=== PATIENT | male | born 1955 | race Caucasian/White ===

== ENCOUNTER 2018-05-26 15:59 | Inpatient (IN) | payer OTHER ==
[~2018-05-26] VITALS: Ht 167.6 cm; Wt 67.5 kg
--- NOTE | 2018-05-26 18:28 | ED Respiratory ---
General Chief Complaint: Respiratory Problems Stated Complaint: SOB/SHOULDER PAIN/COUGH Nursing Triage Note: SOB for several weeks. Denies CP. C/o pain with cough in left shoulder and rib cage. Source: patient, other Exam Limitations: no limitations History of Present Illness Date Seen by Provider: May 26, 2018 Time Seen by Provider: 18:20 Initial Comments he patient presents to ER by private conveyance with his friend chief complaint for the past week with significant shortness of breath and productive cough. About 1-2 weeks ago he went to urgent care and they listened to him heard wheezing and gave him some prednisone and doxycycline as well as some Vistaril because he said he is having a hard time getting to sleep. He does not feel that this made any difference. The prednisone, hard time getting sleep. He took all but one tablet of it. He completed the doxycycline. History of asthma as a child but has not been on breathing treatments or followed by since that time. He does not know that he has any history of COPD, frequent pneumonia. He does smoke typically 1-1/2 packs a day however he slowed down. He's not had any fevers objectively but he does subjectively have some chills. He says he has a roommate who recently had a lot of coughing but no history of pneumonia, tuberculosis, HIV etc. His left upper chest gets to hurting after he coughs a lot and that also when he is coughing fits makes him want to throw up. He does not have any albuterol or similar nebulized medicine. No edema or history of heart problems. He does not take any routine or prescription in medicines. Allergies and Home Medications Allergies Coded Allergies: No Known Drug Allergies (Unverified , 05/26/18) Patient Home Medication List Home Medication List Reviewed: Yes Review of Systems Review of Systems Constitutional: No chills, No fever, No malaise EENTM: No ear discharge, No hearing loss, No ear pain Respiratory: cough, short of breath, wheezing Cardiovascular: chest pain (Left Chest); No edema Gastrointestinal: No abdominal pain, No constipation, No diarrhea Genitourinary: No discharge, No dysuria Musculoskeletal: No back pain, No joint pain Past Mszbzrl-Nbbabv-Mjxplq Hx Patient Social History Alcohol Use: Regular Use Alcohol Beverage of Choice: Beer Recreational Drug Use: No Smoking Status: Current Everyday Smoker Type Used: Cigarettes (1.5 ppd) Recent Foreign Travel: No Contact w/Someone Who Travel: No Recent Infectious Disease Expo: No Physical Exam Vital Signs - First Documented 05/26/18 16:45 Temp 97.1 Pulse 122 Resp 20 Pulse Ox 98 O2 Delivery Room Air Capillary Refill : Less Than 3 Seconds Height: 5'6.00" Weight: 162lbs. oz. 73.064545nx; BMI Method:Stated General Appearance: WD/WN, mild distress Eyes: Bilateral Eye Normal Inspection, Bilateral Eye PERRL, Bilateral Eye EOMI HEENT: PERRL/EOMI, normal ENT inspection, TMs normal, pharynx normal Neck: non-tender, full range of motion, supple, normal inspection Respiratory: chest non-tender, no respiratory distress, no accessory muscle use , decreased breath sounds, wheezing, expiration (Prolonged) Cardiovascular: normal peripheral pulses, regular rate, rhythm Gastrointestinal: normal bowel sounds, non tender, soft Neurologic/Psychiatric: alert, normal mood/affect, oriented x 3 Skin: normal color, warm/dry Focused Exam Lactate Level 05/26/18 18:45: Lactic Acid Level 2.52*H Lactic Acid Level Laboratory Tests Test 05/26/18 18:45 Lactic Acid Level 2.52 MMOL/L (0.50-2.00) *H Progress/Results/Core Measures Suspected Sepsis Recent Fever Within 48 Hours: No Infection Criteria Present: None New/Unexplained Altered Menta: No Sepsis Screen: No Definite Risk SIRS Temperature:97.1 Pulse: 122 Respiratory Rate: 20 Laboratory Tests 05/26/18 18:45: White Blood Count 11.0 Blood Pressure / Mean: 05/26/18 18:45: Lactic Acid Level 2.52*H Laboratory Tests 05/26/18 18:45: Creatinine 0.87, INR Comment 1.1, Platelet Count 258, Total Bilirubin 1.7H Results/Orders Lab Results Laboratory Tests Test 05/26/18 18:45 05/26/18 19:46 Range/Units White Blood Count 11.0 4.3-11.0 10^3/uL Red Blood Count 5.30 4.35-5.85 10^6/uL Hemoglobin 16.9 13.3-17.7 G/DL Hematocrit 48 40-54 % Mean Corpuscular Volume 91 80-99 FL Mean Corpuscular Hemoglobin 32 25-34 PG Mean Corpuscular Hemoglobin Concent 35 32-36 G/DL Red Cell Distribution Width 12.3 10.0-14.5 % Platelet Count 258 130-400 10^3/uL Mean Platelet Volume 9.0 7.4-10.4 FL Neutrophils (%) (Auto) 87 H 42-75 % Lymphocytes (%) (Auto) 6 L 12-44 % Monocytes (%) (Auto) 7 0-12 % Eosinophils (%) (Auto) 0 0-10 % Basophils (%) (Auto) 0 0-10 % Neutrophils # (Auto) 9.6 H 1.8-7.8 X 10^3 Lymphocytes # (Auto) 0.7 L 1.0-4.0 X 10^3 Monocytes # (Auto) 0.8 0.0-1.0 X 10^3 Eosinophils # (Auto) 0.0 0.0-0.3 10^3/uL Basophils # (Auto) 0.0 0.0-0.1 10^3/uL Neutrophils % (Manual) 91 % Lymphocytes % (Manual) 2 % Monocytes % (Manual) 6 % Atypical Lymphocytes 1 % Prothrombin Time 13.9 12.2-14.7 SEC INR Comment 1.1 0.8-1.4 Activated Partial Thromboplast Time 29 24-35 SEC D-Dimer 1.09 H 0.00-0.49 UG/ML Sodium Level 128 L 135-145 MMOL/L Potassium Level 4.4 3.6-5.0 MMOL/L Chloride Level 87 L 98-107 MMOL/L Carbon Dioxide Level 22 21-32 MMOL/L Anion Gap 19 H 5-14 MMOL/L Blood Urea Nitrogen 6 L 7-18 MG/DL Creatinine 0.87 0.60-1.30 MG/DL Estimat Glomerular Filtration Rate > 60 BUN/Creatinine Ratio 7 Glucose Level 116 H 70-105 MG/DL Lactic Acid Level 2.52 *H 0.50-2.00 MMOL/L Calcium Level 10.1 8.5-10.1 MG/DL Corrected Calcium 9.9 8.5-10.1 MG/DL Total Bilirubin 1.7 H 0.1-1.0 MG/DL Aspartate Amino Transf (AST/SGOT) 24 5-34 U/L Alanine Aminotransferase (ALT/SGPT) 24 0-55 U/L Alkaline Phosphatase 104 40-136 U/L Troponin I < 0.30 <0.30 NG/ML C-Reactive Protein High Sensitivity 2.65 H 0.00-0.50 MG/DL B-Type Natriuretic Peptide 142.1 H <100.0 PG/ML Total Protein 8.3 H 6.4-8.2 GM/DL Albumin 4.3 3.2-4.5 GM/DL Serum Alcohol < 10 <10 MG/DL Urine Color YELLOW Urine Clarity CLEAR Urine pH 6 5-9 Urine Specific [place] 1.025 H 1.016-1.022 Urine Protein 3+ H NEGATIVE Urine Glucose (UA) NEGATIVE NEGATIVE Urine Ketones 4+ H NEGATIVE Urine Nitrite NEGATIVE NEGATIVE Urine Bilirubin 1+ H NEGATIVE Urine Urobilinogen 4 H NORMAL MG/DL Urine Leukocyte Esterase 1+ H NEGATIVE Urine RBC (Auto) 2+ H NEGATIVE Urine RBC 0-2 /HPF Urine WBC 0-2 /HPF Urine Squamous Epithelial Cells 0-2 /HPF Urine Crystals NONE /LPF Urine Bacteria FEW H /HPF Urine Casts PRESENT /LPF Urine Hyaline Casts 2-5 H /LPF Urine Mucus MODERATE H /LPF Urine Culture Indicated NO Micro Results Microbiology 05/26/18 Influenza Types A,B Antigen ([place]) - Final, Complete My Orders Orders - TONE TRAN Alcohol (05/26/18 18:21) BNP (05/26/18 18:21) Cbc With Automated Diff (05/26/18 18:21) Comprehensive Metabolic Panel (05/26/18 18:21) Hs C Reactive Protein (05/26/18 18:21) Fibrin Degradation Products (05/26/18 18:21) Protime With Inr (05/26/18 18:21) Partial Thromboplastin Time (05/26/18 18:21) Troponin I (05/26/18 18:21) Blood Culture (05/26/18 18:21) Sputum Culture (05/26/18 18:21) Chest Pa/Lat (2 View) (05/26/18 18:21) Albuterol/Ipra Inhalation Soln (Duoneb I (05/26/18 18:30) Saline Lock/Iv-Start (05/26/18 18:21) Lactic Acid Analyzer (05/26/18 18:21) Svn Small Volume Nebulizer (05/26/18 18:21) Urinalysis (05/26/18 18:24) Urine Culture (05/26/18 18:24) Saline Lock/Iv-Start (05/26/18 18:24) Ekg Tracing (05/26/18 18:24) Vital Signs Adult Sepsis Patie Q15M (05/26/18 18:24) O2 (05/26/18 18:24) Remove Rings In Anticipation O (05/26/18 18:24) Influenza A And B Antigens (05/26/18 18:24) Ceftriaxone For Iv Use (Rocephin For I (05/26/18 18:30) Azithromycin Injection (Zithromax Inject (05/26/18 18:30) Manual Differential (05/26/18 18:45) Saline Lock/Iv-Start (05/26/18 19:30) Ns Iv 500 Ml (Sodium Chloride 0.9%) (05/26/18 19:30) Ns Iv 1000 Ml (Sodium Chloride 0.9%) (05/26/18 19:30) Labetalol Injection (Normodyne Injection (05/26/18 20:16) Medications Given in ED Current Medications Medications Dose Ordered Sig/[place] Route Start Time Stop Time Status Last Admin Dose Admin Albuterol/ Ipratropium 3 ml ONCE ONCE INH 05/26/18 18:30 05/26/18 18:31 DC 05/26/18 19:19 3 ML Azithromycin 500 mg/Sodium Chloride 250 ml @ 250 mls/hr ONCE ONCE IV 05/26/18 18:30 05/26/18 19:29 DC 05/26/18 20:22 250 MLS/HR Ceftriaxone Sodium 1000 mg/ Sodium Chloride 60 ml @ 100 mls/hr ONCE ONCE IV 05/26/18 18:30 05/26/18 19:05 DC 05/26/18 20:06 100 MLS/HR Labetalol HCl 20 mg STK-MED ONCE .ROUTE 05/26/18 20:16 05/26/18 20:17 DC 05/26/18 20:19 20 MG Sodium Chloride 500 ml @ 0 mls/hr Q0M ONCE IV 05/26/18 19:30 05/26/18 19:32 DC 05/26/18 20:26 999 MLS/HR Vital Signs/I&O 05/26/18 05/26/18 16:45 19:20 Temp 97.1 Pulse 122 Resp 20 B/P (MAP) Pulse Ox 98 97 O2 Delivery Room Air Room Air Capillary Refill : Less Than 3 Seconds Progress Note #1: Time: 18:54 Progress Note Mildly concerning findings on the EKG with some less than one block of depression in the inferior leads and reciprocal elevation about 1 block in the AVR. We'll see what his labs show and plan to hold onto him getting a consultation with cardiology. Sepsis workup and 2 view chest x-ray. Progress Note #2: Time: 20:40 Progress Note Before the patient got his IV fluids his blood pressure continued stayed persistently high above 200 m mercury systolic and above 110 diastolic so we have given him 20 of labetalol since his heart rate was in the 120s still. He responded well with a blood pressure in the 130s and a heart rate in the 80s to 90s and we are giving him his fluid bolus. Clinically and laboratory evidence points to him being dehydrated with ketones in his urine and elevated BUNs. He is not experiencing acute kidney injury however he does have hyponatremia. There is concern for possible malignancy causing his left pleural effusion and pneumonia. Continue to treat with Rocephin and azithromycin and put in inpatient in the ICU. ECG Initial ECG Impression Date: May 26, 2018 Initial ECG Impression Time: 18:44 Initial ECG Rate: 122 Initial ECG Rhythm: S.Tach Initial ECG Intervals: Normal Initial ECG Impression: Nonspecific Changes Initial ECG Comparisson: No Previous ECG Available Comment There is only one block of elevation in the right arm lead and in the inferior leads II, III, and F aVF there since the less than one block of depression of the ST segment. This is not diagnostic of a ST elevation myocardial infarction. It may however indicate a strain pattern. Diagnostic Imaging Diagonstic Imaging: Xray (2v) Plain Films/CT/US/NM/MRI: chest Comments NAME: NADINESIGIFREDO [facility] REC#: [id number] PHYSICIAN: TONE TRAN MD CC: PETER GREEN MD; TONE TRAN Page 1 of 1 RADIOLOGY REPORT VIA [facility]. [place], [place] CC: PETER GREEN MD; TONE TRAN Page 1 of 1 RADIOLOGY REPORT NAME: NADINE,SIGIFREDO MED REC#: [id number] PT STATUS: REG ER : 1955 PHYSICIAN: TONE TRAN MD ADMIT DATE: 05/26/18/ER Signed Date of Exam: 05/26/18 CHEST PA/LAT (2 VIEW) INDICATION: Shortness of breath. Persistent cough. COMPARISON: No previous for comparison. FINDINGS: There is obscuration of the left hemidiaphragm and pleural space. There is shift of the mediastinum to the right. Right lung is well aerated and clear. No pneumothorax or pleural effusion on the right. IMPRESSION: 1. Complete opacification of the left hemithorax with shift of the mediastinum to the right consistent with pleural effusion causing some mass effect. 2. Right lung is clear without evidence of congestive failure. Dictated by: Dictated on workstation # [id number] Dict: 05/26/181914 Trans: 05/26/181936 Interpreted by: PETER GREEN MD Electronically signed by: PETER GREEN MD 05/26/181936 Reviewed: Reviewed by Me Departure Communication (Admissions) Time/Spoke to Admitting Phy: 20:30 Discussed case lab imaging findings with Dr. Arizmendi and are concerned patient may have a malignancy causing an obstructive pneumonia and his left pleural effusion. He agrees with antibiotics and fluids at this time. He will see the patient in the morning. We discussed that he has blood pressure was very elevated and responded very well to 20 mg labetalol IV 1. He agrees with ICU placement. Impression Primary Impression: Pneumonia Qualified Codes: J18.9 - Pneumonia, unspecified organism Additional Impressions: Pleural effusion associated with pulmonary infection Sepsis Qualified Codes: A41.9 - Sepsis, unspecified organism Hyponatremia Hypertension Qualified Codes: I10 - Essential (primary) hypertension Disposition: 09 ADMITTED INPATIENT Condition: Improved Admissions Decision to Admit Reason: Admit from ER (General) Decision to Admit/Date: May 26, 2018 Time/Decision to Admit Time: 20:41 Departure-Patient Inst. Referrals: UNKNOWN (PCP/Family) Primary Care Physician TONE TRAN May 26, 2018 18:28
[2018-05-26] MEDS ORDERED: AZITHROMYCIN INJECTION 500 MG in NS (IVPB) 250 ML IV ONE (18:30)
[2018-05-26] MEDS ORDERED: RT-ALBUTEROL/IPRATROPIUM 3 ML (DUONEB) VIAL INH ONE (18:30)
[2018-05-26] MEDS ORDERED: cefTRIAXone FOR IV USE 1,000 MG in NS (IVPB) 50 ML IV ONE (18:30)
[2018-05-26 19:05] LABS: BASOPHILS % (AUTO) 0 % (0-10); EOSINOPHILS % (AUTO) 0 % (0-10); HEMATOCRIT 48 % (40-54); HEMOGLOBIN 16.9 G/DL (13.3-17.7); LYMPHOCYTES # (AUTO) 0.7 X 10^3 (1.0-4.0); LYMPHOCYTES % (AUTO) 6 % (12-44); MEAN CORPUSCULAR HEMOGLOBIN 32 PG (25-34); MEAN CORPUSCULAR HGB CONC 35 G/DL (32-36); MEAN CORPUSCULAR VOLUME 91 FL (80-99); MONOCYTES # (AUTO) 0.8 X 10^3 (0.0-1.0); MONOCYTES % (AUTO) 7 % (0-12); NEUTROPHILS # (AUTO) 9.6 X 10^3 (1.8-7.8); NEUTROPHILS % (AUTO) 87 % (42-75); PLATELET COUNT 258 10^3/uL (130-400); RED CELL DISTRIBUTION WIDTH 12.3 % (10.0-14.5)
--- NOTE | 2018-05-26 19:19 | Diagnostic Imaging Report ---
INDICATION: Shortness of breath. Persistent cough. COMPARISON: No previous for comparison. FINDINGS: There is obscuration of the left hemidiaphragm and pleural space. There is shift of the mediastinum to the right. Right lung is well aerated and clear. No pneumothorax or pleural effusion on the right. IMPRESSION: 1. Complete opacification of the left hemithorax with shift of the mediastinum to the right consistent with pleural effusion causing some mass effect. 2. Right lung is clear without evidence of congestive failure. Dictated by: Dictated on workstation # [id number]
[2018-05-26 19:22] LABS: FIBRIN DEGRADATION PRODUCTS 1.09 UG/ML (0.00-0.49); INR 1.1 (0.8-1.4); PROTHROMBIN TIME PATIENT 13.9 SEC (12.2-14.7)
[2018-05-26 19:26] LABS: ALANINE AMINOTRANSFERASE 24 U/L (0-55); ALBUMIN 4.3 GM/DL (3.2-4.5); ALKALINE PHOSPHATASE 104 U/L (40-136); BILIRUBIN,TOTAL 1.7 MG/DL (0.1-1.0); BUN/CREATININE RATIO 7; CALCIUM 10.1 MG/DL (8.5-10.1); CARBON DIOXIDE 22 MMOL/L (21-32); CHLORIDE 87 MMOL/L (98-107); CREATININE SERUM 0.87 MG/DL (0.60-1.30); GFR ESTIMATED > 60; GLUCOSE 116 MG/DL (70-105); POTASSIUM 4.4 MMOL/L (3.6-5.0); SODIUM 128 MMOL/L (135-145); TOTAL PROTEIN 8.3 GM/DL (6.4-8.2)
[2018-05-26] MEDS ORDERED: NS IV 500 ML 500 ML IV ONE (19:30)
[2018-05-26] MEDS ORDERED: NS IV 1000 ML 1,000 ML IV SCH (19:30)
[2018-05-26 19:44] LABS: ATYPICAL LYMPHOCYTES 1 %; LYMPHOCYTES % (MANUAL) 2 %; MONOCYTES % (MANUAL) 6 %; NEUTROPHILS % (MANUAL) 91 %
[2018-05-26 19:51] LABS: BILIRUBIN,URINE 1+ (NEGATIVE); CLARITY,URINE CLEAR; COLOR,URINE YELLOW; GLUCOSE, URINE (UA) NEGATIVE (NEGATIVE); KETONES,URINE 4+ (NEGATIVE); LEUKOCYTE ESTERASE ,URINE 1+ (NEGATIVE); NITRITE,URINE NEGATIVE (NEGATIVE); PH,URINE 6 (5-9); PROTEIN,URINE 3+ (NEGATIVE); UROBILINOGEN,URINE 4 MG/DL (NORMAL)
[2018-05-26 20:04] LABS: BACTERIA,URINE FEW /HPF; RBC,URINE 0-2 /HPF; SQUAMOUS EPITHELIAL CELL,UR 0-2 /HPF; WBC,URINE 0-2 /HPF
--- OUTSIDE RECORDS SUMMARY | 2018-05-26 20:09 | XMS REPORT ---
Author Author TAMMY ROSE Organization [facility] Address [address] [place] [address] Care Team Providers Care Real Estate Sales Agent Name Role Phone TAMMY ROSE Unavailable PROBLEMS Type Condition ICD9-CM Code [id number] Code Onset Dates Condition Status SNOMED Code Problem Primary insomnia F51.01 Active [id number] ALLERGIES No Known Allergies ENCOUNTERS Encounter Location Date Diagnosis [facility] [address] [facility] [id number] [address] Apr, Bronchitis J40 and Primary insomnia F51.01 IMMUNIZATIONS No Known Immunizations SOCIAL HISTORY Never Assessed REASON FOR VISIT cough, PT reports he is having hard time breathing. PT notes congestion - Cortez ELLISON, PT reports he struggles to get to sleep and has been drinking to get him to sleep. PT notes he cant stay asleep and has tried OTC sleep aids but has not working. -Hannah ELLISON, PT notes he has not sleep well in the last week - Cortez ELLISON PLAN OF CARE VITAL SIGNS Height 66 in 2018-04-30 Weight 152.1 lbs 2018-04-30 Temperature 97.4 degrees Fahrenheit 2018-04-30 Heart Rate 134 bpm 2018-04-30 Respiratory Rate 20 2018-04-30 Oximetry 98 % 2018-04-30 BMI 24.55 kg/m2 2018-04-30 Blood pressure systolic 150 mmHg 2018-04-30 Blood pressure diastolic 70 mmHg 2018-04-30 MEDICATIONS Medication Instructions Dosage Frequency Start Date End Date Duration Status HydrOXYzine HCl 50 mg Orally Once a day, at bedtime 1 tablet as needed Apr, Active PredniSONE 20 mg Orally Once a day 2 tablets 24h Apr, Apr, 5 days Active Doxycycline Hyclate 100 mg Orally every 12 hrs 1 capsule 12h Apr, Apr, 10 day(s) Active RESULTS No Results PROCEDURES No Known procedures INSTRUCTIONS MEDICATIONS ADMINISTERED No Known Medications MEDICAL (GENERAL) HISTORY Type Description Date Surgical History No know Surgical history
[2018-05-26] MEDS ORDERED: LABETALOL HCL 20 MG/4 ML VIAL ONE (20:16)
[2018-05-26] MEDS ORDERED: KETOROLAC 30 MG/ML VIAL IVP ONE (20:45)
[2018-05-26 21:40] VITALS: BP 171/99
[2018-05-26 22:00] VITALS: BP 170/98
[2018-05-26 23:00] VITALS: BP 157/101
[2018-05-26] MEDS ORDERED: ACETAMINOPHEN 500 MG TAB (TYLENOL) PO PRN (23:30)
[2018-05-26] MEDS: NS W/KCL 20 MEQ/L 1,000 ML IV SCH (23:55)
[2018-05-26] MEDS ORDERED: LORazepam 1 MG (ATIVAN) TAB ONE (23:58)
[2018-05-27] VITALS (25 sets, daily range): BP systolic 92–226; BP diastolic 56–120
[2018-05-27] MEDS ORDERED: LORazepam 1 MG (ATIVAN) TAB PO ONE
[2018-05-27] MEDS ORDERED: LORazepam INJ 2 MG/ML (ATIVAN) VIAL IV PRN (02:30)
[2018-05-27] MEDS ORDERED: LORazepam 1 MG (ATIVAN) TAB PO PRN (02:30)
[2018-05-27] MEDS ORDERED: THIAMINE 100 MG/ML 2 ML (VITAMIN B-1) VIAL IV ONE (02:30)
[2018-05-27 03:48] LABS: BASOPHILS % (AUTO) 0 % (0-10); EOSINOPHILS % (AUTO) 0 % (0-10); HEMATOCRIT 40 % (40-54); HEMOGLOBIN 14.2 G/DL (13.3-17.7); LYMPHOCYTES # (AUTO) 0.9 X 10^3 (1.0-4.0); LYMPHOCYTES % (AUTO) 9 % (12-44); MEAN CORPUSCULAR HEMOGLOBIN 32 PG (25-34); MEAN CORPUSCULAR HGB CONC 35 G/DL (32-36); MEAN CORPUSCULAR VOLUME 91 FL (80-99); MEAN PLATELET VOLUME 9.1 FL (7.4-10.4); MONOCYTES # (AUTO) 0.8 X 10^3 (0.0-1.0); MONOCYTES % (AUTO) 9 % (0-12); NEUTROPHILS # (AUTO) 7.7 X 10^3 (1.8-7.8); NEUTROPHILS % (AUTO) 82 % (42-75); PLATELET COUNT 242 10^3/uL (130-400); RED CELL DISTRIBUTION WIDTH 12.4 % (10.0-14.5); WHITE BLOOD COUNT 9.4 10^3/uL (4.3-11.0)
[2018-05-27 04:15] LABS: BUN/CREATININE RATIO 12; CALCIUM 8.7 MG/DL (8.5-10.1); CARBON DIOXIDE 16 MMOL/L (21-32); CHLORIDE 94 MMOL/L (98-107); CREATININE SERUM 0.78 MG/DL (0.60-1.30); GFR ESTIMATED > 60; GLUCOSE 128 MG/DL (70-105); MAGNESIUM 1.7 MG/DL (1.8-2.4); PHOSPHORUS 4.1 MG/DL (2.3-4.7); POTASSIUM 4.7 MMOL/L (3.6-5.0); SODIUM 126 MMOL/L (135-145)
[2018-05-27] MEDS ORDERED: guaiFENesin/CODEINE (ROBITUSSIN AC) 10ML UDC ONE (04:55)
[2018-05-27] MEDS: guaiFENesin/CODEINE (ROBITUSSIN AC) 10ML UDC PO PRN (05:03)
--- NOTE | 2018-05-27 05:39 | Pulmonary Consultation ---
History of Present Illness History of Present Illness Date of Consultation 05/27/18 05:32 Time Seen by Provider: 05:32 Date of Admission History of Present Illness 62yo long time smoker patient presented to ED secondary to worsening SOB and productive cough and failing out patient treatment. 2wks ago he went to urgent care and was given prednisone and doxycycline. Pt did complete doxycycline. PT does not normally go to doctors. I am consulted for pulmonary management. Allergies and Home Medications Allergies Coded Allergies: No Known Drug Allergies (Unverified , 05/26/18) Past Pckyvev-Tbxxbp-Qvpzyb Hx Patient Social History Alcohol Use: Regular Use Number of Drinks Today: 0 Alcohol Beverage of Choice: Beer Recreational Drug Use: No Smoking Status: Current Everyday Smoker Type Used: Cigarettes Recent Foreign Travel: No Contact w/Someone Who Travel: No Recent Infectious Disease Expo: No Recent Hopitalizations: No Immunizations Up To Date Tetanus Booster (TDap): Unknown PED Vaccines UTD: No Seasonal Allergies Seasonal Allergies: No Past Medical History Surgeries: No Respiratory: Yes Asthma Currently Using CPAP: No Currently Using BIPAP: No Cardiac: Yes Neurological: Yes (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) Genitourinary: No Gastrointestinal: No Musculoskeletal: Yes Arthritis Endocrine: No HEENT: Yes Tonsilitis Hearing Impairment: Hard of Hearing Cancer: No Psychosocial: Yes Anxiety Integumentary: No Blood Disorders: No Family Medical History Cardiovascular disease 19 MOTHER Review of Systems Time Seen by Provider: 05:50 Constitutional: Sweats, Weakness, Malaise; No: Fever, Chills, Other Eyes: No: Pain, Vision change, Conjunctivae inflammation, Eyelid inflammation, Other, Redness Respiratory: Cough, Dry, Shortness of breath, SOB with excertion, Wheezing; No : Hemoptysis Cardiovascular: Chest Pain, Orthopnea, Paroxysmal Noc. Dyspnea Gastrointestinal: No: Nausea, Vomiting, Abdominal Pain, Diarrhea, Constipation , Melena, Hematochezia, Other Genitourinary: No Dysuria, No Frequency, No Incontinence, No Hematuria, No Retention, No Other Sepsis Event Evaluation Height, Weight, BMI Height: 5'6.00" Weight: 156lbs. 4.0oz. 70.387887ha; 25.2 BMI Method:Stated Exam Exam Vital Signs Date Time Temp Pulse Resp B/P (MAP) Pulse Ox O2 Delivery O2 Flow Rate FiO2 05/27/18 04:00 97.8 05/27/18 03:00 99 21 188/118 (141) 96 Nasal Cannula 2.00 05/27/18 02:00 101 31 173/101 (125) 95 Nasal Cannula 2.00 05/27/18 01:30 Nasal Cannula 2.00 05/27/18 01:00 96 22 175/101 (125) 92 Room Air 05/27/18 00:59 98 05/27/18 00:00 93 24 196/96 (129) 94 Room Air 05/27/18 00:00 97.2 05/26/18 23:00 88 20 157/101 (119) 96 Room Air 05/26/18 22:00 84 25 170/98 (122) 96 Room Air 05/26/18 21:45 84 05/26/18 21:40 96.6 83 18 171/99 (123) 91 Room Air 05/26/18 21:33 97.1 122 20 147/94 (111) 97 Room Air 05/26/18 19:20 97 Room Air 05/26/18 16:45 97.1 122 20 98 Room Air I & O 05/27/18 07:00 Intake Total 2010 ml Output Total 50 ml Balance 1960 ml Height & Weight Height: 5'6.00" Weight: 156lbs. 4.0oz. 70.294994ll; 25.2 BMI Method:Stated General Appearance: Anxious, Moderate Distress HEENT: PERRL/EOMI, Normal ENT Inspection, Pharynx Normal Neck: Full Range of Motion, Normal Inspection, Non Tender Respiratory: Accessory Muscle Use, Decreased Breath Sounds (left > Right ) Cardiovascular: Regular Rate, Rhythm, No Edema Capillary Refill: Less Than 3 Seconds Gastrointestinal: normal bowel sounds, non tender, soft Neurologic/Psychiatric: Alert, Oriented x3 Skin: Normal Color Results Lab Laboratory Tests 05/26/18 18:45 05/27/18 03:10 Assessment/Plan Assessment/Plan large left pleural effusion with opacification of left lung and mass/ compression effect r/o cancer -Will place Chest tube with US guidance secondary to size of pleural fluid -Will do CT of chest after thoracentesis to r/o Mass Metabolic acidosis -Monitor -IVF HTN urgency -give Vasotec 2.5 mg IV x 1 -Start Cardene gtt Hyponatremia - possibly SIADH from cancer tobacco use -education I explained to patient in detail his current condition of large left pleural effusion. He is agreeable to chest tube/thoracentesis. TYLER PAINTING DO May 27, 2018 05:39
[2018-05-27] MEDS ORDERED: ENALAPRILAT 2.5 MG/2 ML (VASOTEC) VIAL IV ONE ×2 (05:45→05:49)
[2018-05-27] MEDS ORDERED: MIDAZOLAM 5 MG/5 ML (VERSED) VIAL ONE (06:03)
[2018-05-27] MEDS ORDERED: fentaNYL INJECTION 100 MCG/2 ML AMP ONE (06:03)
[2018-05-27] MEDS ORDERED: LIDOCAINE 1% INJ 20 ML 20 ML VIAL ONE ×2 (06:27→15:02)
[2018-05-27] MEDS ORDERED: NS IV 1000 ML 1,000 ML ONE (06:43)
[2018-05-27] MEDS ORDERED: CATHETER FLUSH 10 ML SYR IV PRN (07:00)
[2018-05-27] MEDS ORDERED: FLU QUADRIvalent (5+ YOA) 2018-2019 (AFLURIA) 0.5 ML IM ONE (07:15)
--- NOTE | 2018-05-27 07:19 | Pulmonary Procedures ---
Pulmonary Procedures Date of Procedure Date of Service: May 27, 2018 Chest Tube : Chest Tube Position: Left (US guided) Chest Tube Location: Lateral Chest Size of Turkish Tube (cm): 28 Chest Tube Procedure: betadine prep, sterile drapes applied, sterile dressing applied Anesthesia: 1% Lidocaine Volume Anesthetic (ccs): 10 [place] of Air [place]: No (gush of pleural fluid) Number of Attempts: 1 Time of Successful Intubation: 07:00 Tube Drainage: pleural vacc to gravity Tube Sutured to Skin: Yes Post Procedure CXR?: Yes (pending ) TYLER PAINTING DO May 27, 2018 07:19
--- NOTE | 2018-05-27 07:32 | Diagnostic Imaging Report ---
INDICATION: Dyspnea, followup pleural effusion. COMPARISON: 05/26/2018. FINDINGS: Unchanged large left pleural effusion displacing the mediastinum to the right. Complete opacification left hemithorax is unchanged. Compressive atelectasis right mid and lower lung zones is developing. Grossly stable cardiomediastinal silhouette. No pneumothorax. IMPRESSION: 1. Worsening mediastinal shift secondary to large left pleural effusion. Dictated by: Dictated on workstation # [id number]
--- NOTE | 2018-05-27 07:43 | Diagnostic Imaging Report ---
INDICATION: Status post chest tube placement. COMPARISON: 05/27/2018. FINDINGS: Large bore left-sided chest tube has been placed and has tip terminating in the lower left hemithorax. There is now a pneumothorax present measuring up to 2.1 cm in the mid left hemithorax. Interstitial opacities and consolidations throughout the left lung are present. Resolution of right to left mediastinal shift. IMPRESSION: 1. Decreased size of large left pleural effusion status post chest tube placement. Small left-sided pneumothorax is now present. 2. Heterogeneous opacities throughout the left lung may relate to reexpansion pulmonary edema. Dictated by: Dictated on workstation # [id number]
[2018-05-27] MEDS: NS W/KCL 20 MEQ/L 1,000 ML IV SCH ×4 (08:24→21:39)
[2018-05-27] MEDS: MULTIVIT W/MINERALS TAB (THERAGRAN M) PO SCH (08:24)
[2018-05-27] MEDS: NICOTINE 14 MG (NICODERM) PATCH TD SCH (08:25)
[2018-05-27] MEDS: THIAMINE 100 MG (VITAMIN B-1) TAB PO SCH (08:25)
[2018-05-27] MEDS: AZITHROMYCIN 250 MG TAB (ZITHROMAX) PO SCH (08:25)
[2018-05-27] MEDS: FOLIC ACID 1 MG TAB PO SCH (08:25)
[2018-05-27] MEDS: MAGNESIUM 1 GM/100 ML IVPB 100 ML IV SCH (08:29)
[2018-05-27] MEDS: POTASSIUM CL 10MEQ/50ML IVPB 50 ML IV SCH (08:29)
[2018-05-27] MEDS: KCL 20 MEQ TAB (K-DUR) PO SCH (08:30)
[2018-05-27 08:33] LABS: BODY FLUID PH 7.3; BODY FLUID SOURCE PLEURAL
[2018-05-27 08:51] LABS: BODY FLUID TRIGLYCERIDES 36 MG/DL; GLUCOSE,BODY FLUID 19 MG/DL; LDH,BODY FLUID 1497 U/L; TOTAL PROTEIN,BODY FLUID 4.8 G/DL
[2018-05-27 09:08] LABS: BODY FLUID APPEARENCE MOD BLDY; BODY FLUID COLOR RED; BODY FLUID RBC COUNT 115200 /uL; BODY FLUID WBC TOTAL COUNT 560 /uL
[2018-05-27] MEDS: RT-ALBUTEROL/IPRATROPIUM 3 ML (DUONEB) VIAL INH SCH ×4 (09:32→20:49)
[2018-05-27 10:11] LABS: BF OTHER CELLS 51 %; LYMPHOCYTES,BODY FLUID 21 %
[2018-05-27 10:12] LABS: AMPHETAMINE SCREEN, URINE NEGATIVE (NEGATIVE); BARBITURATE SCREEN URINE NEGATIVE (NEGATIVE); BENZODIAZEPINES SCREEN URINE NEGATIVE (NEGATIVE); CANNABINOID SCREEN, URINE POSITIVE (NEGATIVE); COCAINE SCREEN URINE NEGATIVE (NEGATIVE); METHADONE STAT NEGATIVE (NEGATIVE); METHAMPHETAMINE SCREEN URINE S NEGATIVE (NEGATIVE); OPIATE SCREEN URINE NEGATIVE (NEGATIVE); OXYCODONE STAT NEGATIVE (NEGATIVE); PROPOXYPHENE STAT NEGATIVE (NEGATIVE); TRICYCLIC ANTIDEPRESSANTS SCRE NEGATIVE (NEGATIVE)
[2018-05-27] MEDS ORDERED: HYDR50TA76 PO (10:14)
[2018-05-27] MEDS ORDERED: GUAI-148 PO (10:14)
[2018-05-27] MEDS: niCARdipine IV 50 MG in NS (IVPB) 230 ML IV SCH ×2 (10:34→16:07)
--- NOTE | 2018-05-27 11:21 | Diagnostic Imaging Report ---
INDICATION: Pneumothorax. COMPARISON: 05/27/2018. FINDINGS: The previously seen left pneumothorax has resolved. A left thoracostomy tube remains in place. There is diffuse airspace disease in the left lung. There is a moderate amount of subcutaneous emphysema about the left chest wall. There is minimal infiltrate in the right lung base. There is cardiomegaly and mild venous congestion. IMPRESSION: Resolution of the previously seen left pneumothorax with persistent diffuse bilateral airspace disease in the left lung. Cardiomegaly and mild venous congestion with patchy infiltrate in the right lung base. Dictated by: Dictated on workstation # [id number]
[2018-05-27] MEDS: morphine INJ 4 MG/ML 1 ML (VIAL/SYRINGE) IVP PRN ×2 (13:01→18:30)
[2018-05-27] MEDS ORDERED: NS 250 ML (IVPB) BAG IV ONE (15:45)
[2018-05-27] MEDS ORDERED: IOHEXOL 350 MG/ML 100 ML (OMNIPAQUE 350) VIAL IV ONE (15:45)
--- NOTE | 2018-05-27 16:27 | History & Physical-Hospitalist ---
History of Present Illness HPI/Chief Complaint The patient is a 62-year-old white male who presented to the emergency room last night with complaints of shortness of breath. The patient reported that he had begun to note shortness of breath about 2 months ago and it has steadily gotten worse. He had at least 2 contacts with walk-in clinics and oral antibiotics were prescribed. This did not seem to help. He denied fever or chills. He stopped smoking during this period of time. He reports that he had about a 76-qwex-kwbt smoking history to that point. Workup in the emergency room showed a total whiteout of the left lung field with deviation of the trachea to the right. The air bronchogram showed at least patency of the very proximal portion of the left mainstem bronchus. He has no past history of heart disease. Source: patient Date Seen 05/27/18 Time Seen by a Provider: 15:45 Attending Physician Aba Mackenzie MD PCP No,Local Physician Referring Physician Date of Admission May 26, 2018 at 20:30 Home Medications & Allergies Home Medications Reviewed patient Home Medication Reconciliation performed by pharmacy medication reconciliations performing arts technicians and/or nursing. Patients Allergies have been reviewed. Allergies Allergies Coded Allergies No Known Drug Allergies (Hdovqivxdi85/29/18) Past Ejnldxo-Smtjgl-Jebvok Hx Past Med/Social Hx: Reviewed Nursing Past Med/Soc Hx Patient Social History Alcohol Use: Regular Use Number of Drinks Today: 0 Alcohol Beverage of Choice: Beer Recreational Drug Use: No Smoking Status: Current Everyday Smoker Type Used: Cigarettes Physical Abuse Screen: No Sexual Abuse: No Recent Foreign Travel: No Contact w/other who traveled: No Recent Hopitalizations: No Recent Infectious Disease Expo: No Immunizations Up To Date Tetanus Booster (TDap): Unknown Pediatric: No Seasonal Allergies Seasonal Allergies: No Past Medical History Currently Using CPAP: No Currently Using BIPAP: No Musculoskeletal: Arthritis HEENT: Tonsilitis Hearing Impairment: Hard of Hearing Psychosocial: Anxiety History of Blood Disorders: No Family History Cardiovascular disease 19 MOTHER Review of Systems Constitutional: see HPI EENTM: no symptoms reported Respiratory: see HPI, cough, dyspnea on exertion, orthopnea, short of breath Cardiovascular: no symptoms reported Gastrointestinal: no symptoms reported Genitourinary: no symptoms reported Musculoskeletal: no symptoms reported Skin: no symptoms reported Psychiatric/Neurological: No Symptoms Reported Physical Exam Physical Exam Vital Signs Vital Signs - First Documented 05/26/18 05/26/18 05/27/18 16:45 21:33 01:30 Temp 97.1 Pulse 122 Resp 20 B/P (MAP) 147/94 (111) Pulse Ox 98 O2 Delivery Room Air O2 Flow Rate 2.00 Capillary Refill : Less Than 3 Seconds Height, Weight, BMI Height: 5'6.00" Weight: 161lbs. 4.0oz. 73.001702ca; 25.2 BMI Method:Stated General Appearance: No Apparent Distress Eyes: Bilateral Eye Normal Inspection HEENT: Normal ENT Inspection Neck: Normal Inspection Respiratory: Lungs Clear, Decreased Breath Sounds, Other (exam is post chest tube replacement. 3600 MLS of shelly fluid were obtained.) Cardiovascular: Regular Rate, Rhythm, No Edema, No Gallop, No JVD, No Murmur, Normal Peripheral Pulses Gastrointestinal: Normal Bowel Sounds Back: Normal Inspection Extremity: Normal Capillary Refill Neurologic/Psychiatric: Alert, Oriented x3, No Motor/Sensory Deficits, Normal Mood/Affect Skin: Normal Color, Warm/Dry Lymphatic: No Adenopathy Results Results/Procedures Labs Laboratory Tests 05/26/18 18:45 05/27/18 03:10 Patient resulted labs reviewed. Assessment/Plan Admission Diagnosis Large pleural effusion left chest. 2.concern for underlying malignancy. Admission Status: Inpatient Order (span 2 midnights) Reason for Inpatient Admission: Drainage and treatment of pleural effusion/possible pneumonia guaranteed to take longer than to midnight Assessment and Plan Thoracentesis Clinical Quality Measures DVT/VTE Risk/Contraindication: Risk Factor Score Per Nursin RFS Level Per Nursing on Admit: 4+=Very High ABA MACKENZIE MD May 27, 2018 16:27
[2018-05-27] MEDS ORDERED: cefTRIAXone 1 GM/NS 50 ML IVPB IV SCH ×2 (18:30)
[2018-05-28] VITALS (23 sets, daily range): BP systolic 97–163; BP diastolic 66–115
[2018-05-28] MEDS: morphine INJ 4 MG/ML 1 ML (VIAL/SYRINGE) IVP PRN ×7 (00:55→21:50)
[2018-05-28] MEDS: niCARdipine IV 50 MG in NS (IVPB) 230 ML IV SCH ×3 (01:45→21:50)
[2018-05-28] MEDS: RT-ALBUTEROL/IPRATROPIUM 3 ML (DUONEB) VIAL INH SCH ×6 (03:12→21:46)
[2018-05-28] MEDS: NS W/KCL 20 MEQ/L 1,000 ML IV SCH (03:37)
[2018-05-28 03:44] LABS: BASOPHILS % (AUTO) 0 % (0-10); EOSINOPHILS % (AUTO) 0 % (0-10); HEMATOCRIT 43 % (40-54); HEMOGLOBIN 14.6 G/DL (13.3-17.7); LYMPHOCYTES # (AUTO) 1.5 X 10^3 (1.0-4.0); LYMPHOCYTES % (AUTO) 12 % (12-44); MEAN CORPUSCULAR HEMOGLOBIN 32 PG (25-34); MEAN CORPUSCULAR HGB CONC 34 G/DL (32-36); MEAN CORPUSCULAR VOLUME 92 FL (80-99); MEAN PLATELET VOLUME 9.1 FL (7.4-10.4); MONOCYTES # (AUTO) 1.4 X 10^3 (0.0-1.0); MONOCYTES % (AUTO) 11 % (0-12); NEUTROPHILS # (AUTO) 9.6 X 10^3 (1.8-7.8); NEUTROPHILS % (AUTO) 77 % (42-75); PLATELET COUNT 189 10^3/uL (130-400); RED CELL DISTRIBUTION WIDTH 12.3 % (10.0-14.5); WHITE BLOOD COUNT 12.5 10^3/uL (4.3-11.0)
[2018-05-28 04:03] LABS: BUN/CREATININE RATIO 10; CALCIUM 8.3 MG/DL (8.5-10.1); CARBON DIOXIDE 20 MMOL/L (21-32); CHLORIDE 103 MMOL/L (98-107); CREATININE SERUM 0.69 MG/DL (0.60-1.30); GFR ESTIMATED > 60; GLUCOSE 106 MG/DL (70-105); MAGNESIUM 1.7 MG/DL (1.8-2.4); POTASSIUM 4.5 MMOL/L (3.6-5.0); SODIUM 132 MMOL/L (135-145)
[2018-05-28] MEDS: KCL 20 MEQ TAB (K-DUR) PO SCH (05:00)
[2018-05-28] MEDS: POTASSIUM CL 10MEQ/50ML IVPB 50 ML IV SCH (05:00)
[2018-05-28] MEDS: MAGNESIUM 1 GM/100 ML IVPB 100 ML IV SCH ×3 (05:02→06:55)
[2018-05-28] MEDS ORDERED: FUROSEMIDE 40 MG/4 ML INJ (LASIX) IVP ONE (05:45)
[2018-05-28] MEDS ORDERED: KCL 10 MEQ TAB (MICRO K) PO ONE (05:45)
--- NOTE | 2018-05-28 05:45 | Pulmonary Progress Note ---
Subjective Time Seen by a Provider: 05:50 Subjective/Events-last exam pt is doing better since chest tube placement. Sepsis Event Evaluation Height, Weight, BMI Height: 5'6.00" Weight: 161lbs. 4.0oz. 73.803303oy; 25.2 BMI Method:Stated Focused Exam Lactate Level 05/26/18 18:45: Lactic Acid Level 2.52*H 05/26/18 21:03: Lactic Acid Level 2.54*H Exam Exam Vital Signs Date Time Temp Pulse Resp B/P (MAP) Pulse Ox O2 Delivery O2 Flow Rate FiO2 05/28/18 04:00 Nasal Cannula 2.00 05/28/18 04:00 112 18 140/87 (104) 95 Nasal Cannula 1.00 05/28/18 03:12 93 Room Air 05/28/18 03:00 105 18 153/83 (106) 93 Nasal Cannula 1.00 05/28/18 02:00 106 16 156/89 (111) 95 Nasal Cannula 1.00 05/28/18 01:00 111 05/28/18 01:00 111 22 150/86 (107) 97 Nasal Cannula 1.00 05/28/18 00:55 98.8 Room Air 05/28/18 00:00 Nasal Cannula 2.00 05/28/18 00:00 105 19 145/75 (98) 97 Nasal Cannula 1.00 05/27/18 23:00 109 19 123/73 (90) 96 Nasal Cannula 1.00 05/27/18 22:00 112 20 127/90 (102) 94 Nasal Cannula 1.00 05/27/18 21:43 110 17 123/90 (101) 98 Nasal Cannula 1.00 05/27/18 21:00 107 20 124/73 (90) 97 Nasal Cannula 2.00 05/27/18 20:49 98 Nasal Cannula 2.00 05/27/18 20:00 Nasal Cannula 2.00 05/27/18 20:00 116 20 126/79 (95) 99 Nasal Cannula 2.00 05/27/18 19:59 98.8 115 18 130/95 (107) 97 Nasal Cannula 2.00 05/27/18 19:00 102 05/27/18 19:00 102 18 158/90 (112) 100 Nasal Cannula 3.00 05/27/18 18:00 104 19 110/56 (74) 99 Nasal Cannula 3.00 05/27/18 17:00 108 22 108/74 (85) 91 Nasal Cannula 3.00 05/27/18 16:40 97.4 05/27/18 16:38 Nasal Cannula 3.00 05/27/18 16:00 106 23 149/83 (105) 99 Nasal Cannula 3.00 05/27/18 15:00 106 20 144/87 (106) 98 Nasal Cannula 3.00 05/27/18 14:00 102 18 111/78 (89) 96 Nasal Cannula 3.00 05/27/18 13:35 97 Nasal Cannula 2.00 05/27/18 13:00 107 23 143/86 (105) 97 Nasal Cannula 3.00 05/27/18 13:00 106 05/27/18 12:00 112 24 96 Nasal Cannula 3.00 05/27/18 12:00 Nasal Cannula 3.00 05/27/18 11:50 96.6 05/27/18 11:00 109 25 143/99 (114) 98 Nasal Cannula 3.00 05/27/18 10:00 105 135/88 (104) 100 Nasal Cannula 3.00 05/27/18 09:35 96 Nasal Cannula 2.00 05/27/18 09:00 101 19 151/99 (116) 100 OxyMask 6.00 05/27/18 08:53 95.7 05/27/18 08:15 OxyMask 6.00 05/27/18 08:00 OxyMask 15.00 05/27/18 08:00 109 12 100 OxyMask 6.00 05/27/18 07:06 106 95 05/27/18 07:00 98 05/27/18 07:00 98 12 92/59 (70) 99 OxyMask 5.00 05/27/18 06:00 OxyMask 5.00 05/27/18 06:00 106 14 205/114 (144) 95 Nasal Cannula 2.00 I & O 05/28/18 07:00 Intake Total 6790 ml Output Total 2195 ml Balance 4595 ml Height & Weight Height: 5'6.00" Weight: 161lbs. 4.0oz. 73.840725jj; 25.2 BMI Method:Stated General Appearance: No Apparent Distress HEENT: Normal ENT Inspection Neck: Normal Inspection Respiratory: Lungs Clear, Decreased Breath Sounds, Other (exam is post chest tube replacement. 3600 MLS of shelly fluid were obtained.) Cardiovascular: Regular Rate, Rhythm, No Edema, No Gallop, No JVD, No Murmur, Normal Peripheral Pulses Capillary Refill: Less Than 3 Seconds Gastrointestinal: normal bowel sounds, non tender, soft Extremity: Normal Capillary Refill Neurologic/Psychiatric: Alert, Oriented x3, No Motor/Sensory Deficits, Normal Mood/Affect Skin: Normal Color, Warm/Dry Lymphatic: No Adenopathy Results Lab Laboratory Tests 05/26/18 18:45 05/27/18 03:10 05/28/18 03:15 Assessment/Plan Assessment/Plan S/P large left pleural effusion with opacification of left lung and mass/ compression effect r/o cancer -S/P chest tube -Will consider doing Talc pleurodesis before pulling chest tube. -Will do CT of chest today r/o Mass Metabolic acidosis - improved -Monitor -IVF HTN urgency- resolved since chest tube placement Hyponatremia - possibly SIADH from cancer tobacco use/marijuana use -education I explained to patient in detail his current condition of large left pleural effusion. He is agreeable to chest tube/thoracentesis. TYLER PAINTING DO May 28, 2018 05:45
[2018-05-28] MEDS ORDERED: FUROSEMIDE 40 MG/4 ML INJ (LASIX) ONE (05:50)
[2018-05-28] MEDS: PIPERACILLIN SODIUM/TAZOBACTAM 4.5 GM in NS (IVPB) 100 ML IV SCH ×3 (06:56→21:50)
[2018-05-28] MEDS: AZITHROMYCIN 250 MG TAB (ZITHROMAX) PO SCH (08:00)
[2018-05-28] MEDS: THIAMINE 100 MG (VITAMIN B-1) TAB PO SCH (08:00)
[2018-05-28] MEDS: NICOTINE 14 MG (NICODERM) PATCH TD SCH (08:00)
[2018-05-28] MEDS: MULTIVIT W/MINERALS TAB (THERAGRAN M) PO SCH (08:00)
[2018-05-28] MEDS: FOLIC ACID 1 MG TAB PO SCH (08:00)
[2018-05-28] MEDS: guaiFENesin/CODEINE (ROBITUSSIN AC) 10ML UDC PO PRN ×2 (08:01→16:38)
[2018-05-28] MEDS ORDERED: KCL 10 MEQ TAB (MICRO K) PO NR (08:05)
--- NOTE | 2018-05-28 08:21 | Diagnostic Imaging Report ---
INDICATION: Pleural effusion and chest tube placement. Time of exam: 3:25 AM Correlation is made with prior study of one day earlier. Chest tube overlies the left base. No significant pleural fluid is seen. No pneumothorax is identified. Infiltrate throughout the left lung persists. There is subcutaneous emphysema along the left chest wall. Right lung is clear of acute infiltrates. There is calcified granuloma in the right base. IMPRESSION: Overall, stable chest when compared with prior chest radiograph from one day earlier. Dictated by: Dictated on workstation # [id number]
[2018-05-28] MEDS ORDERED: NS 250 ML (IVPB) BAG IV ONE (09:00)
[2018-05-28] MEDS ORDERED: IOHEXOL 350 MG/ML 100 ML (OMNIPAQUE 350) VIAL IV ONE (09:00)
[2018-05-28] MEDS ORDERED: RECEIVED CONTRAST (Hold Metformin) IV SCH (09:30)
--- NOTE | 2018-05-28 09:50 | Diagnostic Imaging Report ---
PROCEDURE: CT chest with contrast only. TECHNIQUE: Multiple contiguous axial images were obtained through the chest after administration of intravenous contrast. INDICATION: Pneumothorax status post thoracentesis. COMPARISON: Multiple recent chest radiographs. FINDINGS: Indwelling large bore chest tube is identified within the left pleural base. Tip and side port appeared to be appropriately positioned within the pleural space. There is mild left-sided hydropneumothorax. Note is also made of extensive patchy and confluent mixed interstitial and alveolar densities throughout the left upper and left lower lobes. Note is also made of mild groundglass densities within the right upper lobe. Small right effusion is also present. There is no pneumothorax on the right. Note is also made of subpleural bulla formation within the right apex. There is calcified granuloma within the right lower lobe. A small nodular micronodule may be obscured on the right, but no distinct focal pulmonary parenchymal mass is identified on the right. Cardiomediastinal structures show normal heart size. There is no large pericardial effusion. There is kahavuxw-km-qdjxb calcified coronary atherosclerosis. Indwelling stents may be present as well. Evaluation is obscured by motion artifact. Mild calcified aortic atherosclerotic disease is also noted. No abnormal mediastinal, hilar, or axillary adenopathy is seen. Soft tissue structures show moderate soft tissue emphysema over the left chest. Bony structures show no lytic or blastic lesions. No acute osseous abnormalities identified. Included portions of the upper abdomen are unremarkable as well. IMPRESSION: 1. Indwelling large bore left-sided chest tube is identified and appears to be in appropriate position. 2. Mild left-sided hydropneumothorax. 3. Diffuse pneumonia type infiltrates throughout the left lung. Continued followup with serial chest radiographs is recommended. 4. Mild groundglass density within the right upper lobe also concerning for pneumonia. 5. Small right pleural effusion. Dictated by: Dictated on workstation # [id number]
--- NOTE | 2018-05-28 10:46 | Progress Note-Hospitalist ---
Subjective HPI/CC On Admission Date Seen by Provider: May 28, 2018 Time Seen by Provider: 10:00 The patient is a 62-year-old white male who presented to the emergency room last night with complaints of shortness of breath. The patient reported that he had begun to note shortness of breath about 2 months ago and it has steadily gotten worse. He had at least 2 contacts with walk-in clinics and oral antibiotics were prescribed. This did not seem to help. He denied fever or chills. He stopped smoking during this period of time. He reports that he had about a 97-sqoe-fffa smoking history to that point. Workup in the emergency room showed a total whiteout of the left lung field with deviation of the trachea to the right. The air bronchogram showed at least patency of the very proximal portion of the left mainstem bronchus. He has no past history of heart disease. Subjective/Events-last exam Patient tolerated CT chest well Chest tube in place on the left Pleural effusion was bloody Denies any current pain Nurse is asking for scheduled Ativan Lost his appetite and does not want to eat Feels like he is not going to get out of the hospital alive Focused Exam Lactate Level 05/26/18 18:45: Lactic Acid Level 2.52*H 05/26/18 21:03: Lactic Acid Level 2.54*H 05/28/18 05:55: Lactic Acid Level 1.95 Objective Exam Vital Signs Vital Signs Date Time Temp Pulse Resp B/P (MAP) Pulse Ox O2 Delivery O2 Flow Rate FiO2 05/28/18 12:10 Room Air 05/28/18 11:09 97.2 05/28/18 10:33 95 05/28/18 09:00 110 11 114/77 (89) 05/28/18 04:00 2.00 Capillary Refill : Less Than 3 Seconds General Appearance: No Apparent Distress, WD/WN, Chronically ill Respiratory: Chest Non Tender, Normal Breath Sounds, No Accessory Muscle Use, No Respiratory Distress, Decreased Breath Sounds, Wheezing Cardiovascular: Regular Rate, Rhythm, No Edema, No Gallop, No JVD, No Murmur, Normal Peripheral Pulses Neurologic/Psychiatric: Alert, Oriented x3, No Motor/Sensory Deficits, Normal Mood/Affect Results/Procedures Lab Laboratory Tests 05/28/18 03:15 Patient resulted labs reviewed. Assessment/Plan Assessment and Plan Assess & Plan/Chief Complaint Assessment: Left sided pleural effusion Left sided pneumonia Bloody pleural effusion s/p chest tube placement ETOHism Plan: Chest tube maintained Monitor closely Diagnosis/Problems Diagnosis/Problems (1) Sepsis Status: Acute Qualifiers: Sepsis type: sepsis due to unspecified organism Qualified Codes: A41.9 - Sepsis, unspecified organism (2) Pneumonia Status: Acute Qualifiers: Pneumonia type: due to unspecified organism Laterality: left Lung location: unspecified part of lung Qualified Codes: J18.9 - Pneumonia, unspecified organism (3) Alcoholism Status: Chronic (4) Alcohol abuse Status: Chronic (5) Pleural effusion associated with pulmonary infection Status: Acute (6) Hyponatremia Status: Acute (7) Hypertension Status: Acute Qualifiers: Hypertension type: unspecified Qualified Codes: I10 - Essential (primary) hypertension Clinical Quality Measures DVT/VTE Risk/Contraindication: Risk Factor Score Per Nursin RFS Level Per Nursing on Admit: 4+=Very High JEANETTE DUNN DO May 28, 2018 10:46
[2018-05-28] MEDS: LORazepam 0.5 MG (ATIVAN) TABLET PO SCH ×2 (13:16→21:50)
[2018-05-29] VITALS (25 sets, daily range): BP systolic 124–198; BP diastolic 77–106
[2018-05-29] MEDS: morphine INJ 4 MG/ML 1 ML (VIAL/SYRINGE) IVP PRN ×6 (01:33→21:48)
[2018-05-29] MEDS: RT-ALBUTEROL/IPRATROPIUM 3 ML (DUONEB) VIAL INH SCH ×6 (01:58→22:15)
[2018-05-29 03:33] LABS: BASOPHILS % (AUTO) 0 % (0-10); EOSINOPHILS % (AUTO) 0 % (0-10); HEMATOCRIT 43 % (40-54); HEMOGLOBIN 15.2 G/DL (13.3-17.7); LYMPHOCYTES # (AUTO) 0.9 X 10^3 (1.0-4.0); LYMPHOCYTES % (AUTO) 8 % (12-44); MEAN CORPUSCULAR HEMOGLOBIN 32 PG (25-34); MEAN CORPUSCULAR HGB CONC 35 G/DL (32-36); MEAN CORPUSCULAR VOLUME 92 FL (80-99); MEAN PLATELET VOLUME 8.9 FL (7.4-10.4); MONOCYTES # (AUTO) 1.4 X 10^3 (0.0-1.0); MONOCYTES % (AUTO) 13 % (0-12); NEUTROPHILS % (AUTO) 79 % (42-75); PLATELET COUNT 208 10^3/uL (130-400); RED BLOOD COUNT 4.73 10^6/uL (4.35-5.85); RED CELL DISTRIBUTION WIDTH 12.7 % (10.0-14.5); WHITE BLOOD COUNT 11.3 10^3/uL (4.3-11.0)
[2018-05-29 03:51] LABS: BUN/CREATININE RATIO 7; CARBON DIOXIDE 23 MMOL/L (21-32); CHLORIDE 95 MMOL/L (98-107); CREATININE SERUM 0.82 MG/DL (0.60-1.30); GFR ESTIMATED > 60; GLUCOSE 138 MG/DL (70-105); POTASSIUM 4.2 MMOL/L (3.6-5.0); SODIUM 130 MMOL/L (135-145)
--- NOTE | 2018-05-29 05:38 | Pulmonary Progress Note ---
Subjective Time Seen by a Provider: 05:39 Subjective/Events-last exam Pt states he is not passing gas. He has poor appetite. Sepsis Event Evaluation Height, Weight, BMI Height: 5'6.00" Weight: 155lbs. 4.0oz. 70.059093uc; 25.2 BMI Method:Stated Focused Exam Lactate Level 05/26/18 18:45: Lactic Acid Level 2.52*H 05/26/18 21:03: Lactic Acid Level 2.54*H 05/28/18 05:55: Lactic Acid Level 1.95 Exam Exam Vital Signs Date Time Temp Pulse Resp B/P (MAP) Pulse Ox O2 Delivery O2 Flow Rate FiO2 05/29/18 04:00 117 26 152/91 (111) 92 Room Air 05/29/18 03:00 118 16 124/77 (93) 93 Room Air 05/29/18 02:00 120 16 171/86 (114) 98 Room Air 05/29/18 01:58 93 Room Air 05/29/18 01:00 116 05/29/18 01:00 116 16 132/81 (98) 93 Room Air 05/29/18 00:00 Room Air 05/29/18 00:00 117 22 145/84 (104) 93 Room Air 05/28/18 23:00 121 20 132/80 (97) 94 Room Air 05/28/18 22:00 120 20 159/99 (119) 92 Room Air 05/28/18 21:49 91 Room Air 05/28/18 21:00 115 14 153/115 (128) 92 Room Air 05/28/18 20:00 108 11 121/93 (102) 95 Room Air 05/28/18 20:00 Room Air 05/28/18 19:00 112 05/28/18 19:00 112 14 163/88 (113) 92 Room Air 05/28/18 18:00 111 11 98 Room Air 05/28/18 17:59 94 Room Air 05/28/18 17:00 122 19 135/80 (98) 92 Room Air 05/28/18 16:00 Room Air 05/28/18 16:00 128 19 97/68 (78) 93 Room Air 05/28/18 15:52 97.6 05/28/18 15:00 116 16 130/73 (92) 89 Room Air 05/28/18 14:43 97 Room Air 05/28/18 14:00 108 16 153/78 (103) 97 Room Air 05/28/18 13:00 105 05/28/18 13:00 105 14 122/74 (90) 94 Room Air 05/28/18 12:10 Room Air 05/28/18 12:00 107 13 133/73 (93) 94 Room Air 05/28/18 11:09 97.2 05/28/18 11:00 108 13 121/72 (88) 95 Room Air 05/28/18 10:33 95 Room Air 05/28/18 10:00 107 12 120/77 (91) 93 Room Air 05/28/18 09:00 110 11 114/77 (89) 92 Room Air 05/28/18 08:00 Room Air 05/28/18 08:00 122 22 162/66 (98) 91 Room Air 05/28/18 07:00 97.6 116 19 162/66 (98) 95 Room Air 05/28/18 07:00 106 16 141/74 (96) 92 Room Air 05/28/18 07:00 106 05/28/18 07:00 97 Room Air 05/28/18 06:00 110 17 149/88 (108) 93 Room Air I & O 05/29/18 07:00 Intake Total 2430 ml Output Total 3725 ml Balance -1295 ml Height & Weight Height: 5'6.00" Weight: 155lbs. 4.0oz. 70.003027gz; 25.2 BMI Method:Stated General Appearance: No Apparent Distress, WD/WN, Chronically ill HEENT: Normal ENT Inspection Neck: Normal Inspection Respiratory: Chest Non Tender, Normal Breath Sounds, No Accessory Muscle Use, No Respiratory Distress, Decreased Breath Sounds, Wheezing Cardiovascular: Regular Rate, Rhythm, No Edema, No Gallop, No JVD, No Murmur, Normal Peripheral Pulses Capillary Refill: Less Than 3 Seconds Gastrointestinal: normal bowel sounds, non tender, soft Extremity: Normal Capillary Refill Neurologic/Psychiatric: Alert, Oriented x3, No Motor/Sensory Deficits, Normal Mood/Affect Skin: Normal Color, Warm/Dry Lymphatic: No Adenopathy Results Lab Laboratory Tests 05/28/18 03:15 05/29/18 03:20 Assessment/Plan Assessment/Plan S/P large left pleural effusion with opacification of left lung and mass/ compression effect r/o cancer -S/P chest tube -Will consider doing Talc pleurodesis before pulling chest tube. -CT scan of chest reviewed no mass noted -Cytology from pleural fluid is pending -check echocardiogram -will give 40mg of Lasix IV x 1 pneumothorax - possibly from air sucking in from around chest tube -I will be out of town over the next few days. I will consult surgery for chest tube management. Ileus vs SBO -start colace, and lactulose hyponatremia - possibley SIADH Pneumonia - present from admission -Continue zosyn, azithromycin Metabolic acidosis - improved -Monitor -IVF HTN urgency- resolved since chest tube placement Hyponatremia - possibly SIADH from cancer tobacco use/marijuana use -education TYLER PAINTING DO May 29, 2018 05:38
[2018-05-29] MEDS ORDERED: FUROSEMIDE 40 MG/4 ML INJ (LASIX) IVP ONE (05:45)
[2018-05-29] MEDS: PIPERACILLIN SODIUM/TAZOBACTAM 4.5 GM in NS (IVPB) 100 ML IV SCH ×3 (06:43→20:35)
--- NOTE | 2018-05-29 06:50 | Diagnostic Imaging Report ---
INDICATION: Pleural effusion. Chest tube placement. COMPARISON: 05/28/2018 FINDINGS: Single frontal radiographic view of the chest was obtained and again demonstrates indwelling large bore chest tube within the base of the left chest. There are persistent patchy infiltrates on the left, but overall aeration has improved. No large effusion or pneumothorax is seen on either side. There is mild overlying soft tissue emphysema. Cardiac silhouette and pulmonary vasculature stable. Bony structures are stable as well. IMPRESSION: 1. Interval improved aeration on the left. Continued followup is recommended. 2. Indwelling left-sided chest tube. No large pleural effusion or pneumothorax. Dictated by: Dictated on workstation # [id number]
[2018-05-29] MEDS ORDERED: FUROSEMIDE 40 MG/4 ML INJ (LASIX) IVP NR (07:45)
[2018-05-29] MEDS ORDERED: KCL 10 MEQ TAB (MICRO K) PO NR (07:45)
[2018-05-29] MEDS: KCL 20 MEQ TAB (K-DUR) PO SCH (07:58)
[2018-05-29] MEDS: POTASSIUM CL 10MEQ/50ML IVPB 50 ML IV SCH (07:58)
[2018-05-29] MEDS: MAGNESIUM 1 GM/100 ML IVPB 100 ML IV SCH (07:58)
[2018-05-29] MEDS: LORazepam 0.5 MG (ATIVAN) TABLET PO SCH ×3 (09:10→20:34)
[2018-05-29] MEDS: DOCUSATE SODIUM 100 MG (COLACE) CAP PO SCH ×2 (09:10→20:34)
[2018-05-29] MEDS: FOLIC ACID 1 MG TAB PO SCH (09:10)
[2018-05-29] MEDS: AZITHROMYCIN 250 MG TAB (ZITHROMAX) PO SCH (09:11)
[2018-05-29] MEDS: LACTULOSE SYRUP 10GM/15ML (ENULOSE) 30ML UDC PO SCH ×2 (09:12→20:34)
[2018-05-29] MEDS: NICOTINE 14 MG (NICODERM) PATCH TD SCH (09:13)
[2018-05-29] MEDS: THIAMINE 100 MG (VITAMIN B-1) TAB PO SCH (09:27)
[2018-05-29] MEDS: niCARdipine IV 50 MG in NS (IVPB) 230 ML IV SCH ×2 (09:28→16:12)
[2018-05-29] MEDS: MULTIVIT W/MINERALS TAB (THERAGRAN M) PO SCH (09:28)
[2018-05-29] MEDS: CALCIUM CARBONATE 500 MG (TUMS) TAB.CHEW PO PRN (11:37)
--- NOTE | 2018-05-29 11:41 | Progress Note-Hospitalist ---
Subjective HPI/CC On Admission Date Seen by Provider: May 29, 2018 Time Seen by Provider: 10:15 The patient is a 62-year-old white male who presented to the emergency room last night with complaints of shortness of breath. The patient reported that he had begun to note shortness of breath about 2 months ago and it has steadily gotten worse. He had at least 2 contacts with walk-in clinics and oral antibiotics were prescribed. This did not seem to help. He denied fever or chills. He stopped smoking during this period of time. He reports that he had about a [id number] smoking history to that point. Workup in the emergency room showed a total whiteout of the left lung field with deviation of the trachea to the right. The air bronchogram showed at least patency of the very proximal portion of the left mainstem bronchus. He has no past history of heart disease. Subjective/Events-last exam Patient very depressed considering all of the results are pointing to some sort of cancer diagnosis No BM since before admission so he was given medication and having abdominal cramping now Mottled appearance of his knees which appears to be some sort of normal variant for the patient there is no cool to touch assessment of the knee and the right knee looks similar Checked meds and labs Dr Worthy consulted for chest tube issues Review of Systems General: Fatigue Gastrointestinal: Abdominal Pain Focused Exam Lactate Level 05/26/18 18:45: Lactic Acid Level 2.52*H 05/26/18 21:03: Lactic Acid Level 2.54*H 05/28/18 05:55: Lactic Acid Level 1.95 Objective Exam Vital Signs Vital Signs Date Time Temp Pulse Resp B/P (MAP) Pulse Ox O2 Delivery O2 Flow Rate FiO2 05/29/18 11:00 118 38 187/104 (131) 91 Room Air 05/29/18 08:30 98.0 05/28/18 04:00 2.00 Capillary Refill : Less Than 3 Seconds General Appearance: No Apparent Distress, WD/WN, Chronically ill Respiratory: No Accessory Muscle Use, No Respiratory Distress, Crackles, Decreased Breath Sounds, Wheezing Cardiovascular: Regular Rate, Rhythm, No Edema, No Gallop, No JVD, No Murmur, Normal Peripheral Pulses Neurologic/Psychiatric: Alert, Oriented x3, No Motor/Sensory Deficits, Depressed Affect Results/Procedures Lab Laboratory Tests 05/29/18 03:20 Patient resulted labs reviewed. Assessment/Plan Assessment and Plan Assess & Plan/Chief Complaint Assessment: Left sided pleural effusion Left sided pneumonia Bloody pleural effusion s/p chest tube placement ETOHism Plan: Chest tube maintained Monitor closely Poor prognosis Diagnosis/Problems Diagnosis/Problems (1) Sepsis Status: Resolved Qualifiers: Sepsis type: sepsis due to unspecified organism Qualified Codes: A41.9 - Sepsis, unspecified organism (2) Pneumonia Status: Acute Qualifiers: Pneumonia type: due to unspecified organism Laterality: left Lung location: unspecified part of lung Qualified Codes: J18.9 - Pneumonia, unspecified organism (3) Alcoholism Status: Chronic (4) Alcohol abuse Status: Chronic (5) Pleural effusion associated with pulmonary infection Status: Acute (6) Hyponatremia Status: Acute (7) Hypertension Status: Acute Qualifiers: Hypertension type: unspecified Qualified Codes: I10 - Essential (primary) hypertension (8) S/P chest tube placement Status: Acute Clinical Quality Measures DVT/VTE Risk/Contraindication: Risk Factor Score Per Nursin RFS Level Per Nursing on Admit: 4+=Very High JEANETTE DUNN DO May 29, 2018 11:41
[2018-05-30] VITALS (23 sets, daily range): BP systolic 134–218; BP diastolic 80–120
[2018-05-30] MEDS: morphine INJ 4 MG/ML 1 ML (VIAL/SYRINGE) IVP PRN ×8 (01:48→23:42)
[2018-05-30] MEDS: RT-ALBUTEROL/IPRATROPIUM 3 ML (DUONEB) VIAL INH SCH ×6 (02:05→22:23)
[2018-05-30 03:14] LABS: BASOPHILS % (AUTO) 0 % (0-10); EOSINOPHILS % (AUTO) 0 % (0-10); HEMATOCRIT 44 % (40-54); HEMOGLOBIN 15.1 G/DL (13.3-17.7); LYMPHOCYTES # (AUTO) 1.2 X 10^3 (1.0-4.0); LYMPHOCYTES % (AUTO) 9 % (12-44); MEAN CORPUSCULAR HEMOGLOBIN 32 PG (25-34); MEAN CORPUSCULAR HGB CONC 35 G/DL (32-36); MEAN CORPUSCULAR VOLUME 91 FL (80-99); MEAN PLATELET VOLUME 8.8 FL (7.4-10.4); MONOCYTES # (AUTO) 1.6 X 10^3 (0.0-1.0); MONOCYTES % (AUTO) 13 % (0-12); NEUTROPHILS # (AUTO) 10.1 X 10^3 (1.8-7.8); NEUTROPHILS % (AUTO) 78 % (42-75); PLATELET COUNT 211 10^3/uL (130-400); RED BLOOD COUNT 4.77 10^6/uL (4.35-5.85); RED CELL DISTRIBUTION WIDTH 12.4 % (10.0-14.5)
[2018-05-30 03:32] LABS: BUN/CREATININE RATIO 10; CALCIUM 9.3 MG/DL (8.5-10.1); CARBON DIOXIDE 22 MMOL/L (21-32); CHLORIDE 91 MMOL/L (98-107); GFR ESTIMATED > 60; GLUCOSE 127 MG/DL (70-105); MAGNESIUM 1.9 MG/DL (1.8-2.4); PHOSPHORUS 3.7 MG/DL (2.3-4.7); SODIUM 128 MMOL/L (135-145)
[2018-05-30] MEDS ORDERED: hydrALAZINE (APESOLINE) 20 MG/ML VIAL ONE (03:56)
[2018-05-30] MEDS ORDERED: meTOprolol 5 MG/5 ML (LOPRESSOR) VIAL ONE (03:57)
[2018-05-30] MEDS ORDERED: meTOprolol 5 MG/5 ML (LOPRESSOR) VIAL IV ONE (05:15)
[2018-05-30] MEDS ORDERED: hydrALAZINE (APESOLINE) 20 MG/ML VIAL IV ONE (05:15)
[2018-05-30] MEDS: PIPERACILLIN SODIUM/TAZOBACTAM 4.5 GM in NS (IVPB) 100 ML IV SCH ×2 (06:27→13:30)
[2018-05-30] MEDS ORDERED: RT-ALBUTEROL/IPRATROPIUM 3 ML (DUONEB) VIAL INH PRN (07:00)
--- NOTE | 2018-05-30 07:34 | Diagnostic Imaging Report ---
Indication: Dyspnea. Comparison made with prior examination of 05/29/2018 Findings: There is cardiomegaly. There is some venous congestion. There are bibasilar infiltrates, left greater than right. Left thoracostomy tube remains in place. There is no pneumothorax. Mediastinum is unremarkable. There is some subcutaneous emphysema along the left chest wall. Impression: Bibasilar infiltrates, left greater than right. Cardiomegaly and some central pulmonary venous congestion. Dictated by: Dictated on workstation # [id number]
[2018-05-30] MEDS: niCARdipine IV 50 MG in NS (IVPB) 230 ML IV SCH ×3 (08:03→20:46)
[2018-05-30] MEDS: POTASSIUM CL 10MEQ/50ML IVPB 50 ML IV SCH (08:04)
[2018-05-30] MEDS: KCL 20 MEQ TAB (K-DUR) PO SCH (08:05)
[2018-05-30] MEDS: MAGNESIUM 1 GM/100 ML IVPB 100 ML IV SCH (08:05)
[2018-05-30] MEDS: LORazepam 0.5 MG (ATIVAN) TABLET PO SCH ×2 (08:20→13:24)
[2018-05-30] MEDS: AZITHROMYCIN 250 MG TAB (ZITHROMAX) PO SCH (08:20)
[2018-05-30] MEDS: LACTULOSE SYRUP 10GM/15ML (ENULOSE) 30ML UDC PO SCH (08:20)
[2018-05-30] MEDS: FOLIC ACID 1 MG TAB PO SCH (08:20)
[2018-05-30] MEDS: DOCUSATE SODIUM 100 MG (COLACE) CAP PO SCH (08:20)
[2018-05-30] MEDS: MULTIVIT W/MINERALS TAB (THERAGRAN M) PO SCH (08:20)
[2018-05-30] MEDS: NICOTINE 14 MG (NICODERM) PATCH TD SCH (09:59)
--- NOTE | 2018-05-30 11:40 | Progress Note-Hospitalist ---
JEANETTE DUNN DO 05/30/18 1140: Subjective HPI/CC On Admission Date Seen by Provider: May 30, 2018 Time Seen by Provider: 11:00 The patient is a 62-year-old white male who presented to the emergency room last night with complaints of shortness of breath. The patient reported that he had begun to note shortness of breath about 2 months ago and it has steadily gotten worse. He had at least 2 contacts with walk-in clinics and oral antibiotics were prescribed. This did not seem to help. He denied fever or chills. He stopped smoking during this period of time. He reports that he had about a [id number] smoking history to that point. Workup in the emergency room showed a total whiteout of the left lung field with deviation of the trachea to the right. The air bronchogram showed at least patency of the very proximal portion of the left mainstem bronchus. He has no past history of heart disease. Subjective/Events-last exam Patient appears to be declining by the day Ileus is being managed by Dr. Worthy Good bowel sounds are noted No pain is reported except for chest tube site Review of Systems Gastrointestinal: Nausea, Vomiting Focused Exam Lactate Level 05/28/18 05:55: Lactic Acid Level 1.95 Objective Exam Vital Signs Vital Signs Date Time Temp Pulse Resp B/P (MAP) Pulse Ox O2 Delivery O2 Flow Rate FiO2 05/30/18 12:09 91 Nasal Cannula 4.00 05/30/18 12:00 108 18 141/90 (107) 05/30/18 04:00 97.6 Capillary Refill : Less Than 3 Seconds General Appearance: No Apparent Distress, WD/WN, Chronically ill, Thin Respiratory: Chest Non Tender, No Accessory Muscle Use, No Respiratory Distress , Crackles, Decreased Breath Sounds Cardiovascular: Regular Rate, Rhythm, No Edema, No Gallop, No JVD, No Murmur, Normal Peripheral Pulses Neurologic/Psychiatric: Alert, Oriented x3, No Motor/Sensory Deficits, Normal Mood/Affect Results/Procedures Lab Laboratory Tests 05/30/18 03:05 Patient resulted labs reviewed. Assessment/Plan Assessment and Plan Assess & Plan/Chief Complaint Assessment: Left sided pleural effusion Left sided pneumonia Bloody pleural effusion s/p chest tube placement ETOHism Ileus Plan: Chest tube maintained Monitor closely Poor prognosis Pt declining more and more each day regardless of what interventions are made Diagnosis/Problems Diagnosis/Problems (1) Ileus Status: Acute (2) Sepsis Status: Resolved Qualifiers: Sepsis type: sepsis due to unspecified organism Qualified Codes: A41.9 - Sepsis, unspecified organism (3) Pneumonia Status: Acute Qualifiers: Pneumonia type: due to unspecified organism Laterality: left Lung location: unspecified part of lung Qualified Codes: J18.9 - Pneumonia, unspecified organism (4) Alcoholism Status: Chronic (5) Alcohol abuse Status: Chronic (6) Pleural effusion associated with pulmonary infection Status: Acute (7) Hyponatremia Status: Acute (8) Hypertension Status: Acute Qualifiers: Hypertension type: unspecified Qualified Codes: I10 - Essential (primary) hypertension (9) S/P chest tube placement Status: Acute Clinical Quality Measures DVT/VTE Risk/Contraindication: Risk Factor Score Per Nursin RFS Level Per Nursing on Admit: 4+=Very High PATRICK HOPKINS MED STUDENT 05/30/18 1213: Subjective Subjective/Events-last exam Pt. is still exhibiting signs of depression He states that he is not in pain He has not had a bowel movement and his abdomen is very distended He is complaining of significant heartburn Objective Exam General Appearance: No Apparent Distress, WD/WN, Chronically ill Respiratory: Chest Non Tender, Lungs Clear Cardiovascular: Regular Rate, Rhythm, No Edema, No Gallop, No JVD, No Murmur Neurologic/Psychiatric: Alert, Oriented x3, No Motor/Sensory Deficits Skin: Normal Color, Warm/Dry Assessment/Plan Assessment and Plan Assess & Plan/Chief Complaint Assessment: 1) Pleural effusion 2) Pneumonia Plan: 1) Continue to monitor for sepsis 2) Continue to drain pleural fluid JEANETTE DUNN DO May 30, 2018 11:40 PATRICK HOPKINS MED STUDENT May 30, 2018 12:13
--- NOTE | 2018-05-30 11:57 | Diagnostic Imaging Report ---
INDICATION: Abdominal pain. COMPARISON: None available. FINDINGS: There is mild gaseous distention of the small bowel and colon. Partially imaged left-sided chest tube. No evidence of free intraperitoneal air, though assessment is limited on supine imaging. No abnormal soft tissue mineralizations. IMPRESSION: Moderate gaseous distention of the small bowel and colon is likely due to ileus. Dictated by: Dictated on workstation # [id number]
--- NOTE | 2018-05-30 12:01 | Diagnostic Imaging Report ---
INDICATION: Shortness of breath. COMPARISON: 05/29/2018. FINDINGS: Stable left chest tube with left chest wall subcutaneous gas. Left basilar heterogeneous pulmonary opacities are similar. No pneumothorax. Stable cardiomediastinal silhouette. IMPRESSION: Stable exam without adverse development. Dictated by: Dictated on workstation # [id number]
--- NOTE | 2018-05-30 12:27 | Physical Therapy Evaluation ---
PT Evaluation-General Medical Diagnosis Admission Date May 26, 2018 at 20:30 Medical Diagnosis: pleural effusion Onset Date: May 26, 2018 Therapy Diagnosis Therapy Diagnosis: impaired mobility, strength, endurance Height/Weight Height (Feet): 5 Height (Inches): 6.00 Weight (Pounds): 157 Weight (Ounces): 4.0 Precautions Precautions/Isolations: Fall Prevention, Standard Precautions, Pressure Ulcer Referral Physician: Aravind Worthy DO Reason for Referral: Evaluation/Treatment Medical History Pertinent Medical History: Arthritis, Smoking Additional Medical History [place], anxiety Current History came to ER with SOB Reviewed History: Yes Social History Home: Single Level Current Living Status: Entry Into Home: Level Entry patient states that he lives with a roommate. Prior/Core FIM Prior Level of Function Functional Strawberry Measure 0=Not Assessed/NA 4=Minimal Assistance 1=Total Assistance 5=Supervision or Setup 2=Maximal Assistance 6=Modified Strawberry 3=Moderate Assistance 7=Complete IndependenceIRFPAI Quality Coding Scale 6 Independent with activity with or without an assistive device 5 Patient requires set up or clean up by helper. Patient completes activity by themselves 4 Supervision or touching assist (CGA). Wall provide cues , steadying assist 3 The helper provides less than half the effort to complete the activity 2 The helper provides more than half the effort to complete the activity 1 Dependent. The helper does all the effort to complete an activity 7 Patient refused to complete or attempt activity 9 The patient did not perform the activity before the current illness or injury 88 Not attempted due to Medical conditions or safety concerns Bed Mobility: 7 Transfers (B,C,W/C) (FIM): 7 Gait: 7 PT Evaluation-Current Subjective Patient in bed pre tx, agrees to PT, has no complaints of pain at rest but has significant pain when coughing. Patient is very lethargic and seems slightly confused. Pt/Family Goals to be independent at home Objective Patient Orientation: Person, Confused Attachments: Chest Tube, Oxygen, IV ROM/Strength ROM Lower Extremities WNL Strength Lower Extremities 3/5 gross bilateral lower extremities, patient has trouble following MMT directions Neuromuscular (Tone, Coordination, Reflexes) NT Sensory Vision: Functional Hearing: Impaired Sensation Right Lower Extremit: Impaired Sensation Left Lower Extremity: Impaired Sensation Lower Extremities Patient had trouble with sensation testing but appears to possibly have impaired light touch sensation in his lower legs. Transfers Functional Strawberry Measure 0=Not Assessed/NA 4=Minimal Assistance 1=Total Assistance 5=Supervision or Setup 2=Maximal Assistance 6=Modified Strawberry 3=Moderate Assistance 7=Complete Strawberry Transfers (B, C, W/C) (FIM): 4 Scootin Rollin Supine to/from Sit: 4 Sit to/from Stand: 4 bed t/f WC(FIM only if WC use): 4 Patient needs min assist for bed mobility and supine to sit, CGA for sit to stand and transfers. Cues for safety and hand placement. He tries to sit before turning completely. Gait Mode of Locomotion: Walk Anticipated Mode of Locomotion: Walk Gait (FIM): 1 Distance: 3' Gait Level of Assist: 4 Gait Persons Needed: 1 Gait Assistive Device: FWW Comments/Gait Description Patient ambulated 3' to a recliner, steps were slow and uncoordinated, needs cues for safety and positioning. Balance Sitting Static: Fair Sitting Dynamic: Fair Standing Static: Fair Standing Dynamic: Fair Treatment seated exercises x15 (AP, LAQ) Assessment/Needs Patient has impaired mobility, strength, endurance. He is sitting in recliner post tx with nurse call, phone, tray, all needs met. Patient't O2 went down to 88% after ambulating to the chair, came up after a few moments of purse lip breathing. Rehab Potential: Fair PT Short Term Goals Short Term Goals Time Frame: Jun 06, 2018 Transfers (B,C,W/C) (FIM): 5 Gait (FIM): 2 Gait Distance Comment: 50' Gait Level of Assist: 5 Gait Assistive Device: FWW PT Plan Problem List Problem List: Activity Tolerance, Functional Strength, Safety, Balance, Gait, Transfer, Bed Mobility Treatment/Plan Treatment Plan: Continue Plan of Care Treatment Plan: Bed Mobility, Education, Functional Activity Sissy, Functional Strength, Gait, Safety, Therapeutic Exercise, Transfers Treatment Duration: Jun 06, 2018 Frequency: 6 times per week Estimated Hrs Per Day: .25 hour per day (15-30') Patient and/or Family Agrees t: Yes Safety Risks/Education Patient Education: Gait Training, Transfer Techniques, Correct Positioning, Safety Issues Teaching Recipient: Patient Teaching Methods: Demonstration, Discussion Response to Teaching: Reinforcement Needed Discharge Recommendations Plan Patient will perform bed mobility and transfer training, balance and endurance training, functional strengthening, stair training, gait training, and education , to improve functional mobility and independence at home. Therapy D/C Recommendations: Home w/ Family Support Time/GCodes Time In: 1200 Time Out: 1220 Total Billed Treatment Time: 20 Total Billed Treatment 1 visit DEBORA Wolf' NAGI HUTCHISON PT May 30, 2018 12:27
--- NOTE | 2018-05-30 13:13 | Consultation ---
History of Present Illness History of Present Illness Patient Consulted On(maria d/time) 05/29/18 13:06 Date Seen by Provider: May 29, 2018 Time Seen by Provider: 13:06 History of Present Illness Consult requested by Dr. Matute for left pleural effusion status post chest tube placement and ileus Patient is a 62-year-old male who was having shortness of breath was found to have a significant left pleural effusion. Dr. Matute inserted a chest tube and patient with small pneumothorax and air leak is been persistent. Patient subsequent x-ray of chest continued to demonstrate improvement. Patient states it isn't abdomen is a little bit distended from more normally is. He is still passing some flatus. He has early satiety and not having much diet intake. He has no significant abdominal pain just some slight discomfort from the distention. Patient's activity levels very minimal. Patient has been having shortness of breath but feels that it may be getting a little bit better since having the fluid drained off of his left long. He has no other complaints at this time. He denies any nausea vomiting fever sweats chills at this time. Allergies and Home Medications Allergies Coded Allergies: No Known Drug Allergies (Unverified , 05/26/18) Home Medications Guaifenesin/Pseudoephedrne HCl 1 Each Tab.er.12h, 1 TAB PO Q12H PRN for CONGESTION, (Reported) Hydroxyzine HCl 50 Mg Tablet, 50 MG PO HS PRN for SLEEP, (Reported) Patient Home Medication List Home Medication List Reviewed: Yes Past Oejjrdp-Gralrx-Kdcobn Hx Patient Social History Alcohol Use: Regular Use Number of Drinks Today: 0 Recreational Drug Use: No Smoking Status: Current Everyday Smoker Type Used: Cigarettes Recent Foreign Travel: No Contact w/Someone Who Travel: No Recent Infectious Disease Expo: No Recent Hopitalizations: No Physical Abuse Screen: No Sexual Abuse: No Immunizations Up To Date Tetanus Booster (TDap): Unknown PED Vaccines UTD: No Seasonal Allergies Seasonal Allergies: No Surgeries History of Surgeries: No Respiratory History of Respiratory Disorde: Yes Respiratory Disorders: Asthma Cardiovascular History of Cardiac Disorders: Yes Neurological History of Neurological Disord: Yes (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) Genitourinary History of Genitourinary Disor: No Gastrointestinal History of Gastrointestinal Di: No Musculoskeletal History of Musculoskeletal Dis: Yes Musculoskeletal Disorders: Arthritis Endocrine History of Endocrine Disorders: No HEENT History of HEENT Disorders: Yes HEENT Disorders: Tonsilitis Hearing Impairment: Hard of Hearing Cancer History of Cancer: No Psychosocial History of Psychiatric Problem: Yes Behavioral Health Disorders: Anxiety Integumentary History of Skin or Integumenta: No Blood Transfusions History of Blood Disorders: No Family Medical History Significant Family History: No Pertinent Family Hx Family Medial History: Cardiovascular disease 19 MOTHER Review of Systems-General Constitutional: no symptoms reported EENTM: no symptoms reported Respiratory: see HPI, short of breath Cardiovascular: no symptoms reported Gastrointestinal: see HPI Genitourinary: no symptoms reported Musculoskeletal: no symptoms reported Skin: no symptoms reported Psychiatric/Neurological: No Symptoms Reported Physical Exam-General Problems Physical Exam Vital Signs Vital Signs - First Documented 05/26/18 05/26/18 05/27/18 16:45 21:33 01:30 Temp 97.1 Pulse 122 Resp 20 B/P (MAP) 147/94 (111) Pulse Ox 98 O2 Delivery Room Air O2 Flow Rate 2.00 Capillary Refill : Less Than 3 Seconds General Appearance: no apparent distress HEENT: PERRL/EOMI Neck: supple Respiratory: other (Course breath sounds left) Cardiovascular: regular rate, rhythm Gastrointestinal: non tender, soft, distended (Minimal) Rectal: deferred Back: normal inspection Extremities: non-tender, normal inspection Neurologic/Psychiatric: cathode maker II-XII nml as tested, no motor/sensory deficits, alert, normal mood/affect, oriented x 3 Skin: normal color, warm/dry Lymphatic: no adenopathy Data Review Labs Laboratory Tests 05/30/18 03:05: White Blood Count 13.0H, Red Blood Count 4.77, Hemoglobin 15.1, Hematocrit 44, Mean Corpuscular Volume 91, Mean Corpuscular Hemoglobin 32, Mean Corpuscular Hemoglobin Concent 35, Red Cell Distribution Width 12.4, Platelet Count 211, Mean Platelet Volume 8.8, Neutrophils (%) (Auto) 78H, Lymphocytes (%) (Auto) 9L , Monocytes (%) (Auto) 13H, Eosinophils (%) (Auto) 0, Basophils (%) (Auto) 0, Neutrophils # (Auto) 10.1H, Lymphocytes # (Auto) 1.2, Monocytes # (Auto) 1.6H, Eosinophils # (Auto) 0.0, Basophils # (Auto) 0.0, Sodium Level 128L, Potassium Level 4.0, Chloride Level 91L, Carbon Dioxide Level 22, Anion Gap 15H, Blood Urea Nitrogen 8, Creatinine 0.80, Estimat Glomerular Filtration Rate > 60, BUN/ Creatinine Ratio 10, Glucose Level 127H, Calcium Level 9.3, Phosphorus Level 3.7 , Magnesium Level 1.9 Microbiology 05/26/18 Blood Culture - Preliminary, Resulted No growth 05/27/18 Gram Stain - Final, Complete 05/27/18 Body Fluid Culture - Final, Complete No growth 05/29/18 Gram Stain - Final, Resulted 05/29/18 Sputum Culture - Preliminary, Resulted No growth 05/26/18 Urine Culture - Final, Complete NO GROWTH Assessment/Plan Assessment/Plan Assessment/Plan Left pleural effusion and pneumothorax status post left thoracostomy tube placement Ileus Patient 62-year-old male who had thoracostomy tube placed on the left for drainage of large pleural effusion. Small amount of air by x-ray and Pleur- evac was placed on suction. Patient at this time with no air leak and is on suction. It is reported that there was a leak earlier this morning by nursing and Dr. Matute. We'll keep on suction if no air leak in the morning would change to waterseal. And we'll repeat chest x-ray at that time. Patient passing minimal flatus at this time encourage patient to increase activity if can tolerate. Will follow. Clinical Quality Measures DVT/VTE Risk/Contraindication: Risk Factor Score Per Nursin RFS Level Per Nursing on Admit: 4+=Very High GEORGE TINOCO DO May 30, 2018 13:13
--- NOTE | 2018-05-30 13:21 | Progress Note ---
Subjective Date Seen by a Provider: May 30, 2018 Time Seen by a Provider: 08:21 Subjective/Events-last exam Patient states he really has no change from yesterday. He still passing a small amount of flatus. No bowel movement. Patient breathing about the same. Abdomen may be slightly more distended. Patient getting up to chair more but still limited activity. His Pleur-evac is on waterseal at this time and no signs of air leak. Repeat chest x-ray to be done in a few hours. Patient with no appetite and feels little bit nauseous. Denies any fever sweats chills. Focused Exam Lactate Level 05/28/18 05:55: Lactic Acid Level 1.95 Objective Exam Vital Signs Date Time Temp Pulse Resp B/P (MAP) Pulse Ox O2 Delivery O2 Flow Rate FiO2 05/30/18 12:09 91 Nasal Cannula 4.00 05/30/18 12:00 108 18 141/90 (107) 93 Nasal Cannula 2.00 05/30/18 11:00 107 20 134/89 (104) 92 Nasal Cannula 2.00 05/30/18 10:14 95 Nasal Cannula 2.00 05/30/18 10:00 104 17 148/95 (112) 95 Nasal Cannula 2.00 05/30/18 09:00 106 17 146/89 (108) 94 Nasal Cannula 2.00 05/30/18 08:15 91 Nasal Cannula 4.00 05/30/18 08:00 112 23 159/97 (117) 91 Nasal Cannula 2.00 05/30/18 07:00 106 05/30/18 07:00 107 21 143/85 (104) 90 Nasal Cannula 1.00 05/30/18 06:46 100 97 05/30/18 06:46 97 Nasal Cannula 3.00 05/30/18 06:00 98 32 134/80 (98) 98 Nasal Cannula 2.00 05/30/18 05:00 98 21 164/115 (131) Nasal Cannula 2.00 05/30/18 04:00 97.6 05/30/18 04:00 Nasal Cannula 3.00 05/30/18 04:00 112 24 141/94 (110) Nasal Cannula 2.00 05/30/18 03:00 122 21 176/96 (122) 93 Nasal Cannula 3.00 05/30/18 02:06 97 Nasal Cannula 3.00 05/30/18 02:00 115 16 181/114 (136) 93 Nasal Cannula 3.00 05/30/18 01:00 113 05/30/18 01:00 114 21 97 Nasal Cannula 3.00 05/30/18 00:00 Nasal Cannula 3.00 05/30/18 00:00 98.2 05/30/18 00:00 113 11 136/92 (107) 95 Nasal Cannula 3.00 05/29/18 23:00 112 20 155/88 (110) Nasal Cannula 2.00 05/29/18 22:15 95 Nasal Cannula 2.00 05/29/18 22:00 113 18 153/89 (110) Nasal Cannula 2.00 05/29/18 21:04 98.3 05/29/18 21:00 120 21 182/106 (131) 89 Nasal Cannula 2.00 05/29/18 20:00 Nasal Cannula 2.00 05/29/18 20:00 115 33 188/101 (130) 96 Nasal Cannula 2.00 05/29/18 20:00 97.9 05/29/18 19:00 122 05/29/18 19:00 112 17 153/101 (118) 95 Nasal Cannula 2.00 05/29/18 18:19 95 Nasal Cannula 2.00 05/29/18 18:15 171/99 (123) 05/29/18 18:15 111 18 171/99 (123) 97 Nasal Cannula 2.00 05/29/18 18:00 112 34 96 Nasal Cannula 2.00 05/29/18 17:00 112 15 141/92 (108) 95 Nasal Cannula 2.00 05/29/18 16:56 98.3 Nasal Cannula 2.00 05/29/18 16:50 Room Air 05/29/18 16:00 111 14 143/98 (113) 95 Nasal Cannula 2.00 05/29/18 15:00 112 16 132/83 (99) 95 Nasal Cannula 2.00 05/29/18 14:00 120 20 172/89 (116) 89 Nasal Cannula 2.00 05/29/18 13:30 88 Room Air I & O 05/30/18 07:00 Intake Total 900 ml Output Total 1655 ml Balance -755 ml Capillary Refill : Less Than 3 Seconds General Appearance: No Apparent Distress, WD/WN, Chronically ill, Thin HEENT: Normal ENT Inspection Neck: Normal Inspection Respiratory: Chest Non Tender, No Accessory Muscle Use, No Respiratory Distress , Crackles Cardiovascular: Regular Rate, Rhythm Gastrointestinal: non tender, soft, distended (Slightly increased) Extremity: Normal Capillary Refill Neurologic/Psychiatric: Alert, Oriented x3, No Motor/Sensory Deficits, Normal Mood/Affect Skin: Normal Color, Warm/Dry Lymphatic: No Adenopathy Results Lab Laboratory Tests 05/30/18 03:05: White Blood Count 13.0H, Red Blood Count 4.77, Hemoglobin 15.1, Hematocrit 44, Mean Corpuscular Volume 91, Mean Corpuscular Hemoglobin 32, Mean Corpuscular Hemoglobin Concent 35, Red Cell Distribution Width 12.4, Platelet Count 211, Mean Platelet Volume 8.8, Neutrophils (%) (Auto) 78H, Lymphocytes (%) (Auto) 9L , Monocytes (%) (Auto) 13H, Eosinophils (%) (Auto) 0, Basophils (%) (Auto) 0, Neutrophils # (Auto) 10.1H, Lymphocytes # (Auto) 1.2, Monocytes # (Auto) 1.6H, Eosinophils # (Auto) 0.0, Basophils # (Auto) 0.0, Sodium Level 128L, Potassium Level 4.0, Chloride Level 91L, Carbon Dioxide Level 22, Anion Gap 15H, Blood Urea Nitrogen 8, Creatinine 0.80, Estimat Glomerular Filtration Rate > 60, BUN/ Creatinine Ratio 10, Glucose Level 127H, Calcium Level 9.3, Phosphorus Level 3.7 , Magnesium Level 1.9 Microbiology 05/26/18 Blood Culture - Preliminary, Resulted No growth 05/27/18 Gram Stain - Final, Complete 05/27/18 Body Fluid Culture - Final, Complete No growth 05/29/18 Gram Stain - Final, Resulted 05/29/18 Sputum Culture - Preliminary, Resulted No growth 05/26/18 Urine Culture - Final, Complete NO GROWTH Assessment/Plan Assessment/Plan Assessment/Plan Left pleural effusion and pneumothorax status post left thoracostomy tube placement Ileus Patient 62-year-old male who had thoracostomy tube placed on the left for drainage of large pleural effusion. Chest x-ray demonstrating no pneumothorax and slight increase in bilateral infiltrates. He was switched to waterseal this morning we'll keep on waterseal today and repeat chest x-ray in the morning. If remains improved would consider removal but prior to removal Dr. Matute had discussed wanting to have pleurodesis performed. We obtained an abdominal x-ray today consistent with ileus. Encourage patient to increase activity he is currently still passing some flatus we'll continue to follow. Clinical Quality Measures DVT/VTE Risk/Contraindication: Risk Factor Score Per Nursin RFS Level Per Nursing on Admit: 4+=Very High GEORGE TINOCO DO May 30, 2018 13:21
[2018-05-30] MEDS ORDERED: NS IV 1000 ML 1,000 ML ONE (15:13)
[2018-05-30] MEDS: NS IV 1000 ML 1,000 ML IV SCH (15:18)
[2018-05-30] MEDS: ONDANSETRON 4 MG/2 ML (SDV) Z0FRAN IV PRN ×2 (16:50→23:05)
[2018-05-30] MEDS ORDERED: PROMETHAZINE INJ 25 MG/ML (PHENERGAN) AMP IVP NR (17:00)
[2018-05-30] MEDS ORDERED: PROMETHAZINE INJ 25 MG/ML (PHENERGAN) AMP ONE (17:12)
[2018-05-30] MEDS ORDERED: NS 250 ML (IVPB) BAG IV ONE (18:45)
[2018-05-30] MEDS ORDERED: RECEIVED CONTRAST (Hold Metformin) IV SCH (18:45)
[2018-05-30] MEDS ORDERED: IOHEXOL 350 MG/ML 100 ML (OMNIPAQUE 350) VIAL IV ONE (18:45)
--- NOTE | 2018-05-30 20:01 | Diagnostic Imaging Report ---
PROCEDURE: CT chest, abdomen, and pelvis with and without contrast. TECHNIQUE: Precontrast images were obtained of the chest, abdomen, and pelvis. Additional images were ministrations intravenous contrast were also obtained. A delayed series was performed as well as sagittal coronal reconstructed images. The previous exam of 05/28/2018 noted a large bore indwelling catheter left-sided chest tube in place with a hydropneumothorax on the left. There was also a diffuse pneumonia type infiltrate throughout the left lung. On this exam, the pneumothorax component of the hydropneumothorax has increased somewhat. The amount of fluid in the left lung base is slightly smaller. The left lung, itself, does seem somewhat better aerated although there are still diffuse alveolar/interstitial pulmonary infiltrates. There has also been an increase in the atelectasis/pneumonia involving the right upper lung and a small amount of atelectasis/infiltrate and fluid has developed in the right lung base. The heart is stable in size. Coronary artery calcifications are again noted. The aorta is not abnormally dilated. There is no defect within the pulmonary arteries to indicate a pulmonary embolus although the branches of the pulmonary arteries are not well opacified. As seen on the prior exam, there is subcutaneous emphysema along the periphery of the left thorax and the left flank. This has diminished in the interval since the prior exam. Since the previous exam a large amount of fluid has developed within the stomach. There are also now numerous dilated fluid-filled segments of small bowel present. There is also somewhat greater distention of both the large and small bowel by gas than noted on the previous exam. This appearance could be secondary to a severe ileus. The possibility that there is a distal small bowel obstruction should certainly be considered; however. If further evaluation is desired, then a contrast small bowel exam would be recommended. There is no sign of a pneumoperitoneum. The liver, spleen, adrenals, kidneys, aorta and inferior vena cava and gallbladder show no sign of an acute abnormality. The urinary bladder and prostate gland are grossly unremarkable. The appendix was not well visualized. The bone windows show no evidence for a fracture or for a destructive lesion. IMPRESSION: 1. The left-sided chest tube seen on the prior exam remains in place but there has been some increase in the pneumothorax component of the hydropneumothorax on the left. There is also somewhat greater involvement of the right upper lobe by pneumonia/atelectasis. There is no acute cardiopulmonary abnormality noted otherwise. Specifically, there is no pulmonary embolus or dissection. 2. A large amount of fluid has developed within the stomach and there are now numerous dilated fluid-filled segments of small bowel present. This could be secondary to an ileus or to a distal small bowel obstruction. Recommendations as above. 3. There is no acute abnormality of the abdomen or pelvis otherwise. 4. These results were discussed with Dr. Yen at the time of this dictation. Dictated by: Dictated on workstation # [id number]
[2018-05-30] MEDS ORDERED: niCARdipine IV FOR DRIP 50 MG KIT ONE (20:39)
[2018-05-30] MEDS ORDERED: NS (IVPB) 250 ML ONE (20:39)
[2018-05-30] MEDS: LORazepam INJ 2 MG/ML (ATIVAN) VIAL IVP PRN (23:02)
[2018-05-30] MEDS ORDERED: CHLORASEPTIC SPRAY 177 ML LIQUID MC ONE (23:38)
[2018-05-31] VITALS (24 sets, daily range): BP systolic 103–168; BP diastolic 60–102
[2018-05-31] MEDS ORDERED: LIDOCAINE UROJET 2% GEL 10 ML PKG ONE (00:45)
[2018-05-31] MEDS: PIPERACILLIN SODIUM/TAZOBACTAM 4.5 GM in NS (IVPB) 100 ML IV SCH ×4 (01:05→21:57)
[2018-05-31] MEDS: LORazepam 0.5 MG (ATIVAN) TABLET PO SCH ×2 (01:05→09:49)
[2018-05-31] MEDS: DOCUSATE SODIUM 100 MG (COLACE) CAP PO SCH ×3 (01:05→21:56)
[2018-05-31] MEDS: LACTULOSE SYRUP 10GM/15ML (ENULOSE) 30ML UDC PO SCH ×3 (01:05→21:56)
[2018-05-31] MEDS: NS IV 1000 ML 1,000 ML IV SCH ×5 (01:06→23:09)
[2018-05-31] MEDS: LORazepam INJ 2 MG/ML (ATIVAN) VIAL IVP PRN (02:11)
[2018-05-31] MEDS: morphine INJ 4 MG/ML 1 ML (VIAL/SYRINGE) IVP PRN ×2 (02:12→23:19)
[2018-05-31] MEDS: RT-ALBUTEROL/IPRATROPIUM 3 ML (DUONEB) VIAL INH SCH ×6 (02:30→22:16)
[2018-05-31 03:11] LABS: BASOPHILS % (AUTO) 0 % (0-10); EOSINOPHILS % (AUTO) 0 % (0-10); HEMATOCRIT 40 % (40-54); HEMOGLOBIN 13.8 G/DL (13.3-17.7); LYMPHOCYTES # (AUTO) 0.8 X 10^3 (1.0-4.0); LYMPHOCYTES % (AUTO) 7 % (12-44); MEAN CORPUSCULAR HEMOGLOBIN 32 PG (25-34); MEAN CORPUSCULAR HGB CONC 35 G/DL (32-36); MEAN CORPUSCULAR VOLUME 92 FL (80-99); MEAN PLATELET VOLUME 8.5 FL (7.4-10.4); MONOCYTES # (AUTO) 1.4 X 10^3 (0.0-1.0); MONOCYTES % (AUTO) 12 % (0-12); NEUTROPHILS # (AUTO) 9.8 X 10^3 (1.8-7.8); NEUTROPHILS % (AUTO) 81 % (42-75); PLATELET COUNT 244 10^3/uL (130-400); RED CELL DISTRIBUTION WIDTH 12.4 % (10.0-14.5); WHITE BLOOD COUNT 12.1 10^3/uL (4.3-11.0)
[2018-05-31 03:33] LABS: BUN/CREATININE RATIO 11; CALCIUM 8.8 MG/DL (8.5-10.1); CARBON DIOXIDE 23 MMOL/L (21-32); CHLORIDE 90 MMOL/L (98-107); CREATININE SERUM 0.76 MG/DL (0.60-1.30); GFR ESTIMATED > 60; GLUCOSE 117 MG/DL (70-105); MAGNESIUM 1.7 MG/DL (1.8-2.4); POTASSIUM 3.7 MMOL/L (3.6-5.0); SODIUM 127 MMOL/L (135-145)
[2018-05-31] MEDS: POTASSIUM CL 10MEQ/50ML IVPB 50 ML IV SCH (06:14)
[2018-05-31] MEDS: MAGNESIUM 1 GM/100 ML IVPB 100 ML IV SCH ×3 (06:14→07:57)
[2018-05-31] MEDS: KCL 20 MEQ TAB (K-DUR) PO SCH (06:14)
--- NOTE | 2018-05-31 07:03 | Diagnostic Imaging Report ---
Indication: Enteric tube placement. Comparison: Earlier same day. Discussion: Two views of the chest and abdomen were obtained. Enteric tube tip is folded upon itself near the GE junction. Recommend continued advancement of at least 10 cm. Diffuse pulmonary infiltrates are again noted. Mild cardiomegaly is stable. Marked gaseous distention of the colon is again incompletely viewed. Extensive subcutaneous emphysema is noted along the left body wall. Left chest tube is stable. Impression: 1. Enteric tube is folded upon itself in the GE junction. Recommend continued advancement. Dictated by: Dictated on workstation # [id number]
--- NOTE | 2018-05-31 07:25 | Diagnostic Imaging Report ---
INDICATION: Shortness of breath Portable chest 2:40 AM There is an NG tube projecting over the stomach. There is left thoracostomy tube. There is left subcutaneous emphysema. There is suboptimal inspiration with pulmonary vascular congestion and cardiomegaly. IMPRESSION: Vascular congestion. There is no appreciable effusion or pneumothorax. No interval change compared to the previous day. Dictated by: Dictated on workstation # [id number]
[2018-05-31] MEDS: MULTIVIT W/MINERALS TAB (THERAGRAN M) PO SCH (07:57)
[2018-05-31] MEDS ORDERED: BISACODYL 10 MG SUPP (DULCOLAX) PR ONE (09:45)
[2018-05-31] MEDS: FOLIC ACID 1 MG TAB PO SCH (09:50)
[2018-05-31] MEDS: NICOTINE 14 MG (NICODERM) PATCH TD SCH (09:50)
[2018-05-31] MEDS: GABAPENTIN 100 MG (NEURONTIN) CAP PO SCH ×3 (10:16→21:56)
[2018-05-31] MEDS: THIAMINE INJECTION 100 MG, FOLIC ACID INJECTION 1 MG, VITAMIN MULTI INJECTION 10 ML, MA... IV SCH ×5 (10:26)
[2018-05-31] MEDS: niCARdipine IV 50 MG in NS (IVPB) 230 ML IV SCH ×2 (10:28→21:57)
--- NOTE | 2018-05-31 10:41 | Progress Note-Hospitalist ---
Subjective HPI/CC On Admission Date Seen by Provider: May 31, 2018 Time Seen by Provider: 09:30 The patient is a 62-year-old white male who presented to the emergency room last night with complaints of shortness of breath. The patient reported that he had begun to note shortness of breath about 2 months ago and it has steadily gotten worse. He had at least 2 contacts with walk-in clinics and oral antibiotics were prescribed. This did not seem to help. He denied fever or chills. He stopped smoking during this period of time. He reports that he had about a [id number] smoking history to that point. Workup in the emergency room showed a total whiteout of the left lung field with deviation of the trachea to the right. The air bronchogram showed at least patency of the very proximal portion of the left mainstem bronchus. He has no past history of heart disease. Subjective/Events-last exam Patient has been very confused and agitated being found at the foot of his bed repeatedly with his urinary catheter and chest tube catheter pulled tight. Overnight he was becoming progressively more hypertensive and tachycardic. CT chest abdomen pelvis was obtained which showed a great deal of fluid in his stomach and dilated intestines consistent with an ileus. NG tube was placed with about 1400 mL of fluid that was obtained. Patient's blood pressure has come down although he's been on a Cardene drip overnight. In agreement addition he's received a great deal of IV fluids to stabilize his pulse and replace intravascular volume depletion. His abdomen is much less distended and he seems to be much more comfortable however he did pull his NG tube and has refused to have it replaced. At the time of my interview this morning he noticed that he's in the hospital. This chest tube was replaced to suction since the pneumothorax had progressed after having been placed to water seal. Patient notes that he has been having a change in his bowel habits in the last 6 months with constipation alternating with diarrhea. He denies having noticed any blood in his stools. He has not had a bowel movement since admission. He is been refusing oral medications including the lactulose. He remains on Zosyn Review of Systems Gastrointestinal: Abdominal Pain, Constipation Neurological: Confusion Objective Exam Vital Signs Vital Signs Date Time Temp Pulse Resp B/P (MAP) Pulse Ox O2 Delivery O2 Flow Rate FiO2 05/31/18 09:00 101 19 148/81 (103) 100 Nasal Cannula 3.00 05/31/18 07:45 97.5 Capillary Refill : Less Than 3 Seconds General Appearance: Chronically ill, Moderate Distress HEENT: Other (Poor dentition) Neck: Full Range of Motion, Normal Inspection, Supple Respiratory: No Accessory Muscle Use, No Respiratory Distress, Crackles Cardiovascular: No Edema, No Gallop, No Murmur, Tachycardia Gastrointestinal: No Organomegaly, No Pulsatile Mass, Non Tender, Soft, Other ( Scattered bowel sounds) Rectal: Deferred Back: Normal Inspection, No CVA Tenderness, No Vertebral Tenderness Extremity: Non Tender, No Calf Tenderness, No Pedal Edema Neurologic/Psychiatric: Alert, Disoriented, Other (Somewhat combative) Results/Procedures Lab Laboratory Tests 05/31/18 03:00 Patient resulted labs reviewed. Assessment/Plan Assessment and Plan Assess & Plan/Chief Complaint 1. Large bloody pleural effusion status post chest tube placement etiology to be determined 2. Chronic alcoholism currently detoxing with disorientation and agitation will check an ammonia level 3. Ileus status post decompression with an NG tube with an improved abdominal exam 4. Hypertension possibly secondary to alcohol withdrawing and/or pain 5. Tachycardia possibly secondary to withdrawing her intravascular volume depletion. Have increased IV fluids. 6. Confusion and agitation will start gabapentin as this is shown efficacy in detoxing people 7. Prognosis is guarded patient continues to request a full resuscitative efforts. Clinical Quality Measures DVT/VTE Risk/Contraindication: Risk Factor Score Per Nursin RFS Level Per Nursing on Admit: 4+=Very High BRIAN HURST MD May 31, 2018 10:41
--- NOTE | 2018-05-31 11:22 | Progress Note (SOAP) ---
Subjective Date Seen by a Provider: May 31, 2018 Time Seen by a Provider: 11:00 Subjective/Events-last exam patient non-compliant and refusing most treatments. NGT pulled after 1400 out last night. has some abdominal distension however positive bowel sounds. mild continued PTX. Objective Exam Vital Signs Date Time Temp Pulse Resp B/P (MAP) Pulse Ox O2 Delivery O2 Flow Rate FiO2 05/31/18 09:00 101 19 148/81 (103) 100 Nasal Cannula 3.00 05/31/18 08:45 Nasal Cannula 3.00 05/31/18 08:00 113 25 103/60 (74) 95 Nasal Cannula 4.00 05/31/18 07:45 97.5 Nasal Cannula 4.00 05/31/18 07:00 111 05/31/18 07:00 110 19 104/85 (91) 99 Nasal Cannula 4.00 05/31/18 06:23 100 Nasal Cannula 2.00 05/31/18 06:00 106 37 154/81 (105) 94 Nasal Cannula 2.00 05/31/18 05:00 113 19 106/67 (80) 100 Nasal Cannula 2.00 05/31/18 04:00 98.2 05/31/18 04:00 120 22 133/73 (93) 95 Nasal Cannula 2.00 05/31/18 04:00 93 Nasal Cannula 4.00 05/31/18 03:00 125 24 148/73 (98) 100 Nasal Cannula 2.00 05/31/18 02:30 100 Nasal Cannula 2.00 05/31/18 02:00 114 22 116/73 (87) 100 Nasal Cannula 2.00 05/31/18 01:00 123 20 138/102 (114) 100 Nasal Cannula 2.00 05/31/18 01:00 121 05/31/18 00:00 98.3 05/31/18 00:00 93 Nasal Cannula 4.00 05/31/18 00:00 121 28 138/79 (98) 93 Nasal Cannula 2.00 05/30/18 23:00 128 47 178/90 (119) 91 Nasal Cannula 2.00 05/30/18 22:23 95 Nasal Cannula 3.00 05/30/18 22:00 118 25 155/90 (111) 98 Nasal Cannula 2.00 05/30/18 21:17 98.5 05/30/18 21:00 123 26 159/116 (130) 99 Nasal Cannula 2.00 05/30/18 20:00 125 18 218/106 (143) 89 Nasal Cannula 2.00 05/30/18 20:00 93 Nasal Cannula 4.00 05/30/18 20:00 97.8 05/30/18 19:23 120 29 193/98 (129) 96 Nasal Cannula 2.00 05/30/18 19:00 115 05/30/18 18:00 117 19 186/98 (127) 100 Nasal Cannula 2.00 05/30/18 17:00 116 20 186/120 (142) Nasal Cannula 2.00 05/30/18 16:01 98.5 Nasal Cannula 2.00 05/30/18 16:00 91 Nasal Cannula 4.00 05/30/18 16:00 113 21 164/96 (118) 91 Nasal Cannula 2.00 05/30/18 15:00 122 5 149/103 (118) Nasal Cannula 2.00 05/30/18 14:12 98 Nasal Cannula 2.00 05/30/18 14:00 101 16 154/86 (108) 93 Nasal Cannula 2.00 05/30/18 13:00 112 05/30/18 13:00 112 20 93 Nasal Cannula 2.00 05/30/18 12:09 91 Nasal Cannula 4.00 05/30/18 12:00 108 18 141/90 (107) 93 Nasal Cannula 2.00 I & O 05/31/18 07:00 Intake Total 1000 ml Output Total 2860 ml Balance -1860 ml Capillary Refill : Less Than 3 Seconds General Appearance: No Apparent Distress HEENT: PERRL/EOMI Neck: Full Range of Motion Respiratory: Decreased Breath Sounds, Rhonci, Wheezing Cardiovascular: Regular Rate, Rhythm Gastrointestinal: normal bowel sounds, non tender, soft, distended Extremity: Normal Capillary Refill Neurologic/Psychiatric: Alert, Oriented x3 Skin: Normal Color Lymphatic: No Adenopathy Results Lab Laboratory Tests 05/31/18 03:00: White Blood Count 12.1H, Red Blood Count 4.30L, Hemoglobin 13.8, Hematocrit 40, Mean Corpuscular Volume 92, Mean Corpuscular Hemoglobin 32, Mean Corpuscular Hemoglobin Concent 35, Red Cell Distribution Width 12.4, Platelet Count 244, Mean Platelet Volume 8.5, Neutrophils (%) (Auto) 81H, Lymphocytes (%) (Auto) 7L , Monocytes (%) (Auto) 12, Eosinophils (%) (Auto) 0, Basophils (%) (Auto) 0, Neutrophils # (Auto) 9.8H, Lymphocytes # (Auto) 0.8L, Monocytes # (Auto) 1.4H, Eosinophils # (Auto) 0.0, Basophils # (Auto) 0.0, Sodium Level 127L, Potassium Level 3.7, Chloride Level 90L, Carbon Dioxide Level 23, Anion Gap 14, Blood Urea Nitrogen 8, Creatinine 0.76, Estimat Glomerular Filtration Rate > 60, BUN/ Creatinine Ratio 11, Glucose Level 117H, Calcium Level 8.8, Phosphorus Level 3.0 , Magnesium Level 1.7L 05/31/18 10:40: Ammonia 22 Microbiology 05/26/18 Blood Culture - Preliminary, Resulted No growth 05/27/18 Gram Stain - Final, Complete 05/27/18 Body Fluid Culture - Final, Complete No growth 05/29/18 Gram Stain - Final, Resulted 05/29/18 Sputum Culture - Preliminary, Resulted No growth 05/26/18 Urine Culture - Final, Complete NO GROWTH Assessment/Plan Assessment/Plan Assess & Plan/Chief Complaint left lung pneumonia with hydropneumothorax s/p CT placement and ileus. ambulate. suppository, reglan. continue CT to water seal. may need 2nd for loculated air. Clinical Quality Measures DVT/VTE Risk/Contraindication: Risk Factor Score Per Nursin RFS Level Per Nursing on Admit: 4+=Very High ZULEMA BANGURA MD May 31, 2018 11:22 am
[2018-05-31] MEDS ORDERED: METOCLOPRAMIDE INJ 10 MG/2 ML (REGLAN) IVP PRN (11:30)
--- NOTE | 2018-05-31 11:55 | Physical Therapy Progress Note ---
Therapy Progress Note Pt in bed, refusing to participate with PT this date. TIMOTHY VELASQUEZ DPMady May 31, 2018 11:55
[2018-05-31] MEDS: METOCLOPRAMIDE INJ 10 MG/2 ML (REGLAN) IVP SCH ×2 (17:20→23:14)
[2018-06-01] VITALS (25 sets, daily range): BP systolic 111–178; BP diastolic 68–99
[2018-06-01] MEDS: morphine INJ 4 MG/ML 1 ML (VIAL/SYRINGE) IVP PRN ×6 (01:03→23:44)
[2018-06-01] MEDS: RT-ALBUTEROL/IPRATROPIUM 3 ML (DUONEB) VIAL INH SCH ×6 (01:57→23:01)
[2018-06-01] MEDS: GABAPENTIN 100 MG (NEURONTIN) CAP PO SCH ×4 (03:19→21:10)
[2018-06-01 03:53] LABS: BASOPHILS % (AUTO) 0 % (0-10); EOSINOPHILS # (AUTO) 0.1 10^3/uL (0.0-0.3); EOSINOPHILS % (AUTO) 1 % (0-10); HEMATOCRIT 39 % (40-54); HEMOGLOBIN 12.9 G/DL (13.3-17.7); LYMPHOCYTES % (AUTO) 12 % (12-44); MEAN CORPUSCULAR HEMOGLOBIN 32 PG (25-34); MEAN CORPUSCULAR HGB CONC 33 G/DL (32-36); MEAN CORPUSCULAR VOLUME 95 FL (80-99); MEAN PLATELET VOLUME 8.8 FL (7.4-10.4); MONOCYTES # (AUTO) 1.5 X 10^3 (0.0-1.0); MONOCYTES % (AUTO) 19 % (0-12); NEUTROPHILS # (AUTO) 5.4 X 10^3 (1.8-7.8); NEUTROPHILS % (AUTO) 68 % (42-75); PLATELET COUNT 229 10^3/uL (130-400); RED BLOOD COUNT 4.06 10^6/uL (4.35-5.85); RED CELL DISTRIBUTION WIDTH 12.3 % (10.0-14.5)
[2018-06-01 04:12] LABS: BUN/CREATININE RATIO 5; CALCIUM 8.1 MG/DL (8.5-10.1); CARBON DIOXIDE 28 MMOL/L (21-32); CHLORIDE 96 MMOL/L (98-107); CREATININE SERUM 0.74 MG/DL (0.60-1.30); GFR ESTIMATED > 60; GLUCOSE 135 MG/DL (70-105); MAGNESIUM 2.3 MG/DL (1.8-2.4); POTASSIUM 3.7 MMOL/L (3.6-5.0); SODIUM 134 MMOL/L (135-145)
[2018-06-01] MEDS: NS IV 1000 ML 1,000 ML IV SCH ×2 (04:58→22:17)
[2018-06-01] MEDS: niCARdipine IV 50 MG in NS (IVPB) 230 ML IV SCH ×2 (04:59→13:54)
[2018-06-01] MEDS: PIPERACILLIN SODIUM/TAZOBACTAM 4.5 GM in NS (IVPB) 100 ML IV SCH ×3 (05:00→21:09)
[2018-06-01] MEDS: METOCLOPRAMIDE INJ 10 MG/2 ML (REGLAN) IVP SCH ×3 (05:01→18:21)
[2018-06-01] MEDS: POTASSIUM CL 10MEQ/50ML IVPB 50 ML IV SCH (05:06)
[2018-06-01] MEDS: MAGNESIUM 1 GM/100 ML IVPB 100 ML IV SCH (05:06)
[2018-06-01] MEDS: KCL 20 MEQ TAB (K-DUR) PO SCH (05:07)
--- NOTE | 2018-06-01 05:22 | Pulmonary Progress Note ---
Subjective Time Seen by a Provider: 05:34 Subjective/Events-last exam chest tube still to suction. No air leak noted in chest tube system . no output noted in chest tube system. Sepsis Event Evaluation Height, Weight, BMI Height: 5'6.00" Weight: 157lbs. 4.0oz. [id number]; 25.2 BMI Method:Stated Exam Exam Vital Signs Date Time Temp Pulse Resp B/P (MAP) Pulse Ox O2 Delivery O2 Flow Rate FiO2 06/01/18 04:00 108 14 172/90 (117) 98 Nasal Cannula 5.00 06/01/18 04:00 Nasal Cannula 5.00 06/01/18 03:00 102 15 169/87 (114) 100 Nasal Cannula 5.00 06/01/18 02:00 107 21 151/99 (116) 98 Nasal Cannula 5.00 06/01/18 01:57 92 Nasal Cannula 5.00 06/01/18 01:03 112 06/01/18 01:00 112 19 150/96 (114) 95 Nasal Cannula 5.00 06/01/18 00:00 105 28 168/93 (118) 99 Nasal Cannula 5.00 06/01/18 00:00 Nasal Cannula 5.00 05/31/18 23:14 98.1 05/31/18 23:00 105 23 166/86 (112) 91 Nasal Cannula 5.00 05/31/18 22:00 114 16 168/98 (121) 94 Nasal Cannula 5.00 05/31/18 21:00 103 20 137/71 (93) 93 Nasal Cannula 4.00 05/31/18 20:00 101 15 123/61 (81) 100 Nasal Cannula 4.00 05/31/18 20:00 98.8 05/31/18 20:00 Nasal Cannula 4.00 05/31/18 19:03 106 05/31/18 19:00 103 14 131/77 (95) 99 Nasal Cannula 4.00 05/31/18 18:35 95 Nasal Cannula 4.00 05/31/18 18:00 107 19 141/69 (93) 96 Nasal Cannula 4.00 05/31/18 17:00 95 15 167/95 (119) 100 Nasal Cannula 4.00 05/31/18 16:00 96 11 118/68 (85) 97 Nasal Cannula 3.00 05/31/18 15:38 Nasal Cannula 3.00 05/31/18 15:36 98.7 05/31/18 15:00 102 18 122/64 (83) 97 Nasal Cannula 3.00 05/31/18 14:00 99 17 117/67 (84) 98 Nasal Cannula 3.00 05/31/18 13:00 105 05/31/18 13:00 105 20 114/65 (81) 95 Nasal Cannula 3.00 05/31/18 12:10 Nasal Cannula 3.00 05/31/18 12:10 99.5 Nasal Cannula 3.00 05/31/18 12:00 120 21 142/68 (92) 99 Nasal Cannula 3.00 05/31/18 11:00 115 31 126/61 (82) 94 Nasal Cannula 3.00 05/31/18 10:00 110 22 137/84 (101) 94 Nasal Cannula 3.00 05/31/18 09:00 101 19 148/81 (103) 100 Nasal Cannula 3.00 05/31/18 08:45 Nasal Cannula 3.00 05/31/18 08:00 113 25 103/60 (74) 95 Nasal Cannula 4.00 05/31/18 07:45 97.5 Nasal Cannula 4.00 05/31/18 07:40 Nasal Cannula 4.00 05/31/18 07:00 111 05/31/18 07:00 110 19 104/85 (91) 99 Nasal Cannula 4.00 05/31/18 06:23 100 Nasal Cannula 2.00 05/31/18 06:00 106 37 154/81 (105) 94 Nasal Cannula 2.00 I & O 06/01/18 06:59 Intake Total 4915.2 ml Output Total 4960 ml Balance -44.8 ml Height & Weight Height: 5'6.00" Weight: 157lbs. 4.0oz. [id number]; 25.2 BMI Method:Stated General Appearance: No Apparent Distress HEENT: PERRL/EOMI Neck: Full Range of Motion Respiratory: Decreased Breath Sounds, Rhonci, Wheezing Cardiovascular: Regular Rate, Rhythm Capillary Refill: Less Than 3 Seconds Gastrointestinal: normal bowel sounds, non tender, soft, distended Extremity: Normal Capillary Refill Neurologic/Psychiatric: Alert, Oriented x3 Skin: Normal Color Lymphatic: No Adenopathy Results Lab Laboratory Tests 05/31/18 03:00 06/01/18 03:10 Assessment/Plan Assessment/Plan S/P large left pleural effusion with opacification of left lung and mass/ compression effect r/o cancer -S/P chest tube -Will consider pleurodesis before pulling chest tube. -No -CT scan of chest reviewed no mass noted -Cytology from pleural fluid is pending pneumothorax - -Continue Chest tube Pulmonary edema -Decrease IVF to 75ml/hr - check BNP Ileus -start colace, and lactulose hyponatremia - possibley SIADH Pneumonia - present from admission -Continue zosyn, azithromycin Metabolic acidosis - improved -Monitor -IVF HTN urgency- resolved since chest tube placement Hyponatremia - possibly SIADH from cancer tobacco use/marijuana use -education TYLER PAINTING DO Jun 01, 2018 05:22
--- NOTE | 2018-06-01 07:00 | Diagnostic Imaging Report ---
Indication: Shortness breath Portable chest at 12:37 AM There are diffuse pulmonary interstitial infiltrates with some alveolar consolidation in the retrocardiac region of the left lower lung. There is a left thoracostomy tube. The sidehole appears to be outside the thoracic cage. There is left chest wall subcutaneous emphysema. Impression: Left basilar consolidation. Diffuse interstitial infiltrates. There is no appreciable effusion or pneumothorax. Thoracostomy tube sidehole appears to be outside the thoracic cage. Dictated by: Dictated on workstation # [id number]
[2018-06-01] MEDS ORDERED: FUROSEMIDE 40 MG/4 ML INJ (LASIX) IVP NR (07:15)
[2018-06-01] MEDS: MULTIVIT W/MINERALS TAB (THERAGRAN M) PO SCH (07:16)
[2018-06-01] MEDS: DOCUSATE SODIUM 100 MG (COLACE) CAP PO SCH ×2 (08:12→21:10)
[2018-06-01] MEDS: guaiFENesin/CODEINE (ROBITUSSIN AC) 10ML UDC PO PRN ×2 (08:15→17:07)
[2018-06-01] MEDS: LACTULOSE SYRUP 10GM/15ML (ENULOSE) 30ML UDC PO SCH ×2 (08:49→21:09)
[2018-06-01] MEDS: FOLIC ACID 1 MG TAB PO SCH (08:50)
[2018-06-01] MEDS: NICOTINE 14 MG (NICODERM) PATCH TD SCH (08:50)
--- NOTE | 2018-06-01 09:10 | Progress Note-Hospitalist ---
Subjective HPI/CC On Admission Date Seen by Provider: Jun 01, 2018 Time Seen by Provider: 08:15 The patient is a 62-year-old white male who presented to the emergency room last night with complaints of shortness of breath. The patient reported that he had begun to note shortness of breath about 2 months ago and it has steadily gotten worse. He had at least 2 contacts with walk-in clinics and oral antibiotics were prescribed. This did not seem to help. He denied fever or chills. He stopped smoking during this period of time. He reports that he had about a [id number] smoking history to that point. Workup in the emergency room showed a total whiteout of the left lung field with deviation of the trachea to the right. The air bronchogram showed at least patency of the very proximal portion of the left mainstem bronchus. He has no past history of heart disease. Subjective/Events-last exam Patient is strangely better today. He is cooperative, alert oriented talks about watching the [employer] game. He had been changed from a benzodiazepine taper for his detox to gabapentin which seems to have worked very well. He has had once small hard bowel movement and was started on Reglan by Dr. Yen yesterday. He does complain of being short of breath and Dr. Matute has ordered an 1 IV Lasix dose since he has been aggressively fluid rehydrated. Ammonia level was within normal limits. Review of Systems Pulmonary: Dyspnea Gastrointestinal: Constipation Neurological: Weakness Objective Exam Vital Signs Vital Signs Date Time Temp Pulse Resp B/P (MAP) Pulse Ox O2 Delivery O2 Flow Rate FiO2 06/01/18 08:18 97.7 06/01/18 06:24 94 Nasal Cannula 5.00 06/01/18 06:00 104 19 156/99 (118) Capillary Refill : Less Than 3 Seconds General Appearance: Chronically ill HEENT: Other (Poor dentition) Neck: Normal Inspection, Non Tender Respiratory: No Accessory Muscle Use, No Respiratory Distress, Crackles, Decreased Breath Sounds Cardiovascular: No Edema, No Gallop, Tachycardia Gastrointestinal: Normal Bowel Sounds, No Pulsatile Mass, Non Tender, Soft, Distended Rectal: Deferred Back: Normal Inspection, No CVA Tenderness, No Vertebral Tenderness Extremity: Normal Capillary Refill, Normal Inspection, Normal Range of Motion, Non Tender Neurologic/Psychiatric: Alert, Oriented x3, Normal Mood/Affect Skin: Warm/Dry, Pallor Results/Procedures Lab Laboratory Tests 06/01/18 03:10 Patient resulted labs reviewed. Imaging: Reviewed Imaging Report Assessment/Plan Assessment and Plan Assess & Plan/Chief Complaint 1. Large bloody pleural effusion status post chest tube placement etiology to be determined-very little output-suspect malignancy 2. Chronic alcoholism currently detoxing with Neurontin . disorientation and agitation are greatly improved off the Ativan-ammonia level is normal 3. Ileus status post decompression with an NG tube with an improved abdominal exam-we'll continue lactulose and Reglan 4. Hypertension possibly secondary to alcohol withdrawing and/or pain 5. Tachycardia possibly secondary to withdrawing or intravascular volume depletion. Had increased IV fluids but now patient appears to be fluid overloaded-Lasix once per Dr. Matute 6. Confusion and agitation improved on gabapentin 7. Prognosis is guarded patient continues to request a full resuscitative efforts. 8. Left lower lobe infiltrate on Zosyn and Zithromax Clinical Quality Measures DVT/VTE Risk/Contraindication: Risk Factor Score Per Nursin RFS Level Per Nursing on Admit: 4+=Very High BRIAN HURST MD Jun 01, 2018 9:10 am
[2018-06-01] MEDS: THIAMINE INJECTION 100 MG, FOLIC ACID INJECTION 1 MG, VITAMIN MULTI INJECTION 10 ML, MA... IV SCH ×5 (09:48)
--- NOTE | 2018-06-01 10:20 | Progress Note (SOAP) ---
Subjective Date Seen by a Provider: Jun 01, 2018 Time Seen by a Provider: 10:00 Subjective/Events-last exam doing better today. no SOB. has cough but chronic. had BM yesterday and tolerating diet. minimal CT output. Objective Exam Vital Signs Date Time Temp Pulse Resp B/P (MAP) Pulse Ox O2 Delivery O2 Flow Rate FiO2 06/01/18 08:18 97.7 06/01/18 07:00 107 06/01/18 06:24 94 Nasal Cannula 5.00 06/01/18 06:00 104 19 156/99 (118) 98 Nasal Cannula 5.00 06/01/18 05:00 104 17 166/88 (114) 96 Nasal Cannula 5.00 06/01/18 04:00 108 14 172/90 (117) 98 Nasal Cannula 5.00 06/01/18 04:00 Nasal Cannula 5.00 06/01/18 03:00 102 15 169/87 (114) 100 Nasal Cannula 5.00 06/01/18 02:00 107 21 151/99 (116) 98 Nasal Cannula 5.00 06/01/18 01:57 92 Nasal Cannula 5.00 06/01/18 01:03 112 06/01/18 01:00 112 19 150/96 (114) 95 Nasal Cannula 5.00 06/01/18 00:00 105 28 168/93 (118) 99 Nasal Cannula 5.00 06/01/18 00:00 Nasal Cannula 5.00 05/31/18 23:14 98.1 05/31/18 23:00 105 23 166/86 (112) 91 Nasal Cannula 5.00 05/31/18 22:00 114 16 168/98 (121) 94 Nasal Cannula 5.00 05/31/18 21:00 103 20 137/71 (93) 93 Nasal Cannula 4.00 05/31/18 20:00 101 15 123/61 (81) 100 Nasal Cannula 4.00 05/31/18 20:00 98.8 05/31/18 20:00 Nasal Cannula 4.00 05/31/18 19:03 106 05/31/18 19:00 103 14 131/77 (95) 99 Nasal Cannula 4.00 05/31/18 18:35 95 Nasal Cannula 4.00 05/31/18 18:00 107 19 141/69 (93) 96 Nasal Cannula 4.00 05/31/18 17:00 95 15 167/95 (119) 100 Nasal Cannula 4.00 05/31/18 16:00 96 11 118/68 (85) 97 Nasal Cannula 3.00 05/31/18 15:38 Nasal Cannula 3.00 05/31/18 15:36 98.7 05/31/18 15:00 102 18 122/64 (83) 97 Nasal Cannula 3.00 05/31/18 14:00 99 17 117/67 (84) 98 Nasal Cannula 3.00 05/31/18 13:00 105 05/31/18 13:00 105 20 114/65 (81) 95 Nasal Cannula 3.00 05/31/18 12:10 Nasal Cannula 3.00 05/31/18 12:10 99.5 Nasal Cannula 3.00 05/31/18 12:00 120 21 142/68 (92) 99 Nasal Cannula 3.00 05/31/18 11:00 115 31 126/61 (82) 94 Nasal Cannula 3.00 I & O 06/01/18 07:00 Intake Total 6155.2 ml Output Total 5110 ml Balance 1045.2 ml Capillary Refill : Less Than 3 Seconds General Appearance: No Apparent Distress HEENT: PERRL/EOMI Neck: Full Range of Motion Respiratory: Chest Non Tender, Crackles, Decreased Breath Sounds, Rhonci, Wheezing Cardiovascular: Regular Rate, Rhythm Gastrointestinal: normal bowel sounds, non tender, soft Extremity: Normal Capillary Refill Neurologic/Psychiatric: Alert, Oriented x3 Skin: Normal Color Lymphatic: No Adenopathy Results Lab Laboratory Tests 05/31/18 10:40: Ammonia 22 05/31/18 12:30: Stool Occult Blood Immunoassay NEGATIVE 06/01/18 03:10: White Blood Count 8.0, Red Blood Count 4.06L, Hemoglobin 12.9L, Hematocrit 39L, Mean Corpuscular Volume 95, Mean Corpuscular Hemoglobin 32, Mean Corpuscular Hemoglobin Concent 33, Red Cell Distribution Width 12.3, Platelet Count 229, Mean Platelet Volume 8.8, Neutrophils (%) (Auto) 68, Lymphocytes (%) (Auto) 12, Monocytes (%) (Auto) 19H, Eosinophils (%) (Auto) 1, Basophils (%) (Auto) 0, Neutrophils # (Auto) 5.4, Lymphocytes # (Auto) 1.0, Monocytes # (Auto) 1.5H, Eosinophils # (Auto) 0.1, Basophils # (Auto) 0.0, Sodium Level 134L, Potassium Level 3.7, Chloride Level 96L, Carbon Dioxide Level 28, Anion Gap 10, Blood Urea Nitrogen 4L, Creatinine 0.74, Estimat Glomerular Filtration Rate > 60, BUN/ Creatinine Ratio 5, Glucose Level 135H, Calcium Level 8.1L, Phosphorus Level 3.0 , Magnesium Level 2.3, B-Type Natriuretic Peptide 285.0H Microbiology 05/26/18 Blood Culture - Preliminary, Resulted No growth 05/27/18 Gram Stain - Final, Complete 05/27/18 Body Fluid Culture - Final, Complete No growth 05/29/18 Gram Stain - Final, Resulted 05/29/18 Sputum Culture - Preliminary, Resulted No growth 05/26/18 Urine Culture - Final, Complete NO GROWTH Assessment/Plan Assessment/Plan Assess & Plan/Chief Complaint left lung pneumonia with hydropneumothorax s/p CT placement and ileus. ambulate. CT to water seal. minimal PTX however loculated and asymptomatic. cytology per pleural effusion negative malignancy. severe COPD however may have lung lesion that will require further imaging. mayl also need further diagnostic studies including EBUS vs. percutaneous bx. Clinical Quality Measures DVT/VTE Risk/Contraindication: Risk Factor Score Per Nursin RFS Level Per Nursing on Admit: 4+=Very High ZULEMA BANGURA MD Jun 01, 2018 10:20 am
[2018-06-01] MEDS: CALCIUM CARBONATE 500 MG (TUMS) TAB.CHEW PO PRN (22:15)
[2018-06-02] VITALS (26 sets, daily range): BP systolic 105–176; BP diastolic 75–107
[2018-06-02] MEDS: METOCLOPRAMIDE INJ 10 MG/2 ML (REGLAN) IVP SCH ×4 (00:32→17:28)
[2018-06-02] MEDS: LORazepam INJ 2 MG/ML (ATIVAN) VIAL IVP PRN ×3 (01:24→22:03)
[2018-06-02] MEDS: RT-ALBUTEROL/IPRATROPIUM 3 ML (DUONEB) VIAL INH SCH ×6 (02:51→22:18)
[2018-06-02 03:44] LABS: BASOPHILS % (AUTO) 0 % (0-10); EOSINOPHILS # (AUTO) 0.1 10^3/uL (0.0-0.3); EOSINOPHILS % (AUTO) 2 % (0-10); HEMATOCRIT 39 % (40-54); HEMOGLOBIN 13.1 G/DL (13.3-17.7); LYMPHOCYTES # (AUTO) 1.2 X 10^3 (1.0-4.0); LYMPHOCYTES % (AUTO) 14 % (12-44); MEAN CORPUSCULAR HEMOGLOBIN 32 PG (25-34); MEAN CORPUSCULAR HGB CONC 34 G/DL (32-36); MEAN CORPUSCULAR VOLUME 95 FL (80-99); MEAN PLATELET VOLUME 8.4 FL (7.4-10.4); MONOCYTES # (AUTO) 1.6 X 10^3 (0.0-1.0); MONOCYTES % (AUTO) 18 % (0-12); NEUTROPHILS # (AUTO) 5.8 X 10^3 (1.8-7.8); NEUTROPHILS % (AUTO) 66 % (42-75); PLATELET COUNT 258 10^3/uL (130-400); RED BLOOD COUNT 4.12 10^6/uL (4.35-5.85); RED CELL DISTRIBUTION WIDTH 12.6 % (10.0-14.5); WHITE BLOOD COUNT 8.8 10^3/uL (4.3-11.0)
[2018-06-02 04:06] LABS: BUN/CREATININE RATIO 4; CALCIUM 8.2 MG/DL (8.5-10.1); CARBON DIOXIDE 28 MMOL/L (21-32); CHLORIDE 93 MMOL/L (98-107); CREATININE SERUM 0.74 MG/DL (0.60-1.30); GFR ESTIMATED > 60; GLUCOSE 134 MG/DL (70-105); MAGNESIUM 2.2 MG/DL (1.8-2.4); PHOSPHORUS 2.4 MG/DL (2.3-4.7); POTASSIUM 3.2 MMOL/L (3.6-5.0); SODIUM 130 MMOL/L (135-145)
[2018-06-02] MEDS ORDERED: NS (IVPB) 250 ML ONE (04:58)
[2018-06-02] MEDS ORDERED: niCARdipine IV FOR DRIP 50 MG KIT ONE (04:58)
[2018-06-02] MEDS: niCARdipine IV 50 MG in NS (IVPB) 230 ML IV SCH (05:09)
[2018-06-02] MEDS: GABAPENTIN 100 MG (NEURONTIN) CAP PO SCH ×4 (05:09→21:21)
[2018-06-02] MEDS: morphine INJ 4 MG/ML 1 ML (VIAL/SYRINGE) IVP PRN ×4 (05:09→21:21)
--- NOTE | 2018-06-02 05:48 | Pulmonary Progress Note ---
Subjective Time Seen by a Provider: 10:18 Subjective/Events-last exam pt denies SOB. Sepsis Event Evaluation Height, Weight, BMI Height: 5'6.00" Weight: 155lbs. 8.0oz. [id number]; 25.2 BMI Method:Stated Exam Exam Vital Signs Date Time Temp Pulse Resp B/P (MAP) Pulse Ox O2 Delivery O2 Flow Rate FiO2 06/02/18 03:00 112 19 150/99 (116) 96 Nasal Cannula 3.00 06/02/18 02:51 100 Nasal Cannula 4.00 06/02/18 02:30 113 14 147/99 (115) 95 Nasal Cannula 4.00 06/02/18 02:00 106 15 116/85 (95) 97 Nasal Cannula 5.00 06/02/18 01:00 112 06/02/18 01:00 112 19 145/91 (109) 93 Nasal Cannula 5.00 06/02/18 00:41 114 17 124/75 (91) 90 Nasal Cannula 5.00 06/02/18 00:00 107 12 116/81 (93) 92 Nasal Cannula 4.00 06/02/18 00:00 Nasal Cannula 4.00 06/01/18 23:20 105 11 125/84 (98) 98 Nasal Cannula 4.00 06/01/18 23:01 98 Nasal Cannula 5.00 06/01/18 23:00 108 11 135/85 (102) 97 Nasal Cannula 5.00 06/01/18 22:00 108 13 127/79 (95) 91 Nasal Cannula 5.00 06/01/18 21:41 98.9 06/01/18 21:00 105 10 122/79 (93) 94 Nasal Cannula 5.00 06/01/18 20:00 Nasal Cannula 5.00 06/01/18 20:00 107 13 127/80 (96) 96 Nasal Cannula 5.00 06/01/18 19:54 93 Nasal Cannula 5.00 06/01/18 19:00 110 06/01/18 19:00 110 16 125/82 (96) 91 Nasal Cannula 5.00 06/01/18 18:00 108 16 137/82 (100) 93 Nasal Cannula 5.00 06/01/18 17:00 107 23 146/93 (110) 94 Nasal Cannula 5.00 06/01/18 16:30 98.9 Nasal Cannula 5.00 06/01/18 16:30 Nasal Cannula 5.00 06/01/18 16:00 100 20 134/76 (95) 95 Nasal Cannula 5.00 06/01/18 15:00 99 18 111/68 (82) 95 Nasal Cannula 5.00 06/01/18 14:29 91 Nasal Cannula 5.00 06/01/18 14:00 106 22 129/77 (94) 93 Nasal Cannula 5.00 06/01/18 13:00 103 12 174/88 (116) 94 Nasal Cannula 5.00 06/01/18 13:00 103 06/01/18 12:48 Nasal Cannula 5.00 06/01/18 12:48 98.1 Nasal Cannula 5.00 06/01/18 12:00 105 19 161/92 (115) 96 Nasal Cannula 5.00 06/01/18 11:00 103 30 161/86 (111) 94 Nasal Cannula 5.00 06/01/18 10:37 97 Nasal Cannula 5.00 06/01/18 10:00 100 21 146/91 (109) 96 Nasal Cannula 5.00 06/01/18 09:00 101 13 157/89 (111) 95 Nasal Cannula 5.00 06/01/18 08:18 97.7 06/01/18 08:15 Nasal Cannula 5.00 06/01/18 08:00 110 29 178/97 (124) 93 Nasal Cannula 5.00 06/01/18 07:00 101 19 151/84 (106) 97 Nasal Cannula 5.00 06/01/18 07:00 107 06/01/18 06:24 94 Nasal Cannula 5.00 06/01/18 06:00 104 19 156/99 (118) 98 Nasal Cannula 5.00 I & O 06/02/18 07:00 Intake Total 1220 ml Output Total 3750 ml Balance -2530 ml Height & Weight Height: 5'6.00" Weight: 155lbs. 8.0oz. 70.321719gy; 25.2 BMI Method:Stated General Appearance: No Apparent Distress HEENT: PERRL/EOMI Neck: Full Range of Motion Respiratory: Chest Non Tender, Crackles, Decreased Breath Sounds, Rhonci, Wheezing Cardiovascular: Regular Rate, Rhythm Capillary Refill: Less Than 3 Seconds Gastrointestinal: normal bowel sounds, non tender, soft Extremity: Normal Capillary Refill Neurologic/Psychiatric: Alert, Oriented x3 Skin: Normal Color Lymphatic: No Adenopathy Results Lab Laboratory Tests 06/01/18 03:10 06/02/18 03:06 Assessment/Plan Assessment/Plan S/P large left pleural effusion with opacification of left lung and mass/ compression effect r/o cancer -S/P chest tube -Will consider pleurodesis before pulling chest tube. -No -CT scan of chest reviewed no mass noted -Cytology from pleural fluid is pending pneumothorax - -Continue Chest tube Pulmonary edema - IVF 75ml/hr Ileus -surgery following hyponatremia - possibly SIADH Pneumonia - present from admission - zosyn, azithromycin Metabolic acidosis - improved -Monitor -IVF HTN urgency- resolved since chest tube placement Hyponatremia - possibly SIADH from cancer tobacco use/marijuana use -education TYLER PAINTING DO Jun 02, 2018 05:48
[2018-06-02] MEDS: PIPERACILLIN SODIUM/TAZOBACTAM 4.5 GM in NS (IVPB) 100 ML IV SCH ×3 (06:46→21:30)
[2018-06-02] MEDS: POTASSIUM CL 10MEQ/50ML IVPB 50 ML IV SCH ×5 (06:46→10:21)
[2018-06-02] MEDS: MAGNESIUM 1 GM/100 ML IVPB 100 ML IV SCH (06:47)
[2018-06-02] MEDS: KCL 20 MEQ TAB (K-DUR) PO SCH (06:47)
[2018-06-02] MEDS: NICOTINE 14 MG (NICODERM) PATCH TD SCH ×2 (07:54→21:21)
[2018-06-02] MEDS ORDERED: FUROSEMIDE 40 MG/4 ML INJ (LASIX) IVP NR (08:00)
[2018-06-02] MEDS ORDERED: SIMETHICONE 40 MG/0.6 ML (MYLICON DROPS) 30 ML BTL PO PRN (08:00)
--- NOTE | 2018-06-02 08:50 | Progress Note-Hospitalist ---
Subjective HPI/CC On Admission Date Seen by Provider: Jun 02, 2018 Time Seen by Provider: 07:30 The patient is a 62-year-old white male who presented to the emergency room last night with complaints of shortness of breath. The patient reported that he had begun to note shortness of breath about 2 months ago and it has steadily gotten worse. He had at least 2 contacts with walk-in clinics and oral antibiotics were prescribed. This did not seem to help. He denied fever or chills. He stopped smoking during this period of time. He reports that he had about a 63-[id number]-cplu smoking history to that point. Workup in the emergency room showed a total whiteout of the left lung field with deviation of the trachea to the right. The air bronchogram showed at least patency of the very proximal portion of the left mainstem bronchus. He has no past history of heart disease. Subjective/Events-last exam Pt is lying in bed and complaining of SOB that is getting worse. When asked when this started he stated months ago. I asked if it was worse then yesterday and he said no. Seems confused. Discussed with RN- tolerating orals but still on cardene gtt. Objective Exam Vital Signs Vital Signs Date Time Temp Pulse Resp B/P (MAP) Pulse Ox O2 Delivery O2 Flow Rate FiO2 06/02/18 12:00 Nasal Cannula 3.00 06/02/18 12:00 116 31 124/92 (103) 93 06/02/18 10:14 32 06/02/18 04:00 98.5 Capillary Refill : Less Than 3 Seconds General Appearance: No Apparent Distress, WD/WN Respiratory: No Accessory Muscle Use, No Respiratory Distress, Crackles Cardiovascular: Regular Rate, Rhythm, No Murmur Genital/Rectal: Other (ayers in place) Extremity: No Calf Tenderness, No Pedal Edema Neurologic/Psychiatric: Alert, Other (oriented to major details only) Results/Procedures Lab Laboratory Tests 06/02/18 03:06 Patient resulted labs reviewed. Imaging: Reviewed Imaging Report Assessment/Plan Assessment and Plan Assess & Plan/Chief Complaint Pleural Effusion Diagnosis/Problems Diagnosis/Problems (1) Pleural effusion associated with pulmonary infection Status: Acute Assessment & Plan: chest tube placed- management by Dr Matute Path back and show malignant cells consistent with adenocarcinoma Will consult Oncology Cultures negative from fluid (2) Hyponatremia Status: Acute Assessment & Plan: Na 130 today Likely due to fluid overload status (3) Alcoholism Status: Chronic Assessment & Plan: Continue on ativan and Gabapentin for withdrawal CIWA protocol (4) Pneumonia Status: Acute Assessment & Plan: Continue on Zosyn Cultures negative Transition to orals when able to tolerate more PO Qualifiers: Pneumonia type: due to unspecified organism Laterality: left Lung location: unspecified part of lung Qualified Codes: J18.9 - Pneumonia, unspecified organism (5) Hypertension Status: Acute Assessment & Plan: Improving control DC cardene gtt Qualifiers: Hypertension type: unspecified Qualified Codes: I10 - Essential (primary) hypertension (6) Ileus Status: Acute Assessment & Plan: Continue lactulose and reglan Will add simethicone for gas Surgery consulted, appreciate recs Clinical Quality Measures DVT/VTE Risk/Contraindication: Risk Factor Score Per Nursin RFS Level Per Nursing on Admit: 4+=Very High DANG ULLOA MD Jun 02, 2018 8:50 am
[2018-06-02] MEDS: LACTULOSE SYRUP 10GM/15ML (ENULOSE) 30ML UDC PO SCH ×2 (08:53→21:21)
[2018-06-02] MEDS: FOLIC ACID 1 MG TAB PO SCH (08:53)
[2018-06-02] MEDS: DOCUSATE SODIUM 100 MG (COLACE) CAP PO SCH ×2 (08:54→21:21)
[2018-06-02] MEDS: MULTIVIT W/MINERALS TAB (THERAGRAN M) PO SCH (08:54)
--- NOTE | 2018-06-02 09:26 | Diagnostic Imaging Report ---
PATIENT HISTORY: Dyspnea. TECHNIQUE: Single frontal view of the chest. COMPARISON: 06/01/2018. FINDINGS: Lung volumes are low. There are interstitial and airspace opacities in the lungs bilaterally, which appears unchanged compared to the prior exam. Mild soft tissue gas is seen along the left chest wall, mildly improved since the prior study. No significant pneumothorax is seen. There may be a small left pleural effusion. The cardiac silhouette is stable in size. The left-sided chest tube appears unchanged in position, with the sidehole outside the chest wall. IMPRESSION: 1. Low lung volumes with stable bilateral pulmonary opacities. Aeration appears overall unchanged. This may be due to infection or edema. 2. Small left pleural effusion. 3. Left chest wall soft tissue air appears mildly decreased. 4. The left-sided chest tube is unchanged in position, with the sidehole outside the chest wall. Dictated by: Dictated on workstation # [id number]
--- NOTE | 2018-06-02 09:40 | Physical Therapy Daily Note ---
PT Daily Note-Current Subjective Pt was awake in bed talking to his physician when PT entered room. Pt agreed to get up and walk for PT. Pain Numeric Pain Scale: 0-No Pain Location: No Pain Reported Mental Status Patient Orientation: Normal For Age Attachments: Chest Tube, Oxygen, IV Transfers Functional [place] Measure 0=Not Assessed/NA 4=Minimal Assistance 1=Total Assistance 5=Supervision or Setup 2=Maximal Assistance 6=Modified [place] 3=Moderate Assistance 7=Complete IndependenceIRFPAI Quality Coding Scale 6 Independent with activity with or without an assistive device 5 Patient requires set up or clean up by helper. Patient completes activity by themselves 4 Supervision or touching assist (CGA). [place] provide cues , steadying assist 3 The helper provides less than half the effort to complete the activity 2 The helper provides more than half the effort to complete the activity 1 Dependent. The helper does all the effort to complete an activity 7 Patient refused to complete or attempt activity 9 The patient did not perform the activity before the current illness or injury 88 Not attempted due to Medical conditions or safety concerns Transfers (B, C, W/C) (FIM): 5 Scootin Rollin Supine to/from Sit: 5 Sit to/from Stand: 5 Weight Bearing Right Lower Extremity: Right Full Weight Bearing Left Lower Extremity: Left Full Weight Bearing Gait Training Gait (FIM): 2 Distance (FIM): 7=294-83 ft Distance: 125' Gait Level of Assist: 4 Gait Persons Needed: 1 Gait Assistive Device: FWW Assessment Pt was able to ambulate with a FWW for 100' requiring CGA. Patient stated he was wanted to return to room when he started experiencing fatigue with ambulation. Patient requires time to complete all functional tasks due to SOA and fatigue. Patient SAO2 decreases to 91% on 4L NC with activity with quick recovery. PT Short Term Goals Short Term Goals Time Frame: Jun 06, 2018 Transfers (B,C,W/C) (FIM): 5 Gait (FIM): 2 Gait Distance Comment: 50' Gait Level of Assist: 5 Gait Assistive Device: FWW PT Plan Problem List Problem List: Activity Tolerance, Functional Strength, Safety, Balance, Gait, Transfer Treatment/Plan Treatment Plan: Continue Plan of Care Treatment Plan: Bed Mobility, Education, Functional Activity Sissy, Functional Strength, Gait, Safety, Therapeutic Exercise, Transfers Treatment Duration: Jun 06, 2018 Frequency: 6 times per week Estimated Hrs Per Day: .25 hour per day (15-30') Patient and/or Family Agrees t: Yes Time/GCodes Time In: 838 Time Out: 901 Total Billed Treatment Time: 23 Total Billed Treatment 1 visit FA x 2 23' JENA STEINER PT Jun 02, 2018 09:40
--- NOTE | 2018-06-02 16:05 | Diagnostic Imaging Report ---
INDICATION: Dyspnea. COMPARISON: Comparison made with prior examination 06/02/18. FINDINGS: There is a diffuse infiltrate in the right lung as well as a left basilar infiltrate. There is cardiomegaly with some central pulmonary venous congestion. There is no pneumothorax. Mediastinum is unremarkable. The left thoracostomy tube has been removed. There may be a small left pleural effusion. IMPRESSION: 1. Bilateral infiltrates right greater than left. 2. Cardiomegaly with some central pulmonary venous congestion with a small left pleural effusion. Dictated by: Dictated on workstation # [id number]
[2018-06-02] MEDS: CALCIUM CARBONATE 500 MG (TUMS) TAB.CHEW PO PRN (21:21)
--- NOTE | 2018-06-02 21:33 | Progress Note ---
Subjective Date Seen by a Provider: Jun 02, 2018 Time Seen by a Provider: 08:30 Subjective/Events-last exam Patient not much better than last couple days he says. Still with some shortness of breath. Not wanting to try and increase activity. Has been refusing physical therapy. Passing flatus, had small bowel movement the other day. Chest tube non pneumothorax and is clamped. Had no air leak on water seal. Objective Exam Vital Signs Date Time Temp Pulse Resp B/P (MAP) Pulse Ox O2 Delivery O2 Flow Rate FiO2 06/02/18 18:25 92 Nasal Cannula 3.00 06/02/18 18:00 118 26 175/101 (125) 94 Nasal Cannula 3.00 06/02/18 17:00 112 22 128/78 (95) 100 Nasal Cannula 3.00 06/02/18 16:00 123 20 105/84 (91) 97 Nasal Cannula 3.00 06/02/18 15:39 Nasal Cannula 3.00 06/02/18 15:37 Nasal Cannula 3.00 06/02/18 15:00 113 20 168/107 (127) 93 Nasal Cannula 3.00 06/02/18 14:00 109 21 120/90 (100) 100 Nasal Cannula 3.00 06/02/18 13:00 115 06/02/18 13:00 116 22 141/89 (106) 95 Nasal Cannula 3.00 06/02/18 12:00 Nasal Cannula 3.00 06/02/18 12:00 116 31 124/92 (103) 93 Nasal Cannula 3.00 06/02/18 11:00 112 20 131/93 (106) 100 Nasal Cannula 3.00 06/02/18 10:14 112 32 06/02/18 10:06 92 Nasal Cannula 3.00 06/02/18 10:00 111 36 147/96 (113) 100 Nasal Cannula 3.00 06/02/18 09:00 116 17 131/87 (102) 95 Nasal Cannula 3.00 06/02/18 08:00 Nasal Cannula 4.00 06/02/18 08:00 110 17 166/90 (115) 99 Nasal Cannula 3.00 06/02/18 07:00 99 Nasal Cannula 3.00 06/02/18 07:00 113 16 129/95 (106) 100 Nasal Cannula 3.00 06/02/18 07:00 116 06/02/18 06:00 108 16 142/83 (102) 100 Nasal Cannula 3.00 06/02/18 05:00 112 20 147/89 (108) 99 Nasal Cannula 3.00 06/02/18 04:00 98.5 06/02/18 04:00 106 12 128/84 (99) 96 Nasal Cannula 3.00 06/02/18 04:00 Nasal Cannula 3.00 06/02/18 03:00 112 19 150/99 (116) 96 Nasal Cannula 3.00 06/02/18 02:51 100 Nasal Cannula 4.00 06/02/18 02:30 113 14 147/99 (115) 95 Nasal Cannula 4.00 06/02/18 02:00 106 15 116/85 (95) 97 Nasal Cannula 5.00 06/02/18 01:00 112 06/02/18 01:00 112 19 145/91 (109) 93 Nasal Cannula 5.00 06/02/18 00:41 114 17 124/75 (91) 90 Nasal Cannula 5.00 06/02/18 00:00 97.9 06/02/18 00:00 107 12 116/81 (93) 92 Nasal Cannula 4.00 06/02/18 00:00 Nasal Cannula 4.00 06/01/18 23:20 105 11 125/84 (98) 98 Nasal Cannula 4.00 06/01/18 23:01 98 Nasal Cannula 5.00 06/01/18 23:00 108 11 135/85 (102) 97 Nasal Cannula 5.00 06/01/18 22:00 108 13 127/79 (95) 91 Nasal Cannula 5.00 06/01/18 21:41 98.9 I & O 06/02/18 07:00 Intake Total 1420 ml Output Total 4080 ml Balance -2660 ml Capillary Refill : Less Than 3 Seconds General Appearance: No Apparent Distress, WD/WN HEENT: PERRL/EOMI Neck: Full Range of Motion Respiratory: No Accessory Muscle Use, No Respiratory Distress, Crackles Cardiovascular: Regular Rate, Rhythm, No Murmur Gastrointestinal: normal bowel sounds, non tender, soft, distended (minimal) Extremity: No Calf Tenderness, No Pedal Edema Neurologic/Psychiatric: Alert, Other (oriented to major details only) Skin: Normal Color Lymphatic: No Adenopathy Results Lab Laboratory Tests 06/02/18 03:06: White Blood Count 8.8, Red Blood Count 4.12L, Hemoglobin 13.1L, Hematocrit 39L, Mean Corpuscular Volume 95, Mean Corpuscular Hemoglobin 32, Mean Corpuscular Hemoglobin Concent 34, Red Cell Distribution Width 12.6, Platelet Count 258, Mean Platelet Volume 8.4, Neutrophils (%) (Auto) 66, Lymphocytes (%) (Auto) 14, Monocytes (%) (Auto) 18H, Eosinophils (%) (Auto) 2, Basophils (%) (Auto) 0, Neutrophils # (Auto) 5.8, Lymphocytes # (Auto) 1.2, Monocytes # (Auto) 1.6H, Eosinophils # (Auto) 0.1, Basophils # (Auto) 0.0, Sodium Level 130L, Potassium Level 3.2L, Chloride Level 93L, Carbon Dioxide Level 28, Anion Gap 9, Blood Urea Nitrogen 3L, Creatinine 0.74, Estimat Glomerular Filtration Rate > 60, BUN/ Creatinine Ratio 4, Glucose Level 134H, Calcium Level 8.2L, Phosphorus Level 2.4 , Magnesium Level 2.2 Microbiology 05/26/18 Blood Culture - Preliminary, Resulted No growth 05/27/18 Gram Stain - Final, Complete 05/27/18 Body Fluid Culture - Final, Complete No growth 05/29/18 Gram Stain - Final, Complete 05/29/18 Sputum Culture - Final, Complete No growth 05/26/18 Urine Culture - Final, Complete NO GROWTH Assessment/Plan Assessment/Plan Assessment/Plan left lung pneumonia with hydropneumothorax s/p CT placement and ileus. ambulate. CT clamped and Discussed with Dr. Matute, will likely DC later today. cytology per pleural effusion adenocarcinoma oncology consulted severe COPD encouraged to increase activity and work with physical therapy Clinical Quality Measures DVT/VTE Risk/Contraindication: Risk Factor Score Per Nursin RFS Level Per Nursing on Admit: 4+=Very High GEORGE TINOCO DO Jun 02, 2018 21:33
[2018-06-03] VITALS (23 sets, daily range): BP systolic 90–204; BP diastolic 62–113
[2018-06-03] MEDS: METOCLOPRAMIDE INJ 10 MG/2 ML (REGLAN) IVP SCH ×3 (02:21→13:02)
[2018-06-03] MEDS: morphine INJ 4 MG/ML 1 ML (VIAL/SYRINGE) IVP PRN ×2 (02:21→04:31)
[2018-06-03] MEDS ORDERED: NS IV 500 ML 500 ML ONE (02:26)
[2018-06-03] MEDS: RT-ALBUTEROL/IPRATROPIUM 3 ML (DUONEB) VIAL INH SCH ×5 (02:29→22:32)
[2018-06-03] MEDS ORDERED: NS IV 500 ML 500 ML IV SCH (02:45)
[2018-06-03] MEDS: CALCIUM CARBONATE 500 MG (TUMS) TAB.CHEW PO PRN (02:57)
[2018-06-03] MEDS: ONDANSETRON 4 MG/2 ML (SDV) Z0FRAN IV PRN (02:57)
[2018-06-03 03:58] LABS: BASOPHILS % (AUTO) 0 % (0-10); EOSINOPHILS # (AUTO) 0.1 10^3/uL (0.0-0.3); EOSINOPHILS % (AUTO) 1 % (0-10); HEMATOCRIT 40 % (40-54); HEMOGLOBIN 13.6 G/DL (13.3-17.7); LYMPHOCYTES # (AUTO) 0.7 X 10^3 (1.0-4.0); LYMPHOCYTES % (AUTO) 8 % (12-44); MEAN CORPUSCULAR HEMOGLOBIN 32 PG (25-34); MEAN CORPUSCULAR HGB CONC 34 G/DL (32-36); MEAN CORPUSCULAR VOLUME 93 FL (80-99); MEAN PLATELET VOLUME 8.8 FL (7.4-10.4); MONOCYTES # (AUTO) 1.2 X 10^3 (0.0-1.0); MONOCYTES % (AUTO) 13 % (0-12); NEUTROPHILS % (AUTO) 78 % (42-75); PLATELET COUNT 249 10^3/uL (130-400); RED BLOOD COUNT 4.31 10^6/uL (4.35-5.85); RED CELL DISTRIBUTION WIDTH 12.3 % (10.0-14.5); WHITE BLOOD COUNT 8.9 10^3/uL (4.3-11.0)
[2018-06-03 04:17] LABS: BUN/CREATININE RATIO 7; CALCIUM 8.8 MG/DL (8.5-10.1); CARBON DIOXIDE 27 MMOL/L (21-32); CHLORIDE 88 MMOL/L (98-107); CREATININE SERUM 0.69 MG/DL (0.60-1.30); GFR ESTIMATED > 60; GLUCOSE 134 MG/DL (70-105); MAGNESIUM 1.8 MG/DL (1.8-2.4); PHOSPHORUS 2.3 MG/DL (2.3-4.7); POTASSIUM 3.2 MMOL/L (3.6-5.0); SODIUM 131 MMOL/L (135-145)
[2018-06-03] MEDS: GABAPENTIN 100 MG (NEURONTIN) CAP PO SCH ×4 (04:31→20:31)
[2018-06-03] MEDS: PIPERACILLIN SODIUM/TAZOBACTAM 4.5 GM in NS (IVPB) 100 ML IV SCH ×2 (04:32→14:05)
--- NOTE | 2018-06-03 05:50 | Pulmonary Progress Note ---
Subjective Time Seen by a Provider: 06:03 Subjective/Events-last exam Pt walked yesterday with NC. Still no BM. currently he is lethargic from Morphine and Ativan. His Sp02 is 95% on NC. Sepsis Event Evaluation Height, Weight, BMI Height: 5'6.00" Weight: 156lbs. 8.0oz. [id number]; 25.2 BMI Method:Stated Exam Exam Vital Signs Date Time Temp Pulse Resp B/P (MAP) Pulse Ox O2 Delivery O2 Flow Rate FiO2 06/03/18 05:00 112 27 187/104 (131) 95 Nasal Cannula 3.00 06/03/18 04:00 113 24 179/104 (129) 97 Nasal Cannula 3.00 06/03/18 03:00 111 22 187/98 (127) 96 Nasal Cannula 3.00 06/03/18 02:29 100 Nasal Cannula 2.00 06/03/18 02:00 111 23 172/94 (120) 100 Nasal Cannula 3.00 06/03/18 01:00 112 20 143/93 (110) 100 Nasal Cannula 3.00 06/03/18 01:00 112 06/03/18 00:00 112 18 157/99 (118) 97 Nasal Cannula 3.00 06/03/18 00:00 Nasal Cannula 2.00 06/02/18 23:00 113 14 124/83 (97) 100 Nasal Cannula 3.00 06/02/18 22:18 100 Nasal Cannula 3.00 06/02/18 22:00 113 19 159/94 (115) 100 Nasal Cannula 3.00 06/02/18 21:00 120 30 153/98 (116) 100 Nasal Cannula 3.00 06/02/18 20:00 121 17 176/95 (122) 94 Nasal Cannula 3.00 06/02/18 20:00 Nasal Cannula 3.00 06/02/18 19:00 118 19 162/99 (120) 94 Nasal Cannula 3.00 06/02/18 19:00 117 06/02/18 18:25 92 Nasal Cannula 3.00 06/02/18 18:00 118 26 175/101 (125) 94 Nasal Cannula 3.00 06/02/18 17:00 112 22 128/78 (95) 100 Nasal Cannula 3.00 06/02/18 16:00 123 20 105/84 (91) 97 Nasal Cannula 3.00 06/02/18 15:39 Nasal Cannula 3.00 06/02/18 15:37 Nasal Cannula 3.00 06/02/18 15:00 113 20 168/107 (127) 93 Nasal Cannula 3.00 06/02/18 14:00 109 21 120/90 (100) 100 Nasal Cannula 3.00 06/02/18 13:00 115 06/02/18 13:00 116 22 141/89 (106) 95 Nasal Cannula 3.00 06/02/18 12:00 Nasal Cannula 3.00 06/02/18 12:00 116 31 124/92 (103) 93 Nasal Cannula 3.00 06/02/18 11:00 112 20 131/93 (106) 100 Nasal Cannula 3.00 06/02/18 10:14 112 32 06/02/18 10:06 92 Nasal Cannula 3.00 06/02/18 10:00 111 36 147/96 (113) 100 Nasal Cannula 3.00 06/02/18 09:00 116 17 131/87 (102) 95 Nasal Cannula 3.00 06/02/18 08:00 Nasal Cannula 4.00 06/02/18 08:00 110 17 166/90 (115) 99 Nasal Cannula 3.00 06/02/18 07:00 99 Nasal Cannula 3.00 06/02/18 07:00 113 16 129/95 (106) 100 Nasal Cannula 3.00 06/02/18 07:00 116 06/02/18 06:00 108 16 142/83 (102) 100 Nasal Cannula 3.00 I & O 06/03/18 07:00 Intake Total 925 ml Output Total 1740 ml Balance -815 ml Height & Weight Height: 5'6.00" Weight: 156lbs. 8.0oz. 70.555640ge; 25.2 BMI Method:Stated General Appearance: No Apparent Distress, WD/WN HEENT: PERRL/EOMI Neck: Full Range of Motion Respiratory: No Accessory Muscle Use, No Respiratory Distress, Crackles Cardiovascular: Regular Rate, Rhythm, No Murmur Capillary Refill: Less Than 3 Seconds Gastrointestinal: normal bowel sounds, non tender, soft, distended (minimal) Extremity: No Calf Tenderness, No Pedal Edema Neurologic/Psychiatric: Alert, Other (oriented to major details only) Skin: Normal Color Lymphatic: No Adenopathy Results Lab Laboratory Tests 06/02/18 03:06 06/03/18 03:23 Assessment/Plan Assessment/Plan S/P large left pleural effusion with opacification of left lung and mass/ compression effect r/o cancer -S/P chest tube -Will consider pleurodesis before pulling chest tube. 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 I am going to consult hospice for education. Pt's only family is a sister that he does not get a long with however he is requesting us to talk with her about his current condition. I discussed code status with patient and he is going to think about DNR vs Comfort care. Critical Care: Critically Ill Patient Time spent with patient (mins): 60 TYLER PAINTING DO Jun 03, 2018 05:50
[2018-06-03] MEDS ORDERED: POTASSIUM CL 10MEQ/50ML IVPB 50 ML IV SCH (07:00)
[2018-06-03] MEDS: NS W/KCL 20 MEQ/L 1,000 ML IV SCH ×2 (07:04→18:11)
[2018-06-03] MEDS: POTASSIUM CL 10MEQ/50ML IVPB 50 ML IV SCH ×7 (07:05→13:58)
[2018-06-03] MEDS: ENALAPRILAT 2.5 MG/2 ML (VASOTEC) VIAL IV PRN (07:06)
--- NOTE | 2018-06-03 07:28 | Progress Note-Hospitalist ---
Subjective HPI/CC On Admission Date Seen by Provider: Jun 03, 2018 Time Seen by Provider: 07:26 The patient is a 62-year-old white male who presented to the emergency room last night with complaints of shortness of breath. The patient reported that he had begun to note shortness of breath about 2 months ago and it has steadily gotten worse. He had at least 2 contacts with walk-in clinics and oral antibiotics were prescribed. This did not seem to help. He denied fever or chills. He stopped smoking during this period of time. He reports that he had about a 10-vpri-swce smoking history to that point. Workup in the emergency room showed a total whiteout of the left lung field with deviation of the trachea to the right. The air bronchogram showed at least patency of the very proximal portion of the left mainstem bronchus. He has no past history of heart disease. Subjective/Events-last exam Pt is sitting in bed and complains of SOB and feeling bloated. States passing gas but no BM. Objective Exam Vital Signs Vital Signs Date Time Temp Pulse Resp B/P (MAP) Pulse Ox O2 Delivery O2 Flow Rate FiO2 06/03/18 14:06 93 Nasal Cannula 1.00 06/03/18 12:00 97.8 06/03/18 09:00 118 32 165/99 (121) 06/02/18 10:14 32 Capillary Refill : Less Than 3 Seconds General Appearance: No Apparent Distress, WD/WN Respiratory: No Respiratory Distress, Decreased Breath Sounds Cardiovascular: Regular Rate, Rhythm, No Murmur Gastrointestinal: Abnormal Bowel Sounds (quiet), Distended; No Guarding Extremity: No Calf Tenderness, No Pedal Edema Neurologic/Psychiatric: Alert, Oriented x3 Results/Procedures Lab Laboratory Tests 06/03/18 03:23 Patient resulted labs reviewed. Imaging: Reviewed Imaging Report Assessment/Plan Assessment and Plan Assess & Plan/Chief Complaint Pleural Effusion Critical Care Critical Care: Critically Ill Patient Diagnosis/Problems Diagnosis/Problems (1) Pleural effusion associated with pulmonary infection Status: Acute Assessment & Plan: chest tube placed- management by Dr Matute Path back and showed malignant cells consistent with adenocarcinoma Discussed with patient on 06/02- he would like Dr Matute to discuss with his sister Will consult Oncology Cultures negative from fluid Repeat CT chest with contrast (2) Ileus Status: Acute Assessment & Plan: Continue lactulose and reglan Cont simethicone for gas Surgery consulted, appreciate recs Repeat CT abd/pelvis (3) Hyponatremia Status: Acute Assessment & Plan: Na 131 today Likely due to fluid overload status (4) Alcoholism Status: Chronic Assessment & Plan: Continue on ativan and Gabapentin for withdrawal CIWA protocol (5) Pneumonia Status: Acute Assessment & Plan: Continue on Zosyn Cultures negative Transition to orals when able to tolerate more PO Qualifiers: Pneumonia type: due to unspecified organism Laterality: left Lung location: unspecified part of lung Qualified Codes: J18.9 - Pneumonia, unspecified organism (6) Hypertension Status: Acute Assessment & Plan: Elevated this AM- will add nitro paste Qualifiers: Hypertension type: unspecified Qualified Codes: I10 - Essential (primary) hypertension (7) Lung cancer Assessment & Plan: malignant pleural effusion CT chest shows no mass cytology consistent with adenocarcinoma-lung primary Qualifiers: Laterality: unspecified laterality Lung location: unspecified part of lung Qualified Codes: C34.90 - Malignant neoplasm of unspecified part of unspecified bronchus or lung Clinical Quality Measures End of Life/Advance Care Plan: Advance Care discuss with: patient Plan: initiate discussion, clarifying prognosis, identified end-of-life goals Time spent on discussion(mins): 17 DVT/VTE Risk/Contraindication: Risk Factor Score Per Nursin RFS Level Per Nursing on Admit: 4+=Very High DANG ULLOA MD Jun 03, 2018 7:28 am
[2018-06-03] MEDS ORDERED: NITROGLYCERIN 2% OINT 1 GM UNIT DOSE PACKET TOP PRN (07:30)
[2018-06-03] MEDS: MAGNESIUM 1 GM/100 ML IVPB 100 ML IV SCH (08:17)
[2018-06-03] MEDS: KCL 20 MEQ TAB (K-DUR) PO SCH (08:18)
[2018-06-03] MEDS: MULTIVIT W/MINERALS TAB (THERAGRAN M) PO SCH (08:24)
--- NOTE | 2018-06-03 08:37 | Progress Note ---
Subjective Date Seen by a Provider: Jun 03, 2018 Time Seen by a Provider: 08:34 Subjective/Events-last exam feeling short of air slightly. ate some food last night and abdomen more distended. not having significant pain but uncomfortable. passing flatus, no bm since the other day he states. Objective Exam Vital Signs Date Time Temp Pulse Resp B/P (MAP) Pulse Ox O2 Delivery O2 Flow Rate FiO2 06/03/18 08:00 97.5 124 18 178/102 (127) 93 Nasal Cannula 1.00 06/03/18 06:20 93 Nasal Cannula 1.00 06/03/18 06:00 111 21 192/107 (135) 91 Nasal Cannula 3.00 06/03/18 05:00 112 27 187/104 (131) 95 Nasal Cannula 3.00 06/03/18 04:00 113 24 179/104 (129) 97 Nasal Cannula 3.00 06/03/18 04:00 Nasal Cannula 1.00 06/03/18 04:00 97.9 06/03/18 03:00 111 22 187/98 (127) 96 Nasal Cannula 3.00 06/03/18 02:29 100 Nasal Cannula 2.00 06/03/18 02:00 111 23 172/94 (120) 100 Nasal Cannula 3.00 06/03/18 01:00 112 20 143/93 (110) 100 Nasal Cannula 3.00 06/03/18 01:00 112 06/03/18 00:00 112 18 157/99 (118) 97 Nasal Cannula 3.00 06/03/18 00:00 Nasal Cannula 2.00 06/03/18 00:00 98.3 06/02/18 23:00 113 14 124/83 (97) 100 Nasal Cannula 3.00 06/02/18 22:18 100 Nasal Cannula 3.00 06/02/18 22:00 113 19 159/94 (115) 100 Nasal Cannula 3.00 06/02/18 21:00 120 30 153/98 (116) 100 Nasal Cannula 3.00 06/02/18 20:00 97.3 06/02/18 20:00 121 17 176/95 (122) 94 Nasal Cannula 3.00 06/02/18 20:00 Nasal Cannula 3.00 06/02/18 19:00 118 19 162/99 (120) 94 Nasal Cannula 3.00 06/02/18 19:00 117 06/02/18 18:25 92 Nasal Cannula 3.00 06/02/18 18:00 118 26 175/101 (125) 94 Nasal Cannula 3.00 06/02/18 17:00 112 22 128/78 (95) 100 Nasal Cannula 3.00 06/02/18 16:00 123 20 105/84 (91) 97 Nasal Cannula 3.00 06/02/18 15:39 Nasal Cannula 3.00 06/02/18 15:37 Nasal Cannula 3.00 06/02/18 15:00 113 20 168/107 (127) 93 Nasal Cannula 3.00 06/02/18 14:00 109 21 120/90 (100) 100 Nasal Cannula 3.00 06/02/18 13:00 115 06/02/18 13:00 116 22 141/89 (106) 95 Nasal Cannula 3.00 06/02/18 12:00 Nasal Cannula 3.00 06/02/18 12:00 116 31 124/92 (103) 93 Nasal Cannula 3.00 06/02/18 11:00 112 20 131/93 (106) 100 Nasal Cannula 3.00 06/02/18 10:14 112 32 06/02/18 10:06 92 Nasal Cannula 3.00 06/02/18 10:00 111 36 147/96 (113) 100 Nasal Cannula 3.00 06/02/18 09:00 116 17 131/87 (102) 95 Nasal Cannula 3.00 I & O 06/03/18 07:00 Intake Total 1075 ml Output Total 1865 ml Balance -790 ml Capillary Refill : Less Than 3 Seconds General Appearance: No Apparent Distress, WD/WN HEENT: PERRL/EOMI Neck: Full Range of Motion Respiratory: No Respiratory Distress, Decreased Breath Sounds Cardiovascular: Regular Rate, Rhythm, No Murmur Gastrointestinal: normal bowel sounds, non tender, soft, distended (more than yesterday) Extremity: No Calf Tenderness, No Pedal Edema Neurologic/Psychiatric: Alert, Oriented x3 Skin: Normal Color Lymphatic: No Adenopathy Results Lab Laboratory Tests 06/03/18 03:23: White Blood Count 8.9, Red Blood Count 4.31L, Hemoglobin 13.6, Hematocrit 40, Mean Corpuscular Volume 93, Mean Corpuscular Hemoglobin 32, Mean Corpuscular Hemoglobin Concent 34, Red Cell Distribution Width 12.3, Platelet Count 249, Mean Platelet Volume 8.8, Neutrophils (%) (Auto) 78H, Lymphocytes (%) (Auto) 8L , Monocytes (%) (Auto) 13H, Eosinophils (%) (Auto) 1, Basophils (%) (Auto) 0, Neutrophils # (Auto) 7.0, Lymphocytes # (Auto) 0.7L, Monocytes # (Auto) 1.2H, Eosinophils # (Auto) 0.1, Basophils # (Auto) 0.0, Sodium Level 131L, Potassium Level 3.2L, Chloride Level 88L, Carbon Dioxide Level 27, Anion Gap 16H, Blood Urea Nitrogen 5L, Creatinine 0.69, Estimat Glomerular Filtration Rate > 60, BUN/ Creatinine Ratio 7, Glucose Level 134H, Calcium Level 8.8, Phosphorus Level 2.3 , Magnesium Level 1.8 06/03/18 03:53: Microbiology 05/26/18 Blood Culture - Preliminary, Resulted No growth 05/27/18 Gram Stain - Final, Complete 05/27/18 Body Fluid Culture - Final, Complete No growth 05/29/18 Gram Stain - Final, Complete 05/29/18 Sputum Culture - Final, Complete No growth 05/26/18 Urine Culture - Final, Complete NO GROWTH Assessment/Plan Assessment/Plan Assessment/Plan left lung pneumonia with hydropneumothorax s/p CT placement and ileus. ambulate. cytology per pleural effusion adenocarcinoma oncology consulted severe COPD encouraged to increase activity and work with physical therapy abdomen more distended recomended ng tube to liws which patient is okay with at this time ct scan abdomen and pelvis with oral contrast to further evaluate Clinical Quality Measures DVT/VTE Risk/Contraindication: Risk Factor Score Per Nursin RFS Level Per Nursing on Admit: 4+=Very High GEORGE TINOCO DO Jun 03, 2018 08:37
[2018-06-03] MEDS ORDERED: meTOprolol TARTRATE 25 MG (LOPRESSOR) TABLET PO SCH (09:00)
[2018-06-03] MEDS ORDERED: RECEIVED CONTRAST (Hold Metformin) IV SCH (10:30)
[2018-06-03] MEDS ORDERED: IOHEXOL 350 MG/ML 100 ML (OMNIPAQUE 350) VIAL IV ONE (10:30)
[2018-06-03] MEDS ORDERED: NS 250 ML (IVPB) BAG IV ONE (10:30)
--- NOTE | 2018-06-03 10:37 | Diagnostic Imaging Report ---
Portable erect AP chest at 3:08. Indication: Respiratory distress. The diffuse alveolar/interstitial pulmonary infiltrates throughout the right lung seen on the prior exam of 06/02/2018 is again evident and no different. However the atelectasis/infiltrate and fluid in the left lung base noted previously is perhaps somewhat less prominent. The pneumothorax component of the hydropneumothorax seen on the previous exam may be slightly larger. The heart itself is stable. The mediastinum is not widened and there is no shift of the midline. The osseous structures are intact. There is persistent distention of much of the colon by gas. Impression: There are mixed results. The left lung base does seem somewhat better aerated but the pneumothorax component of the hydropneumothorax on the left is perhaps slightly greater. A followup study would be recommended for continued evaluation. Dictated by: Dictated on workstation # [id number]
[2018-06-03] MEDS: DOCUSATE SODIUM 100 MG (COLACE) CAP PO SCH ×2 (11:57→20:30)
[2018-06-03] MEDS: FOLIC ACID 1 MG TAB PO SCH (11:58)
[2018-06-03] MEDS: LACTULOSE SYRUP 10GM/15ML (ENULOSE) 30ML UDC PO SCH ×2 (11:58→20:31)
[2018-06-03] MEDS: LORazepam INJ 2 MG/ML (ATIVAN) VIAL IVP PRN ×3 (12:06→22:33)
--- NOTE | 2018-06-03 12:30 | Diagnostic Imaging Report ---
PROCEDURE: CT chest, abdomen, and pelvis with contrast. TECHNIQUE: Multiple contiguous axial images were obtained through the chest, abdomen, and pelvis after the administration of intravenous contrast. INDICATION: Abdominal distention. FINDINGS: The previous CT abdomen/pelvis exam of 05/30/2018 noted that there was marked distention of the stomach by fluid. There were also numerous dilated fluid-filled segments of small bowel present as well as a fair amount of gas in both the large and small bowel. In the interval since the prior exam, a nasogastric tube has been inserted. The tip of the tube is just into the stomach. However, the stomach remains markedly distended by gas, fluid, and particulate matter. There is also persistent distention of the small bowel by fluid and there is perhaps even greater distention of the colon by gas than noted on the prior exam. There is still no sign of pneumoperitoneum. There is no mass or abscess visualized. The previous exam also noted a hydropneumothorax on the left. On this study, the pneumothorax component of the hydropneumothorax is somewhat greater. The left-sided chest tube noted on the prior exam has been removed. The density in the left lung base noted on the prior exam has increased, however. Also, there is now a 3.9 x 5.6 cm air-fluid level in the left midlung. This was present on the prior exam at which time it measured 4.0 x 4.3 cm. This may represent an infected bulla. There has also been some increase in the atelectasis/infiltrate and fluid involving the right lung. The heart itself is stable. Coronary artery calcifications are again noted. The aorta is not abnormally dilated and there is no sign of dissection. The pulmonary arteries are not fully opacified but there is no defect to suggest pulmonary embolus. There is no new mediastinal or hilar adenopathy. The subcutaneous emphysema along the left thorax seen on the prior exam has decreased. The osseous structures are intact. There is no sign of an acute bony abnormality. IMPRESSION: 1. In the interval since the previous exam of 05/30/2018, an NG line has been inserted. The tip of the line is in the stomach but the stomach remains markedly distended by gas, fluid, and particulate matter. There are also persistent dilated gas and fluid-filled segments of small bowel and the amount of gas within the colon has actually increased somewhat since the prior study. These findings may be secondary to severe ileus. The possibility that there is a distal small bowel obstruction should still be considered. If further evaluation is desired, then a contrast small bowel exam would be recommended. 2. The left-sided chest tube noted previously has been removed. The pneumothorax component of the hydropneumothorax on the left is somewhat greater on this exam and there does appear to be greater involvement of both lungs by pneumonia/atelectasis. There is also what appears to be an infected bulla in the left lower lobe. There is no acute cardiopulmonary abnormality noted, otherwise. 3. These results were called to Dr. Jodee Be. Dictated by: Dictated on workstation # [id number]
--- NOTE | 2018-06-03 13:41 | Physical Therapy Daily Note ---
PT Daily Note-Current Subjective Patient awake in bed watching tv when PT arrived. Pt agreed to get up and walk for PT. Pain Numeric Pain Scale: 0-No Pain Location: No Pain Reported Mental Status Patient Orientation: Mumbles, Normal For Age Attachments: Oxygen, Rico Catheter, IV Transfers Functional [place] Measure 0=Not Assessed/NA 4=Minimal Assistance 1=Total Assistance 5=Supervision or Setup 2=Maximal Assistance 6=Modified [place] 3=Moderate Assistance 7=Complete IndependenceIRFPAI Quality Coding Scale 6 Independent with activity with or without an assistive device 5 Patient requires set up or clean up by helper. Patient completes activity by themselves 4 Supervision or touching assist (CGA). [place] provide cues , steadying assist 3 The helper provides less than half the effort to complete the activity 2 The helper provides more than half the effort to complete the activity 1 Dependent. The helper does all the effort to complete an activity 7 Patient refused to complete or attempt activity 9 The patient did not perform the activity before the current illness or injury 88 Not attempted due to Medical conditions or safety concerns Transfers (B, C, W/C) (FIM): 4 Scootin Rollin Supine to/from Sit: 5 Sit to/from Stand: 4 Weight Bearing Right Lower Extremity: Right Full Weight Bearing Left Lower Extremity: Left Full Weight Bearing Gait Training Gait (FIM): 2 Distance (FIM): 9=145-96 ft Distance: 125' Gait Level of Assist: 4 Gait Persons Needed: 1 Gait Assistive Device: FWW Assessment Pt was able to ambulate for 125' with a FWW requiring CGA. Patient reported he felt nauseous as he was ambulating. Pt returned to room and sat in recliner next to his bed. Pt will continue to benefit from ambulation to maintain current strength for functional demands. PT Short Term Goals Short Term Goals Time Frame: Jun 06, 2018 Transfers (B,C,W/C) (FIM): 5 Gait (FIM): 2 Gait Distance Comment: 50' Gait Level of Assist: 5 Gait Assistive Device: FWW PT Plan Problem List Problem List: Activity Tolerance, Functional Strength, Safety, Balance, Gait, Transfer, Bed Mobility Treatment/Plan Treatment Plan: Continue Plan of Care Treatment Plan: Bed Mobility, Education, Functional Activity Sissy, Functional Strength, Gait, Safety, Therapeutic Exercise, Transfers Treatment Duration: Jun 06, 2018 Frequency: 6 times per week Estimated Hrs Per Day: .25 hour per day (15-30') Patient and/or Family Agrees t: Yes Time/GCodes Time In: 1255 Time Out: 1310 Total Billed Treatment Time: 15 Total Billed Treatment 1 visit FA - 15' JENA STEINER PT Jun 03, 2018 13:41
[2018-06-03] MEDS: TAMSULOSIN 0.4 MG (FLOMAX) CAP PO SCH (19:07)
[2018-06-03] MEDS ORDERED: meTOprolol 5 MG/5 ML (LOPRESSOR) VIAL ONE (20:21)
[2018-06-03] MEDS: meTOprolol 5 MG/5 ML (LOPRESSOR) VIAL IV SCH (20:30)
[2018-06-04] VITALS (24 sets, daily range): BP systolic 127–183; BP diastolic 61–100
--- NOTE | 2018-06-04 01:07 | CONSULTATION REPORT ---
DATE OF SERVICE: 06/03/2018 REFERRING PHYSICIAN: Jodee Be MD The patient is admitted to ICU bed 7. IMPRESSION: 1. A 62-year-old male brought to the emergency room with a significant shortness of breath and productive cough. He was seen at an urgent care two weeks prior to this admission and treated with doxycycline and prednisone with no improvement in symptoms. 2. Complete opacification of left lung with large pleural effusion at the time of initial evaluation, status post chest tube placement for diagnostic and therapeutic thoracentesis. Left hydropneumothorax following the procedure. 3. 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 4. Severe ileus by CT scan. Rule out distal small-bowel obstruction. RECOMMENDATIONS: 1. Continue management of the ileus and left hydropneumothorax as you are doing. 2. Agree with banking services advisor consult because of poor social support system. 3. Once the patient is stable from medical standpoint, he will need full staging studies and we will discuss about further treatment options at that point. The molecular studies as well as PD-L1 testing is pending at this point. BRIEF HISTORY: The patient is a 62-year-old male who was brought to the hospital by his roommate with increasing shortness of breath and weakness. He has had cough and shortness of breath for few weeks and was seen at an urgent care two weeks ago with a course of antibiotics and steroids, which did not help. As he was getting worse clinically, he was brought to the emergency room for evaluation and admitted. He was noted to have whiteout of left lung because of pleural effusion and underwent urgent diagnostic and therapeutic thoracentesis as well as chest tube placement. He is noted to have hydropneumothorax following this and also has significant ileus since the time of admission. PAST MEDICAL HISTORY: Unremarkable as he has not had followups with physicians. SOCIAL HISTORY: The patient is never and has no children. He is living in [place], sharing a room with the roommate. The only close family is a sister who lives in [place], but the patient and his sister is not in good terms and does not have significant contact. He previously worked at [employer] at [place], [place] for 23 years until the company shut down. He gives significant history of exposure to asbestos while working there. 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 He has approximately [id number] history of tobacco use, smoking one and a half packs of cigarettes daily for the past 40+ years. He uses alcohol, mostly beer on a regular basis. Denied any recreational drug use. FAMILY HISTORY: Unremarkable and he denied any major problems that he knows of. PHYSICAL EXAMINATION: GENERAL: Today showed an elderly male, weak appearing, awake and answering questions fairly, in mild distress due to shortness of breath and pain. VITAL SIGNS: Temperature was 98.2, pulse rate 123, respirations 20, blood pressure 90/62, oxygen saturation was 95% on 1 liter of oxygen by nasal cannula. HEENT: Normocephalic, extraocular muscles intact, conjunctivae pink, oral mucosa slightly dry. NECK: Supple with no JVD. No cervical, supraclavicular or axillary lymphadenopathy palpable. CHEST: Symmetrical. LUNGS: With diminished breath sounds on the left side. Few rhonchi and scattered wheezes were heard bilaterally. CARDIOVASCULAR: Tachycardic, regular with no murmurs or gallops. ABDOMEN: Distended, soft with absent bowel sounds. No hepatosplenomegaly or other masses palpable. Mild diffuse tenderness on palpation without rebound. EXTREMITIES: Showed no edema. NEUROLOGICAL: Showed no focal motor deficits. LABORATORY DATA: CBC done today showed WBC 8.9, hemoglobin 13.6, platelet count 249,000 with neutrophil count 7.0 and lymphocyte count 0.7 as well as monocyte count 1.2. BMP done today showed sodium 131, potassium 3.2 and chloride 88. BUN was 5 and creatinine 0.69 with GFR more than 60 mL per minute. Glucose was 134. Magnesium 1.8. CMP done on 05/26/2018 showed total bilirubin of 1.7 with rest of the liver function studies within normal limits. CT scan of the chest, abdomen and pelvis done today showed since the previous examination on 05/30/2018. An NG tube has been inserted into the stomach with the tip in the stomach. The stomach remains markedly distended by gas, fluid and particulate matter. Persistent dilated gas and fluid filled segments of small bowel and the amount of gas within the colon has actually increased since the previous study. It is felt to be secondary to severe ileus, although the possibility of a distal small-bowel obstruction was also possible. Left-sided chest tube noted previously has been removed. Pneumothorax component of the hydropneumothorax on the left is somewhat greater on this exam and there is greater involvement of both lungs by pneumonia/atelectasis. There appears to be an infected bulla in the left lower lobe. Thank you for allowing me to participate in this patient's care. I will follow the patient with you. Job ID: [id number] DocumentID: [id number] Dictated Date: 06/03/2018 18:57:29 Armature Inspector Date: 06/03/2018 23:07:52 Dictated By: FABIO DE LA TORRE MD [facility]
[2018-06-04] MEDS: RT-ALBUTEROL/IPRATROPIUM 3 ML (DUONEB) VIAL INH SCH ×7 (02:29→22:12)
[2018-06-04] MEDS: meTOprolol 5 MG/5 ML (LOPRESSOR) VIAL IV SCH ×4 (03:26→22:17)
[2018-06-04] MEDS: NS W/KCL 20 MEQ/L 1,000 ML IV SCH ×3 (03:27→20:24)
[2018-06-04] MEDS: GABAPENTIN 100 MG (NEURONTIN) CAP PO SCH ×4 (03:27→22:18)
[2018-06-04 04:03] LABS: BASOPHILS % (AUTO) 0 % (0-10); EOSINOPHILS % (AUTO) 0 % (0-10); HEMATOCRIT 39 % (40-54); HEMOGLOBIN 12.9 G/DL (13.3-17.7); LYMPHOCYTES # (AUTO) 0.8 X 10^3 (1.0-4.0); LYMPHOCYTES % (AUTO) 6 % (12-44); MEAN CORPUSCULAR HEMOGLOBIN 32 PG (25-34); MEAN CORPUSCULAR HGB CONC 33 G/DL (32-36); MEAN CORPUSCULAR VOLUME 96 FL (80-99); MEAN PLATELET VOLUME 8.6 FL (7.4-10.4); MONOCYTES # (AUTO) 1.8 X 10^3 (0.0-1.0); MONOCYTES % (AUTO) 13 % (0-12); NEUTROPHILS # (AUTO) 10.9 X 10^3 (1.8-7.8); NEUTROPHILS % (AUTO) 81 % (42-75); PLATELET COUNT 306 10^3/uL (130-400); RED BLOOD COUNT 4.03 10^6/uL (4.35-5.85); RED CELL DISTRIBUTION WIDTH 12.5 % (10.0-14.5); WHITE BLOOD COUNT 13.5 10^3/uL (4.3-11.0)
[2018-06-04 04:15] LABS: BUN/CREATININE RATIO 11; CALCIUM 8.7 MG/DL (8.5-10.1); CARBON DIOXIDE 34 MMOL/L (21-32); CHLORIDE 94 MMOL/L (98-107); CREATININE SERUM 0.72 MG/DL (0.60-1.30); GFR ESTIMATED > 60; GLUCOSE 127 MG/DL (70-105); MAGNESIUM 1.9 MG/DL (1.8-2.4); PHOSPHORUS 2.5 MG/DL (2.3-4.7); POTASSIUM 4.2 MMOL/L (3.6-5.0); SODIUM 137 MMOL/L (135-145)
[2018-06-04] MEDS: POTASSIUM CL 10MEQ/50ML IVPB 50 ML IV SCH (05:45)
[2018-06-04] MEDS: KCL 20 MEQ TAB (K-DUR) PO SCH (05:45)
[2018-06-04] MEDS: MAGNESIUM 1 GM/100 ML IVPB 100 ML IV SCH (05:45)
[2018-06-04] MEDS: MULTIVIT W/MINERALS TAB (THERAGRAN M) PO SCH (06:50)
--- NOTE | 2018-06-04 08:04 | Diagnostic Imaging Report ---
Indication: Shortness of breath Exam: Portable chest at 2:54 AM Findings: There is an NG tube in the stomach. There is an interstitial infiltrate in the right lung. There are large bullae in the left lung. There is left basilar consolidation. Impression: Left basilar consolidation. Large bullae in the left upper lung. Interstitial infiltrate in the right lung. No appreciable change as compared to previous day. Dictated by: Dictated on workstation # [id number]
[2018-06-04] MEDS: DOCUSATE SODIUM 100 MG (COLACE) CAP PO SCH ×2 (08:05→22:18)
[2018-06-04] MEDS: LACTULOSE SYRUP 10GM/15ML (ENULOSE) 30ML UDC PO SCH ×2 (08:05→22:17)
[2018-06-04] MEDS: FOLIC ACID 1 MG TAB PO SCH (08:06)
[2018-06-04] MEDS: NICOTINE 14 MG (NICODERM) PATCH TD SCH (08:19)
--- NOTE | 2018-06-04 08:31 | Physical Therapy Daily Note ---
PT Daily Note-Current Subjective Pt states he does not need PT, but with encouragement was willing to participate some, but refusing to walk. Pain Comment: Pt stating he is in pain "all over" but no pain rating given Appearance Pt asleep in bed with bed alarm upon arrival. pt supine in bed with bed alarm and nsg present at end of session Mental Status Patient Orientation: Person Transfers Functional [place] Measure 0=Not Assessed/NA 4=Minimal Assistance 1=Total Assistance 5=Supervision or Setup 2=Maximal Assistance 6=Modified [place] 3=Moderate Assistance 7=Complete IndependenceIRFPAI Quality Coding Scale 6 Independent with activity with or without an assistive device 5 Patient requires set up or clean up by helper. Patient completes activity by themselves 4 Supervision or touching assist (CGA). [place] provide cues , steadying assist 3 The helper provides less than half the effort to complete the activity 2 The helper provides more than half the effort to complete the activity 1 Dependent. The helper does all the effort to complete an activity 7 Patient refused to complete or attempt activity 9 The patient did not perform the activity before the current illness or injury 88 Not attempted due to Medical conditions or safety concerns Transfers (B, C, W/C) (FIM): 4 Scootin Rollin Supine to/from Sit: 4 Sit to/from Stand: 4 CGA supine to/from sit to/from stand. Verb inst for safety and hand placement during transitions. Uncontrolled descent during stand to sit Weight Bearing Right Lower Extremity: Right Full Weight Bearing Left Lower Extremity: Left Full Weight Bearing Exercises Supine Ex: Ankle pumps, Heel Slides, Straight leg raise Supine Reps: 10 Seated Therapy Exercises: Ankle pumps, Long arc quads Seated Reps: 10 Standing: Heel/toe raises, Marching, Mini squats, Sit to Stand Standing Reps: 5 Treatments Tx, Ex Assessment pt limiting self on what he would perform with PT today PT Short Term Goals Short Term Goals Time Frame: Jun 06, 2018 Transfers (B,C,W/C) (FIM): 5 Gait (FIM): 2 Gait Distance Comment: 50' Gait Level of Assist: 5 Gait Assistive Device: FWW PT Plan Problem List Problem List: Activity Tolerance, Functional Strength, Safety, Balance, Gait, Transfer, Bed Mobility Treatment/Plan Treatment Plan: Continue Plan of Care Treatment Plan: Bed Mobility, Education, Functional Activity Sissy, Functional Strength, Gait, Safety, Therapeutic Exercise, Transfers Treatment Duration: Jun 06, 2018 Frequency: 6 times per week Estimated Hrs Per Day: .25 hour per day (15-30') Patient and/or Family Agrees t: Yes Safety Risks/Education Patient Education: Transfer Techniques, Safety Issues Teaching Recipient: Patient Teaching Methods: Demonstration, Discussion Response to Teaching: Verbalize Understanding, Return Demonstration, Reinforcement Needed Discharge Recommendations Plan Cont per POC to achieve goals Time/GCodes Time In: 807 Time Out: 823 Total Billed Treatment Time: 26 Total Billed Treatment 1 Visit FA 26 min KATELYNN ALBA LINEN GRADER Jun 04, 2018 08:31
[2018-06-04] MEDS ORDERED: DIATRIZOATE MEGLUM/SODIUM 37% 120 ML (GASTROGRAFIN) NG ONE (09:15)
--- NOTE | 2018-06-04 10:07 | Progress Note ---
Subjective Date Seen by a Provider: Jun 04, 2018 Time Seen by a Provider: 10:04 Subjective/Events-last exam Patient breathing about the same. Patient states he is passing some flatus. His NG tube in which his abdomen is less distended. No new complaints. Denies any nausea vomiting fever sweats chills or chest pain. Patient for small bowel follow-through today. Objective Exam Vital Signs Date Time Temp Pulse Resp B/P (MAP) Pulse Ox O2 Delivery O2 Flow Rate FiO2 06/04/18 09:00 107 128/94 (105) 97 Nasal Cannula 2.00 06/04/18 08:00 98.1 119 18 183/100 (127) 91 Nasal Cannula 2.00 06/04/18 08:00 Nasal Cannula 2.00 06/04/18 07:00 112 06/04/18 07:00 112 16 135/80 (98) 97 Nasal Cannula 2.00 06/04/18 06:00 110 20 141/91 (108) 97 Nasal Cannula 2.00 06/04/18 05:00 109 20 149/84 (105) 95 Nasal Cannula 2.00 06/04/18 04:00 93 Nasal Cannula 2.00 06/04/18 04:00 97.8 06/04/18 04:00 106 11 127/63 (84) 95 Nasal Cannula 2.00 06/04/18 03:00 119 21 157/80 (105) 92 Nasal Cannula 2.00 06/04/18 02:30 95 Nasal Cannula 2.00 06/04/18 02:00 116 31 127/61 (83) 96 Nasal Cannula 2.00 06/04/18 01:00 118 06/04/18 01:00 118 24 148/91 (110) 90 Nasal Cannula 2.00 06/04/18 00:00 96 Nasal Cannula 2.00 06/04/18 00:00 97.9 117 15 138/68 (91) 93 Nasal Cannula 2.00 06/03/18 23:00 120 11 158/76 (103) 93 Nasal Cannula 2.00 06/03/18 22:32 91 Nasal Cannula 2.00 06/03/18 22:00 116 23 165/69 (101) 99 Nasal Cannula 2.00 06/03/18 21:00 106 20 131/91 (104) 96 Nasal Cannula 2.00 06/03/18 20:00 96 Nasal Cannula 2.00 06/03/18 20:00 124 21 134/83 (100) 99 Nasal Cannula 2.00 06/03/18 20:00 97.9 06/03/18 19:00 126 27 147/84 (105) 95 Nasal Cannula 1.00 06/03/18 19:00 126 06/03/18 18:33 94 Nasal Cannula 1.00 06/03/18 18:00 123 20 90/62 (71) 95 Nasal Cannula 1.00 06/03/18 17:00 125 39 143/87 (105) 95 Nasal Cannula 1.00 06/03/18 16:02 98.2 06/03/18 16:00 124 25 137/82 (100) 88 Nasal Cannula 1.00 06/03/18 16:00 Nasal Cannula 1.00 06/03/18 15:00 122 18 112/74 (87) 96 Nasal Cannula 1.00 06/03/18 14:06 93 Nasal Cannula 1.00 06/03/18 13:00 120 121/74 (90) Nasal Cannula 1.00 06/03/18 13:00 117 06/03/18 12:00 121 43 152/93 (112) 86 Nasal Cannula 1.00 06/03/18 12:00 97.8 06/03/18 12:00 Nasal Cannula 1.00 06/03/18 11:00 122 27 157/94 (115) 88 Nasal Cannula 1.00 I & O 06/04/18 07:00 Intake Total 3920 ml Output Total 4770 ml Balance -850 ml Capillary Refill : Less Than 3 Seconds General Appearance: No Apparent Distress, WD/WN HEENT: PERRL/EOMI Neck: Full Range of Motion Respiratory: No Respiratory Distress, Decreased Breath Sounds Cardiovascular: Regular Rate, Rhythm, No Murmur Gastrointestinal: normal bowel sounds, non tender, soft, distended (Less) Extremity: No Calf Tenderness, No Pedal Edema Neurologic/Psychiatric: Alert, Oriented x3 Skin: Normal Color Lymphatic: No Adenopathy Results Lab Laboratory Tests 06/04/18 03:30: White Blood Count 13.5H, Red Blood Count 4.03L, Hemoglobin 12.9L, Hematocrit 39L , Mean Corpuscular Volume 96, Mean Corpuscular Hemoglobin 32, Mean Corpuscular Hemoglobin Concent 33, Red Cell Distribution Width 12.5, Platelet Count 306, Mean Platelet Volume 8.6, Neutrophils (%) (Auto) 81H, Lymphocytes (%) (Auto) 6L , Monocytes (%) (Auto) 13H, Eosinophils (%) (Auto) 0, Basophils (%) (Auto) 0, Neutrophils # (Auto) 10.9H, Lymphocytes # (Auto) 0.8L, Monocytes # (Auto) 1.8H, Eosinophils # (Auto) 0.0, Basophils # (Auto) 0.0, Sodium Level 137, Potassium Level 4.2, Chloride Level 94L, Carbon Dioxide Level 34H, Anion Gap 9, Blood Urea Nitrogen 8, Creatinine 0.72, Estimat Glomerular Filtration Rate > 60, BUN/ Creatinine Ratio 11, Glucose Level 127H, Calcium Level 8.7, Phosphorus Level 2.5 , Magnesium Level 1.9 Microbiology 05/26/18 Blood Culture - Preliminary, Resulted No growth 05/27/18 Gram Stain - Final, Complete 05/27/18 Body Fluid Culture - Final, Complete No growth 05/29/18 Gram Stain - Final, Complete 05/29/18 Sputum Culture - Final, Complete No growth 05/26/18 Urine Culture - Final, Complete NO GROWTH Assessment/Plan Assessment/Plan Assessment/Plan left lung pneumonia with hydropneumothorax s/p CT placement and ileus. ambulate. cytology per pleural effusion adenocarcinoma oncology consulted severe COPD encouraged to increase activity and work with physical therapy CT scan reviewed and question if obstruction, we'll get a small bowel follow- through. Clinical Quality Measures DVT/VTE Risk/Contraindication: Risk Factor Score Per Nursin RFS Level Per Nursing on Admit: 4+=Very High GEORGE TINOCO DO Jun 04, 2018 10:07
--- NOTE | 2018-06-04 10:53 | Pulmonary Progress Note ---
Subjective Time Seen by a Provider: 10:53 Subjective/Events-last exam PT feels about the same as yesterday. Respiratory mortensen he is only requiring about 2 liters. Sepsis Event Evaluation Height, Weight, BMI Height: 5'6.00" Weight: 162lbs. 2.0oz. 73.107187sb; 25.2 BMI Method:Stated Exam Exam Vital Signs Date Time Temp Pulse Resp B/P (MAP) Pulse Ox O2 Delivery O2 Flow Rate FiO2 06/04/18 09:00 107 128/94 (105) 97 Nasal Cannula 2.00 06/04/18 08:00 98.1 119 18 183/100 (127) 91 Nasal Cannula 2.00 06/04/18 08:00 Nasal Cannula 2.00 06/04/18 07:00 112 06/04/18 07:00 112 16 135/80 (98) 97 Nasal Cannula 2.00 06/04/18 06:00 110 20 141/91 (108) 97 Nasal Cannula 2.00 06/04/18 05:00 109 20 149/84 (105) 95 Nasal Cannula 2.00 06/04/18 04:00 93 Nasal Cannula 2.00 06/04/18 04:00 97.8 06/04/18 04:00 106 11 127/63 (84) 95 Nasal Cannula 2.00 06/04/18 03:00 119 21 157/80 (105) 92 Nasal Cannula 2.00 06/04/18 02:30 95 Nasal Cannula 2.00 06/04/18 02:00 116 31 127/61 (83) 96 Nasal Cannula 2.00 06/04/18 01:00 118 06/04/18 01:00 118 24 148/91 (110) 90 Nasal Cannula 2.00 06/04/18 00:00 96 Nasal Cannula 2.00 06/04/18 00:00 97.9 117 15 138/68 (91) 93 Nasal Cannula 2.00 06/03/18 23:00 120 11 158/76 (103) 93 Nasal Cannula 2.00 06/03/18 22:32 91 Nasal Cannula 2.00 06/03/18 22:00 116 23 165/69 (101) 99 Nasal Cannula 2.00 06/03/18 21:00 106 20 131/91 (104) 96 Nasal Cannula 2.00 06/03/18 20:00 96 Nasal Cannula 2.00 06/03/18 20:00 124 21 134/83 (100) 99 Nasal Cannula 2.00 06/03/18 20:00 97.9 06/03/18 19:00 126 27 147/84 (105) 95 Nasal Cannula 1.00 06/03/18 19:00 126 06/03/18 18:33 94 Nasal Cannula 1.00 06/03/18 18:00 123 20 90/62 (71) 95 Nasal Cannula 1.00 06/03/18 17:00 125 39 143/87 (105) 95 Nasal Cannula 1.00 06/03/18 16:02 98.2 06/03/18 16:00 124 25 137/82 (100) 88 Nasal Cannula 1.00 06/03/18 16:00 Nasal Cannula 1.00 06/03/18 15:00 122 18 112/74 (87) 96 Nasal Cannula 1.00 06/03/18 14:06 93 Nasal Cannula 1.00 06/03/18 13:00 120 121/74 (90) Nasal Cannula 1.00 06/03/18 13:00 117 06/03/18 12:00 121 43 152/93 (112) 86 Nasal Cannula 1.00 06/03/18 12:00 97.8 06/03/18 12:00 Nasal Cannula 1.00 06/03/18 11:00 122 27 157/94 (115) 88 Nasal Cannula 1.00 I & O 06/04/18 07:00 Intake Total 3920 ml Output Total 4770 ml Balance -850 ml Height & Weight Height: 5'6.00" Weight: 162lbs. 2.0oz. 73.328745oh; 25.2 BMI Method:Stated General Appearance: WD/WN, Chronically ill, Mild Distress, Moderate Distress HEENT: PERRL/EOMI Neck: Full Range of Motion Respiratory: No Respiratory Distress, Decreased Breath Sounds Cardiovascular: Regular Rate, Rhythm, No Murmur Capillary Refill: Less Than 3 Seconds Gastrointestinal: normal bowel sounds, non tender, soft, distended (Less) Extremity: No Calf Tenderness, No Pedal Edema Neurologic/Psychiatric: Alert, Oriented x3 Skin: Normal Color Lymphatic: No Adenopathy Results Lab Laboratory Tests 06/03/18 03:23 06/04/18 03:30 Assessment/Plan Assessment/Plan S/P large left pleural effusion with opacification of left lung and mass/ compression effect r/o cancer -Doubt infection/lung abscess however will add Vanco and zosyn for PPX. -CT scan of chest reviewed no mass noted -Cytology from pleural fluid is positive for adenocarcinoma -Oncology is consulted PT has trapped lung - this is not a true PTX -I discussed with radiology Dr. Kang and he agrees -pt's SOB is stable on NC -Will continue to monitor -Continue Chest tube ILD with Pulmonary edema and pleural effusion -Secondary to trapped lung left pleural effusion will continue to reaccumulate. will monitor clinically Ileus vs SBO -Still no BM -surgery following -CA 19-9 is pending hyponatremia probably secondary to pulmonary disease and lung cancer Metabolic acidosis - improved -Monitor -IVF HTN urgency with sinus tach Start Lopressor and Vasotec PRN Hyponatremia - possibly SIADH from cancer tobacco use/marijuana use -education Pt's prognosis is very poor. PT has no chance of recovery. Pt's only family is a sister that he does not get a long with however he is requesting us to talk with her about his current condition. Dr. Be and I together discussed code status with patient once again and he is going to think about DNR vs Comfort care. Pt is refusing SVN treatments. Pt wants to be left alone however will not answer direct questions. We have contacted his sister upon his request however she does not want to be involved. Pt has no other family memebers. PT is not a candidate for mechanical ventilation. With his severe lung disease and trapped lung he would never come off vent. Pt has a malignant pleural left pleural effusion. He also has a probable small bowel obstruction and is not a candidate for surgery. Pt is too weak with multiple comorbidities and is not a candidate for chemotherapy. I have discussed with Dr. Be, Dr. Worthy and Dr. Hair they all agree patient should be at least a full DNR. Pt is clearly not able and not willing to make any medical decisions. After discussion with ethics and legal services professional. We will proceed with Making patient a full DNR today. If pt continues decline will move forward with Comfort Care Only. I am going to add morphine 2mg IV Q2PRN and Ativan 0.5-1mg IV Q4 for air hunger and agitation. Critical Care: Critically Ill Patient Time spent with patient (mins): 120 TYLER PAINTING DO Jun 04, 2018 10:53
[2018-06-04 13:23] LABS: ABG BASE EXCESS 11.6 MMOL/L (-2.5-2.5); ABG OXYGEN SATURATION 95 % (94-100); ABG PO2 74 MMHG (79-93); ABG TCO2 40.7 MMOL/L (21.0-31.0)
[2018-06-04 13:25] LABS: ABG PH 7.31 (7.37-7.43)
[2018-06-04 13:26] LABS: ABG PCO2 77 MMHG (35-45); ALLENS TEST POSITIVE; INSPIRED O2 6L; PATIENT TEMP 97.3; VENTILATOR NO
--- NOTE | 2018-06-04 13:55 | Progress Note-Hospitalist ---
Subjective HPI/CC On Admission Date Seen by Provider: Jun 04, 2018 Time Seen by Provider: 13:49 The patient is a 62-year-old white male who presented to the emergency room last night with complaints of shortness of breath. The patient reported that he had begun to note shortness of breath about 2 months ago and it has steadily gotten worse. He had at least 2 contacts with walk-in clinics and oral antibiotics were prescribed. This did not seem to help. He denied fever or chills. He stopped smoking during this period of time. He reports that he had about a [id number] smoking history to that point. Workup in the emergency room showed a total whiteout of the left lung field with deviation of the trachea to the right. The air bronchogram showed at least patency of the very proximal portion of the left mainstem bronchus. He has no past history of heart disease. Subjective/Events-last exam Met this morning with Dr Matute and with patient o discuss prognosis. Explained to patient his current diagnosis and discussed concerns about current clinical status and worries for decompensation. Patient denies any questions regarding the information presented but when asked to explain what he believes to be going on he was unsure and stated "I think I have cancer." He requested time to think about our conversation and wanted me to come back in the afternoon to continue conversation. Objective Exam Vital Signs Vital Signs Date Time Temp Pulse Resp B/P (MAP) Pulse Ox O2 Delivery O2 Flow Rate FiO2 06/04/18 13:10 Vapotherm 80.00 20.00 06/04/18 12:00 97.8 06/04/18 09:00 107 128/94 (105) 97 06/04/18 08:00 18 06/02/18 10:14 32 Capillary Refill : Less Than 3 Seconds General Appearance: Chronically ill, Mild Distress Respiratory: No Accessory Muscle Use, Decreased Breath Sounds Cardiovascular: Regular Rate, Rhythm, No Murmur Results/Procedures Lab Laboratory Tests 06/04/18 03:30 Patient resulted labs reviewed. Imaging: Reviewed Imaging Report Assessment/Plan Assessment and Plan Assess & Plan/Chief Complaint Pleural Effusion Critical Care Critical Care: Critically Ill Patient Diagnosis/Problems Diagnosis/Problems (1) Pleural effusion associated with pulmonary infection Status: Acute Assessment & Plan: chest tube placed- management by Dr Matute Path back and showed malignant cells consistent with adenocarcinoma Discussed with patient on 06/02- he would like Dr Matute to discuss with his sister Will consult Oncology Cultures negative from fluid Repeat CT chest with contrast Antibiotics broaden to Vanc and Zosyn (2) Ileus Status: Acute Assessment & Plan: Continue lactulose and reglan Cont simethicone for gas Surgery consulted, appreciate recs Small bowel follow through pending (3) Hyponatremia Status: Acute Assessment & Plan: Na 131 today Likely due to fluid overload status (4) Alcoholism Status: Chronic Assessment & Plan: Continue on ativan and Gabapentin for withdrawal CIWA protocol (5) Pneumonia Status: Acute Assessment & Plan: Continue on abx as above Cultures negative Qualifiers: Pneumonia type: due to unspecified organism Laterality: left Lung location: unspecified part of lung Qualified Codes: J18.9 - Pneumonia, unspecified organism (6) Hypertension Status: Acute Assessment & Plan: Trend Continue nitro paste Qualifiers: Hypertension type: unspecified Qualified Codes: I10 - Essential (primary) hypertension (7) Lung cancer Assessment & Plan: malignant pleural effusion CT chest shows no mass cytology consistent with adenocarcinoma-lung primary Qualifiers: Laterality: unspecified laterality Lung location: unspecified part of lung Qualified Codes: C34.90 - Malignant neoplasm of unspecified part of unspecified bronchus or lung (8) Counseling regarding end of life decision making Assessment & Plan: Patient had very poor prognosis as has been discussed with him multiples by myself, Dr Matute, Dr Hair, and Palliative Care RN I have attempted to explain this with patient again this afternoon and when asked if he could explain he current problem he was unable and then asked to be left alone He has multiple times stated he wants to sleep and be left alone and has refused treatments and indicated desire to remove invasive treatments (NG tube, etc) I do not believe patient has the capacity to understand the gravity of his illness and make decisions with that information I do not believe that he would benefit from further invasive measures including intubation or PPV I have discussed this with Dr Hair, Dr Worthy, and Thanh Matute and we all agree that a CODE BLUE or intubation would be medically futile DNR placed I would recommend comfort measures only at this time- will await ethics consult to assist with plan Clinical Quality Measures End of Life/Advance Care Plan: Advance Care discuss with: patient End of Life Care: Pallative Care Plan: clarifying prognosis, identified end-of-life goals Time spent on discussion(mins): 50 DVT/VTE Risk/Contraindication: Risk Factor Score Per Nursin RFS Level Per Nursing on Admit: 4+=Very High DANG ULLOA MD Jun 04, 2018 1:55 pm
[2018-06-04] MEDS ORDERED: PHARMACY TO DOSE IV SCH (15:00)
[2018-06-04] MEDS ORDERED: PIPERACILLIN/TAZO 4.5 GM/NS 100 ML IV NR ×2 (15:15)
[2018-06-04] MEDS ORDERED: VANCOMYCIN 1250 MG/NS 250 ML IVPB IV NR ×2 (15:15)
--- NOTE | 2018-06-04 15:16 | Progress Note-Standard ---
Standard Progress Note Progress Notes/Assess & Plan Date Seen by a Provider: Jun 04, 2018 Time Seen by a Provider: 15:08 Progress/Assessment & Plan 62-year-old male admitted with increasing shortness of breath and upper respiratory symptoms for 2 months. He was treated twice in the urgent care with the antibiotics and steroids. Noted to have significant left pleural effusion, status post drainage and chest tube placement. Cytology showing cancer cells consistent with adenocarcinoma of lung origin. CT scan showing no significant lung mass but has significant COPD with bullous emphysema. Also has significant ileus with questionable distal obstruction. Patient scheduled for a small bowel follow-through to rule out obstruction. Continues to have moderate respiratory distress with CO2 retention. Discussed the case with Dr. Matute and Dr. Be both of felt patient would be a poor candidate for ventilatory support because of poor lung status and difficulty weaning. Because of significant bullae, he could also develop spontaneous pneumothorax. Antibiotics have been changed for more broader coverage. Agree with maintaining patient is a DO NOT RESUSCITATE because of his poor status. Patient did not want to make the decision and his sister was contacted who refuse to make a decision and did not want to be involved in his care. No other relatives. Continue management of pneumonia and ileus as you're doing. Lung cancer is not directly contradicting to his symptoms and he does not need any treatment now. Because of his poor condition, he will not tolerate any treatment at this point. If he improves from the pneumonia and ileus but the improving performance status, we will discuss further workup and treatment options at that time. I will follow the patient with you. FABIO DE LA TORRE Jun 04, 2018 15:16
[2018-06-04] MEDS: LORazepam INJ 2 MG/ML (ATIVAN) VIAL IVP PRN (15:37)
--- NOTE | 2018-06-04 17:59 | Diagnostic Imaging Report ---
INDICATION: Ileus, nausea and emesis. EXAMINATION: Small bowel follow through study. FINDINGS: The abdomen reveals gaseous distention of the small and large bowel throughout the abdomen. Gastrografin contrast was injected via the indwelling nasogastric tube with followup overhead images of the abdomen obtained. At 30 minutes, there is opacification of the stomach and nondilated jejunum. Contrast continues to progress through the small bowel with evidence of mild to moderate dilatation of the ileum. After 4 hours and 30 minutes, contrast reaches the distal ileum. Additional image obtained at 6 hours and 45 minutes after ingestion reveals opacification of the right colon. IMPRESSION: 1. Findings are most suggestive of small bowel ileus with mild to moderate dilatation of the ileum. Possibility of partial distal ileal mechanical obstruction is not fully excluded. 2. Small bowel transit time is approximately 6.5 hours. Dictated by: Dictated on workstation # [id number]
[2018-06-04] MEDS: TAMSULOSIN 0.4 MG (FLOMAX) CAP PO SCH (18:11)
[2018-06-04] MEDS: morphine INJ 4 MG/ML 1 ML (VIAL/SYRINGE) IVP PRN ×2 (20:24→22:18)
[2018-06-04] MEDS: PIPERACILLIN SODIUM/TAZOBACTAM 4.5 GM in NS (IVPB) 100 ML IV SCH (22:17)
[2018-06-05] VITALS (18 sets, daily range): BP systolic 113–162; BP diastolic 62–88
[2018-06-05] MEDS: morphine INJ 4 MG/ML 1 ML (VIAL/SYRINGE) IVP PRN ×5 (00:22→17:50)
[2018-06-05] MEDS: RT-ALBUTEROL/IPRATROPIUM 3 ML (DUONEB) VIAL INH SCH ×5 (01:33→19:01)
[2018-06-05] MEDS: LORazepam INJ 2 MG/ML (ATIVAN) VIAL IVP PRN ×3 (03:03→23:07)
[2018-06-05] MEDS: meTOprolol 5 MG/5 ML (LOPRESSOR) VIAL IV SCH ×4 (03:03→21:15)
[2018-06-05] MEDS: GABAPENTIN 100 MG (NEURONTIN) CAP PO SCH ×4 (03:05→21:14)
[2018-06-05] MEDS: VANCOMYCIN 1 GM/NS 250 ML IVPB IV SCH ×4 (03:06→15:20)
[2018-06-05 03:41] LABS: BASOPHILS % (AUTO) 0 % (0-10); EOSINOPHILS % (AUTO) 0 % (0-10); HEMATOCRIT 36 % (40-54); HEMOGLOBIN 11.6 G/DL (13.3-17.7); LYMPHOCYTES # (AUTO) 0.5 X 10^3 (1.0-4.0); LYMPHOCYTES % (AUTO) 5 % (12-44); MEAN CORPUSCULAR HEMOGLOBIN 32 PG (25-34); MEAN CORPUSCULAR HGB CONC 32 G/DL (32-36); MEAN CORPUSCULAR VOLUME 99 FL (80-99); MEAN PLATELET VOLUME 8.3 FL (7.4-10.4); MONOCYTES # (AUTO) 1.1 X 10^3 (0.0-1.0); MONOCYTES % (AUTO) 12 % (0-12); NEUTROPHILS # (AUTO) 7.7 X 10^3 (1.8-7.8); NEUTROPHILS % (AUTO) 82 % (42-75); PLATELET COUNT 266 10^3/uL (130-400); RED BLOOD COUNT 3.67 10^6/uL (4.35-5.85); RED CELL DISTRIBUTION WIDTH 12.8 % (10.0-14.5); WHITE BLOOD COUNT 9.4 10^3/uL (4.3-11.0)
[2018-06-05 04:05] LABS: BUN/CREATININE RATIO 10; CALCIUM 8.3 MG/DL (8.5-10.1); CARBON DIOXIDE 31 MMOL/L (21-32); CHLORIDE 95 MMOL/L (98-107); CREATININE SERUM 0.67 MG/DL (0.60-1.30); GFR ESTIMATED > 60; GLUCOSE 132 MG/DL (70-105); MAGNESIUM 1.8 MG/DL (1.8-2.4); PHOSPHORUS 1.8 MG/DL (2.3-4.7); POTASSIUM 3.7 MMOL/L (3.6-5.0); SODIUM 137 MMOL/L (135-145)
[2018-06-05 04:06] LABS: BAND NEUTROPHILS 0 %; LYMPHOCYTES % (MANUAL) 8 %; MONOCYTES % (MANUAL) 9 %; NEUTROPHILS % (MANUAL) 83 %
[2018-06-05 04:07] LABS: BASOPHILS % (MANUAL) 0 %; EOSINOPHILS % (MANUAL) 0 %; POLYCHROMASIA SLIGHT; TOXIC GRANULATION/VACUOLAZATIO 1+
[2018-06-05] MEDS: KCL 20 MEQ TAB (K-DUR) PO SCH (05:08)
[2018-06-05] MEDS: MAGNESIUM 1 GM/100 ML IVPB 100 ML IV SCH (05:08)
[2018-06-05] MEDS: POTASSIUM CL 10MEQ/50ML IVPB 50 ML IV SCH (05:08)
--- NOTE | 2018-06-05 05:42 | Pulmonary Progress Note ---
Subjective Time Seen by a Provider: 05:36 Subjective/Events-last exam pt is currently on 65% Vapotherm Sepsis Event Evaluation Height, Weight, BMI Height: 5'6.00" Weight: 162lbs. 2.0oz. 73.819343sk; 25.2 BMI Method:Stated Exam Exam Vital Signs Date Time Temp Pulse Resp B/P (MAP) Pulse Ox O2 Delivery O2 Flow Rate FiO2 06/05/18 04:00 102 13 137/74 (95) 100 Vapotherm 65.00 14.00 06/05/18 03:00 115 21 157/87 (110) 94 Vapotherm 65.00 14.00 06/05/18 02:00 106 27 150/77 (101) 97 Vapotherm 65.00 14.00 06/05/18 01:40 112 15 92 Vapotherm 65.00 14.00 06/05/18 01:33 99 Vapotherm 16.00 70 06/05/18 01:00 116 28 162/86 (111) 98 Vapotherm 70.00 16.00 06/05/18 01:00 116 06/05/18 00:00 111 16 129/79 (96) 100 Vapotherm 70.00 16.00 06/05/18 00:00 Vapotherm 16.00 70 06/04/18 23:00 106 26 129/80 (96) 100 Vapotherm 70.00 16.00 06/04/18 22:16 121 27 99 Vapotherm 70.00 16.00 06/04/18 22:12 100 Vapotherm 18.00 70 06/04/18 22:00 117 14 154/83 (106) 100 Vapotherm 75.00 18.00 06/04/18 21:00 117 20 161/93 (115) 100 Vapotherm 75.00 18.00 06/04/18 20:00 Vapotherm 20.00 80 06/04/18 20:00 113 22 159/84 (109) 99 Vapotherm 75.00 18.00 06/04/18 19:07 112 16 100 Vapotherm 75.00 18.00 06/04/18 19:00 112 06/04/18 19:00 112 16 167/87 (113) 100 Vapotherm 80.00 20.00 06/04/18 18:29 100 Vapotherm 20.00 80 06/04/18 18:00 111 18 162/86 (111) 100 Vapotherm 80.00 20.00 06/04/18 17:00 111 25 157/85 (109) 91 Vapotherm 80.00 20.00 06/04/18 16:04 98.7 06/04/18 16:00 104 13 158/80 (106) 93 Vapotherm 80.00 20.00 06/04/18 16:00 Vapotherm 20.00 80 06/04/18 15:00 112 159/84 (109) 96 Vapotherm 80.00 20.00 06/04/18 14:00 120 31 179/99 (125) 94 Vapotherm 80.00 20.00 06/04/18 13:45 95 Vapotherm 20.00 80 06/04/18 13:10 Vapotherm 80.00 20.00 06/04/18 13:00 116 06/04/18 13:00 116 32 133/94 (107) 87 Nasal Cannula 6.00 06/04/18 12:45 Nasal Cannula 6.00 06/04/18 12:00 111 24 137/65 (89) 97 Nasal Cannula 4.00 06/04/18 12:00 Nasal Cannula 2.00 06/04/18 12:00 97.8 06/04/18 11:00 Nasal Cannula 4.00 06/04/18 11:00 109 17 141/78 (99) 95 Nasal Cannula 4.00 06/04/18 10:00 110 28 168/87 (114) 92 Nasal Cannula 2.00 06/04/18 09:00 107 128/94 (105) 97 Nasal Cannula 2.00 06/04/18 08:00 98.1 119 18 183/100 (127) 91 Nasal Cannula 2.00 06/04/18 08:00 Nasal Cannula 2.00 06/04/18 07:00 112 06/04/18 07:00 112 16 135/80 (98) 97 Nasal Cannula 2.00 06/04/18 06:00 110 20 141/91 (108) 97 Nasal Cannula 2.00 I & O 06/05/18 07:00 Intake Total 190 ml Output Total 925 ml Balance -735 ml Height & Weight Height: 5'6.00" Weight: 162lbs. 2.0oz. 73.542270ri; 25.2 BMI Method:Stated General Appearance: WD/WN, Chronically ill, Mild Distress HEENT: PERRL/EOMI Neck: Full Range of Motion Respiratory: No Respiratory Distress, Decreased Breath Sounds Cardiovascular: Regular Rate, Rhythm, No Murmur Capillary Refill: Less Than 3 Seconds Gastrointestinal: normal bowel sounds, non tender, soft, distended (Less) Extremity: No Calf Tenderness, No Pedal Edema Neurologic/Psychiatric: Alert, Oriented x3 Skin: Normal Color Lymphatic: No Adenopathy Results Lab Laboratory Tests 06/04/18 03:30 06/05/18 03:15 Assessment/Plan Assessment/Plan S/P large left pleural effusion with opacification of left lung and mass/ compression effect r/o cancer -Doubt infection/lung abscess however will add Vanco and zosyn for PPX. -CT scan of chest reviewed no mass noted -Cytology from pleural fluid is positive for adenocarcinoma -Oncology is consulted -KVO IVF Diarrhea - probably secondary to lactulose -D/C lactulose -CHeck cdiff PT has trapped lung - this is not a true PTX -Will continue to monitor ILD with Pulmonary edema and pleural effusion -Secondary to trapped lung left pleural effusion will continue to reaccumulate. will monitor clinically Ileus -pt had BM this AM -surgery following -CA 19-9 is pending hyponatremia probably secondary to pulmonary disease and lung cancer Metabolic acidosis - improved -Monitor -IVF HTN urgency with sinus tach Lopressor and Vasotec PRN Hyponatremia - possibly SIADH from cancer tobacco use/marijuana use -education Pt's prognosis is very poor. He is now DNR. I am going to transfer him to the 4th floor. TYLER PAINTING DO Jun 05, 2018 05:42
[2018-06-05] MEDS ORDERED: FUROSEMIDE 40 MG/4 ML INJ (LASIX) IVP ONE (05:45)
[2018-06-05] MEDS ORDERED: KCL 8 MEQ (MICRO K) TABLET PO ONE (05:45)
[2018-06-05] MEDS: PIPERACILLIN SODIUM/TAZOBACTAM 4.5 GM in NS (IVPB) 100 ML IV SCH ×3 (06:16→21:16)
--- NOTE | 2018-06-05 07:35 | Progress Note-Hospitalist ---
Subjective HPI/CC On Admission Date Seen by Provider: Jun 05, 2018 Time Seen by Provider: 07:32 The patient is a 62-year-old white male who presented to the emergency room last night with complaints of shortness of breath. The patient reported that he had begun to note shortness of breath about 2 months ago and it has steadily gotten worse. He had at least 2 contacts with walk-in clinics and oral antibiotics were prescribed. This did not seem to help. He denied fever or chills. He stopped smoking during this period of time. He reports that he had about a [id number] smoking history to that point. Workup in the emergency room showed a total whiteout of the left lung field with deviation of the trachea to the right. The air bronchogram showed at least patency of the very proximal portion of the left mainstem bronchus. He has no past history of heart disease. Subjective/Events-last exam Pt reports feeling ok. States he feels he needs to have a BM. Breathing about the same but on less support from vapotherm. Objective Exam Vital Signs Vital Signs Date Time Temp Pulse Resp B/P (MAP) Pulse Ox O2 Delivery O2 Flow Rate FiO2 06/05/18 06:35 100 Vapotherm 16.00 65 06/05/18 06:00 105 26 155/78 (103) 06/05/18 04:00 98.6 Capillary Refill : Less Than 3 Seconds General Appearance: No Apparent Distress, WD/WN Respiratory: Decreased Breath Sounds, Other (on Vapotherm) Cardiovascular: Regular Rate, Rhythm, No Murmur Gastrointestinal: Other (less distended, softer, quiet bowel sounds) Extremity: No Calf Tenderness, No Pedal Edema Neurologic/Psychiatric: Alert, Oriented x3 Skin: Mottled Results/Procedures Lab Laboratory Tests 06/05/18 03:15 Patient resulted labs reviewed. 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 (2) Ileus Status: Acute Assessment & Plan: Continue lactulose and reglan Cont simethicone for gas Surgery consulted, appreciate recs Small bowel follow through shows ileus and cannot rule out distal obstruction (3) Hyponatremia Status: Resolved Assessment & Plan: Na 137 today (4) Alcoholism Status: Chronic Assessment & Plan: Continue on ativan and Gabapentin for withdrawal CIWA protocol (5) Pneumonia Status: Acute Assessment & Plan: Continue on abx as above Cultures negative Qualifiers: Pneumonia type: due to unspecified organism Laterality: left Lung location: unspecified part of lung Qualified Codes: J18.9 - Pneumonia, unspecified organism (6) Hypertension Status: Acute Assessment & Plan: Trend, improving control Continue nitro paste Qualifiers: Hypertension type: unspecified Qualified Codes: I10 - Essential (primary) hypertension (7) Lung cancer Assessment & Plan: malignant pleural effusion CT chest shows no mass cytology consistent with adenocarcinoma-lung primary Qualifiers: Laterality: unspecified laterality Lung location: unspecified part of lung Qualified Codes: C34.90 - Malignant neoplasm of unspecified part of unspecified bronchus or lung (8) Counseling regarding end of life decision making Assessment & Plan: Patient had very poor prognosis as has been discussed with him multiples by myself, Dr Matute, Dr Hair, and Palliative Care RN I have attempted to explain this with patient and when asked if he could explain his current problem he was unable and then asked to be left alone He has multiple times stated he wants to sleep and be left alone and has refused treatments and indicated desire to remove invasive treatments (NG tube, etc) I do not believe patient has the capacity to understand the gravity of his illness and make decisions with that information I do not believe that he would benefit from further invasive measures including intubation or PPV I have discussed this with Dr Hair, Dr Worthy, and Thanh Matute and we all agree that a CODE BLUE or intubation would be medically futile DNR placed I would recommend comfort measures only Ethics consult requested- will continue to monitor and if no further improvement will likely switch to comfort measures only Clinical Quality Measures DVT/VTE Risk/Contraindication: Risk Factor Score Per Nursin RFS Level Per Nursing on Admit: 4+=Very High DANG ULLOA MD Jun 05, 2018 07:35
[2018-06-05] MEDS: NICOTINE 14 MG (NICODERM) PATCH TD SCH (08:37)
[2018-06-05] MEDS: DOCUSATE SODIUM 100 MG (COLACE) CAP PO SCH ×2 (08:44→21:14)
[2018-06-05] MEDS: FOLIC ACID 1 MG TAB PO SCH (08:44)
--- NOTE | 2018-06-05 09:27 | Physical Therapy Daily Note ---
PT Daily Note-Current Subjective Patient in bed pre tx, agrees to PT with encouragement, no complaints of pain. Appearance Patient on commode post tx, nursing in the room. Mental Status Patient Orientation: Person, Confused Attachments: Oxygen, Rico Catheter, IV vapotherm Transfers Functional [place] Measure 0=Not Assessed/NA 4=Minimal Assistance 1=Total Assistance 5=Supervision or Setup 2=Maximal Assistance 6=Modified [place] 3=Moderate Assistance 7=Complete IndependenceIRFPAI Quality Coding Scale 6 Independent with activity with or without an assistive device 5 Patient requires set up or clean up by helper. Patient completes activity by themselves 4 Supervision or touching assist (CGA). [place] provide cues , steadying assist 3 The helper provides less than half the effort to complete the activity 2 The helper provides more than half the effort to complete the activity 1 Dependent. The helper does all the effort to complete an activity 7 Patient refused to complete or attempt activity 9 The patient did not perform the activity before the current illness or injury 88 Not attempted due to Medical conditions or safety concerns Transfers (B, C, W/C) (FIM): 4 Scootin Rollin Supine to/from Sit: 4 Sit to/from Stand: 4 Bed to/from Chair: 4 Min assist for supine to sit, CGA for sit to stand and transfers, cues for safety and hand placement Weight Bearing Right Lower Extremity: Right Full Weight Bearing Left Lower Extremity: Left Full Weight Bearing Gait Training Gait (FIM): 1 Distance: 3' Gait Level of Assist: 4 Gait Persons Needed: 1 Gait Assistive Device: Handheld Assist Steady ambulation, cues for direction Exercises Seated Therapy Exercises: Ankle pumps, Long arc quads Seated Reps: 15 Treatments bed mobility and transfers, ambulation, functional strengthening Assessment Current Status: Fair Progress Patient initially placed in recliner but he stated that he had to have a BM so he was placed on commode and left with nursing in the room. PT Short Term Goals Short Term Goals Time Frame: Jun 06, 2018 Transfers (B,C,W/C) (FIM): 5 Gait (FIM): 2 Gait Distance Comment: 50' Gait Level of Assist: 5 Gait Assistive Device: FWW PT Plan Problem List Problem List: Activity Tolerance, Functional Strength, Safety, Balance, Gait, Transfer, Bed Mobility Treatment/Plan Treatment Plan: Continue Plan of Care Treatment Plan: Bed Mobility, Education, Functional Activity Sissy, Functional Strength, Gait, Safety, Therapeutic Exercise, Transfers Treatment Duration: Jun 06, 2018 Frequency: 6 times per week Estimated Hrs Per Day: .25 hour per day (15-30') Patient and/or Family Agrees t: Yes Safety Risks/Education Patient Education: Gait Training, Transfer Techniques, Correct Positioning, Safety Issues Teaching Recipient: Patient Teaching Methods: Demonstration, Discussion Response to Teaching: Reinforcement Needed Time/GCodes Time In: 09 Time Out: 09 Total Billed Treatment Time: 15 Total Billed Treatment 1 visit FA 15' NAGI HUTCHISON PT Jun 05, 2018 09:27
[2018-06-05] MEDS: MULTIVIT W/MINERALS TAB (THERAGRAN M) PO SCH (10:01)
--- NOTE | 2018-06-05 10:10 | Diagnostic Imaging Report ---
INDICATION: Dyspnea. TECHNIQUE: Single view chest 3:41 AM. CORRELATION STUDY: 06/04/2018 FINDINGS: Gastric tube has been removed. Bilateral pulmonary infiltrates, left significantly greater than right, persisting and overall generally stable to perhaps minimally improved. Component of vascular congestion not excluded with cardiac enlargement stable. Probable loculated pneumothorax over the left mid chest generally stable. Subcutaneous gas over the left lower abdominal wall. Prominent gas loops of bowel in the upper abdomen appear less severely distended. IMPRESSION: 1. Bilateral pulmonary infiltrates persisting perhaps minimally improved. Vascular overall less severe. Probable loculated pneumothorax over the left mid chest partially obscured but generally stable. Dictated by: Dictated on workstation # [id number]
[2018-06-05] MEDS ORDERED: ARTIFICAL TEARS 0.4 ML UNIT DOSE (REFRESH PLUS) OU PRN (13:00)
[2018-06-05] MEDS: TAMSULOSIN 0.4 MG (FLOMAX) CAP PO SCH (17:50)
[2018-06-05] MEDS: guaiFENesin/CODEINE (ROBITUSSIN AC) 10ML UDC PO PRN (17:50)
--- NOTE | 2018-06-05 20:57 | Progress Note ---
Subjective Date Seen by a Provider: Jun 05, 2018 Time Seen by a Provider: 14:39 Subjective/Events-last exam Patient transferred to fourth floor today. Patient pulled NG tube. Patient passing flatus and having liquid to moderately formed stools today. Wanting food. Denies any nausea or vomiting. Patient breathing about the same he states. Denies any sweats chills or chest pain. Small bowel follow-through yesterday demonstrating findings suggestive of ileus contrast did make its way into the colon cannot rule out partial obstruction. Objective Exam Vital Signs Date Time Temp Pulse Resp B/P (MAP) Pulse Ox O2 Delivery O2 Flow Rate FiO2 06/05/18 20:27 97.9 106 16 146/69 (94) 94 Nasal Cannula 5.00 06/05/18 19:01 100 Nasal Cannula 6.00 06/05/18 19:00 103 06/05/18 16:05 97.6 100 20 157/74 (101) 91 Nasal Cannula 8.00 06/05/18 15:06 95 Nasal Cannula 6.00 06/05/18 14:49 95 06/05/18 11:30 98.2 103 16 148/88 (108) 96 Nasal Cannula 6.00 06/05/18 11:03 98 13 135/68 (90) 100 Vapotherm 50.00 14.00 06/05/18 10:00 96 17 151/74 (99) 100 Vapotherm 50.00 14.00 06/05/18 09:30 92 49 137/77 (97) 100 Vapotherm 50.00 14.00 06/05/18 09:00 90 28 113/69 (84) 100 Vapotherm 50.00 14.00 06/05/18 08:45 93 Vapotherm 14.00 50 06/05/18 08:45 96.8 Vapotherm 50.00 14.00 06/05/18 08:40 113/62 (79) 06/05/18 08:00 101 34 141/80 (100) 98 Vapotherm 65.00 14.00 06/05/18 07:00 100 23 150/81 (104) 100 Vapotherm 65.00 14.00 06/05/18 07:00 100 06/05/18 06:35 100 Vapotherm 16.00 65 06/05/18 06:00 105 26 155/78 (103) 96 Vapotherm 65.00 14.00 06/05/18 05:00 102 8 115/62 (79) 100 Vapotherm 65.00 14.00 06/05/18 04:00 Vapotherm 14.00 65 06/05/18 04:00 102 13 137/74 (95) 100 Vapotherm 65.00 14.00 06/05/18 04:00 98.6 06/05/18 03:00 115 21 157/87 (110) 94 Vapotherm 65.00 14.00 06/05/18 02:00 106 27 150/77 (101) 97 Vapotherm 65.00 14.00 06/05/18 01:40 112 15 92 Vapotherm 65.00 14.00 06/05/18 01:33 99 Vapotherm 16.00 70 06/05/18 01:00 116 28 162/86 (111) 98 Vapotherm 70.00 16.00 06/05/18 01:00 116 06/05/18 00:00 111 16 129/79 (96) 100 Vapotherm 70.00 16.00 06/05/18 00:00 98.3 06/05/18 00:00 Vapotherm 16.00 70 06/04/18 23:00 106 26 129/80 (96) 100 Vapotherm 70.00 16.00 06/04/18 22:16 121 27 99 Vapotherm 70.00 16.00 06/04/18 22:12 100 Vapotherm 18.00 70 06/04/18 22:00 117 14 154/83 (106) 100 Vapotherm 75.00 18.00 06/04/18 21:00 117 20 161/93 (115) 100 Vapotherm 75.00 18.00 06/04/18 20:54 98.6 I & O 06/05/18 07:00 Intake Total 590 ml Output Total 1175 ml Balance -585 ml Capillary Refill : Less Than 3 Seconds General Appearance: No Apparent Distress, WD/WN HEENT: PERRL/EOMI Neck: Full Range of Motion Respiratory: Decreased Breath Sounds, Other (on Vapotherm) Cardiovascular: Regular Rate, Rhythm, No Murmur Gastrointestinal: normal bowel sounds, non tender, soft, distended (Minimal) Extremity: No Calf Tenderness, No Pedal Edema Neurologic/Psychiatric: Alert, Oriented x3 Skin: Mottled Lymphatic: No Adenopathy Results Lab Laboratory Tests 06/05/18 03:15: White Blood Count 9.4, Red Blood Count 3.67L, Hemoglobin 11.6L, Hematocrit 36L, Mean Corpuscular Volume 99, Mean Corpuscular Hemoglobin 32, Mean Corpuscular Hemoglobin Concent 32, Red Cell Distribution Width 12.8, Platelet Count 266, Mean Platelet Volume 8.3, Neutrophils (%) (Auto) 82H, Lymphocytes (%) (Auto) 5L , Monocytes (%) (Auto) 12, Eosinophils (%) (Auto) 0, Basophils (%) (Auto) 0, Neutrophils # (Auto) 7.7, Lymphocytes # (Auto) 0.5L, Monocytes # (Auto) 1.1H, Eosinophils # (Auto) 0.0, Basophils # (Auto) 0.0, Neutrophils % (Manual) 83, Lymphocytes % (Manual) 8, Monocytes % (Manual) 9, Eosinophils % (Manual) 0, Basophils % (Manual) 0, Band Neutrophils 0, Toxic Granulation 1+, Polychromasia SLIGHT, Sodium Level 137, Potassium Level 3.7, Chloride Level 95L, Carbon Dioxide Level 31, Anion Gap 11, Blood Urea Nitrogen 7, Creatinine 0.67, Estimat Glomerular Filtration Rate > 60, BUN/Creatinine Ratio 10, Glucose Level 132H, Calcium Level 8.3L, Phosphorus Level 1.8L, Magnesium Level 1.8 Microbiology 05/26/18 Blood Culture - Preliminary, Resulted No growth 05/27/18 Gram Stain - Final, Complete 05/27/18 Body Fluid Culture - Final, Complete No growth 06/05/18 C. difficile GDH Antigen & Toxins - Final, Complete 05/29/18 Gram Stain - Final, Complete 05/29/18 Sputum Culture - Final, Complete No growth 05/26/18 Urine Culture - Final, Complete NO GROWTH Assessment/Plan Assessment/Plan Assessment/Plan left lung pneumonia with hydropneumothorax s/p CT placement and ileus. ambulate. cytology per pleural effusion adenocarcinoma oncology consulted severe COPD encouraged to increase activity and work with physical therapy Will start on clears and advance as tolerates Diarrhea likely secondary to contrast Overall poor prognosis Clinical Quality Measures DVT/VTE Risk/Contraindication: Risk Factor Score Per Nursin RFS Level Per Nursing on Admit: 4+=Very High TINOCO,GEORGE D DO Jun 05, 2018 20:57
[2018-06-06] VITALS (7 sets, daily range): BP systolic 132–162; BP diastolic 68–77
[2018-06-06] MEDS: RT-ALBUTEROL/IPRATROPIUM 3 ML (DUONEB) VIAL INH SCH ×4 (02:40→22:35)
[2018-06-06] MEDS: meTOprolol 5 MG/5 ML (LOPRESSOR) VIAL IV SCH ×4 (03:21→21:50)
[2018-06-06] MEDS: VANCOMYCIN 1 GM/NS 250 ML IVPB IV SCH ×2 (03:21)
[2018-06-06] MEDS: GABAPENTIN 100 MG (NEURONTIN) CAP PO SCH ×4 (03:22→21:50)
[2018-06-06] MEDS: PIPERACILLIN SODIUM/TAZOBACTAM 4.5 GM in NS (IVPB) 100 ML IV SCH ×3 (05:12→21:50)
[2018-06-06] MEDS: MULTIVIT W/MINERALS TAB (THERAGRAN M) PO SCH (06:10)
[2018-06-06] MEDS: morphine INJ 4 MG/ML 1 ML (VIAL/SYRINGE) IVP PRN ×3 (06:18→23:24)
--- NOTE | 2018-06-06 06:57 | Pulmonary Progress Note ---
Subjective Time Seen by a Provider: 08:43 Subjective/Events-last exam NO complications noted. Sepsis Event Evaluation Height, Weight, BMI Height: 5'6.00" Weight: 156lbs. 4.2oz. 70.664560br; 25.2 BMI Method:Stated Exam Exam Vital Signs Date Time Temp Pulse Resp B/P (MAP) Pulse Ox O2 Delivery O2 Flow Rate FiO2 06/06/18 04:06 97.8 92 16 132/73 (92) 96 Nasal Cannula 5.00 06/06/18 03:23 108 137/68 (91) 06/06/18 02:45 90 Nasal Cannula 6.00 06/06/18 02:40 61 Room Air 06/06/18 01:00 99 06/06/18 00:38 98.2 103 18 149/75 (99) 97 Nasal Cannula 5.00 06/05/18 21:17 104 125/62 (83) 06/05/18 20:27 97.9 106 16 146/69 (94) 94 Nasal Cannula 5.00 06/05/18 19:50 High Flow N/C 6.00 06/05/18 19:01 100 Nasal Cannula 6.00 06/05/18 19:00 103 06/05/18 16:05 97.6 100 20 157/74 (101) 91 Nasal Cannula 8.00 06/05/18 15:06 95 Nasal Cannula 6.00 06/05/18 14:49 95 06/05/18 11:30 98.2 103 16 148/88 (108) 96 Nasal Cannula 6.00 06/05/18 11:03 98 13 135/68 (90) 100 Vapotherm 50.00 14.00 06/05/18 10:00 96 17 151/74 (99) 100 Vapotherm 50.00 14.00 06/05/18 09:30 92 49 137/77 (97) 100 Vapotherm 50.00 14.00 06/05/18 09:00 90 28 113/69 (84) 100 Vapotherm 50.00 14.00 06/05/18 08:45 93 Vapotherm 14.00 50 06/05/18 08:45 96.8 Vapotherm 50.00 14.00 06/05/18 08:40 113/62 (79) 06/05/18 08:00 101 34 141/80 (100) 98 Vapotherm 65.00 14.00 06/05/18 07:00 100 23 150/81 (104) 100 Vapotherm 65.00 14.00 06/05/18 07:00 100 I & O 06/06/18 07:00 Intake Total 2150 ml Output Total 3625 ml Balance -1475 ml Height & Weight Height: 5'6.00" Weight: 156lbs. 4.2oz. 70.619913gx; 25.2 BMI Method:Stated General Appearance: No Apparent Distress, WD/WN HEENT: PERRL/EOMI Neck: Full Range of Motion Respiratory: Decreased Breath Sounds, Other (on Vapotherm) Cardiovascular: Regular Rate, Rhythm, No Murmur Capillary Refill: Less Than 3 Seconds Gastrointestinal: normal bowel sounds, non tender, soft, distended (Minimal) Extremity: No Calf Tenderness, No Pedal Edema Neurologic/Psychiatric: Alert, Oriented x3 Skin: Mottled Lymphatic: No Adenopathy Results Lab Laboratory Tests 06/05/18 03:15 Assessment/Plan Assessment/Plan S/P large left pleural effusion with opacification of left lung and mass/ compression effect r/o cancer -Doubt infection/lung abscess however will add Vanco and zosyn for PPX. -CT scan of chest reviewed no mass noted -Cytology from pleural fluid is positive for adenocarcinoma -Oncology is consulted -D/C Vanco - MRSA swab is negative. -KVO IVF Adenocarcinom - EGFR is negative -CA 19-9 is positive -Check RUQ, pancreatic US r/o mass Diarrhea - probably secondary to lactulose -D/C lactulose -CHeck cdiff PT has trapped lung - this is not a true PTX -Will continue to monitor ILD with Pulmonary edema and pleural effusion -Secondary to trapped lung left pleural effusion will continue to reaccumulate. will monitor clinically Ileus -pt had BM this AM -surgery following tobacco use/marijuana use -education Pt's prognosis is very poor. He is now DNR. TYLER PAINTING DO Jun 06, 2018 06:57
[2018-06-06 07:04] LABS: BASOPHILS % (AUTO) 0 % (0-10); EOSINOPHILS # (AUTO) 0.2 10^3/uL (0.0-0.3); EOSINOPHILS % (AUTO) 2 % (0-10); HEMATOCRIT 40 % (40-54); HEMOGLOBIN 12.3 G/DL (13.3-17.7); LYMPHOCYTES # (AUTO) 0.8 X 10^3 (1.0-4.0); LYMPHOCYTES % (AUTO) 9 % (12-44); MEAN CORPUSCULAR HEMOGLOBIN 31 PG (25-34); MEAN CORPUSCULAR HGB CONC 31 G/DL (32-36); MEAN CORPUSCULAR VOLUME 99 FL (80-99); MEAN PLATELET VOLUME 8.5 FL (7.4-10.4); MONOCYTES # (AUTO) 1.1 X 10^3 (0.0-1.0); MONOCYTES % (AUTO) 13 % (0-12); NEUTROPHILS # (AUTO) 6.6 X 10^3 (1.8-7.8); NEUTROPHILS % (AUTO) 77 % (42-75); PLATELET COUNT 239 10^3/uL (130-400); RED BLOOD COUNT 3.98 10^6/uL (4.35-5.85); RED CELL DISTRIBUTION WIDTH 12.6 % (10.0-14.5); WHITE BLOOD COUNT 8.6 10^3/uL (4.3-11.0)
[2018-06-06 07:27] LABS: BUN/CREATININE RATIO 11; CALCIUM 8.4 MG/DL (8.5-10.1); CARBON DIOXIDE 37 MMOL/L (21-32); CHLORIDE 94 MMOL/L (98-107); CREATININE SERUM 0.66 MG/DL (0.60-1.30); GFR ESTIMATED > 60; GLUCOSE 113 MG/DL (70-105); MAGNESIUM 1.8 MG/DL (1.8-2.4); PHOSPHORUS 1.7 MG/DL (2.3-4.7); POTASSIUM 3.4 MMOL/L (3.6-5.0); SODIUM 137 MMOL/L (135-145)
--- NOTE | 2018-06-06 08:01 | Progress Note ---
Subjective Date Seen by a Provider: Jun 06, 2018 Time Seen by a Provider: 07:56 Subjective/Events-last exam Patient resting. Patient passing flatus and having bm. tolerating liquids. No nausea or emesis. breathing about same Objective Exam Vital Signs Date Time Temp Pulse Resp B/P (MAP) Pulse Ox O2 Delivery O2 Flow Rate FiO2 06/06/18 07:45 96.9 111 18 146/70 (95) 94 Nasal Cannula 5.00 06/06/18 04:06 97.8 92 16 132/73 (92) 96 Nasal Cannula 5.00 06/06/18 03:23 108 137/68 (91) 06/06/18 02:45 90 Nasal Cannula 6.00 06/06/18 02:40 61 Room Air 06/06/18 01:00 99 06/06/18 00:38 98.2 103 18 149/75 (99) 97 Nasal Cannula 5.00 06/05/18 21:17 104 125/62 (83) 06/05/18 20:27 97.9 106 16 146/69 (94) 94 Nasal Cannula 5.00 06/05/18 19:50 High Flow N/C 6.00 06/05/18 19:01 100 Nasal Cannula 6.00 06/05/18 19:00 103 06/05/18 16:05 97.6 100 20 157/74 (101) 91 Nasal Cannula 8.00 06/05/18 15:06 95 Nasal Cannula 6.00 06/05/18 14:49 95 06/05/18 11:30 98.2 103 16 148/88 (108) 96 Nasal Cannula 6.00 06/05/18 11:03 98 13 135/68 (90) 100 Vapotherm 50.00 14.00 06/05/18 10:00 96 17 151/74 (99) 100 Vapotherm 50.00 14.00 06/05/18 09:30 92 49 137/77 (97) 100 Vapotherm 50.00 14.00 06/05/18 09:00 90 28 113/69 (84) 100 Vapotherm 50.00 14.00 06/05/18 08:45 93 Vapotherm 14.00 50 06/05/18 08:45 96.8 Vapotherm 50.00 14.00 06/05/18 08:40 113/62 (79) 06/05/18 08:00 101 34 141/80 (100) 98 Vapotherm 65.00 14.00 I & O 06/06/18 07:00 Intake Total 2150 ml Output Total 3625 ml Balance -1475 ml Capillary Refill : Less Than 3 Seconds General Appearance: No Apparent Distress, WD/WN HEENT: PERRL/EOMI Neck: Full Range of Motion Respiratory: Decreased Breath Sounds, Other (on Vapotherm) Cardiovascular: Regular Rate, Rhythm, No Murmur Gastrointestinal: normal bowel sounds, non tender, soft, distended (Minimal) Extremity: No Calf Tenderness, No Pedal Edema Neurologic/Psychiatric: Alert, Oriented x3 Skin: Mottled Lymphatic: No Adenopathy Results Lab Laboratory Tests 06/06/18 06:15: White Blood Count 8.6, Red Blood Count 3.98L, Hemoglobin 12.3L, Hematocrit 40, Mean Corpuscular Volume 99, Mean Corpuscular Hemoglobin 31, Mean Corpuscular Hemoglobin Concent 31L, Red Cell Distribution Width 12.6, Platelet Count 239, Mean Platelet Volume 8.5, Neutrophils (%) (Auto) 77H, Lymphocytes (%) (Auto) 9L , Monocytes (%) (Auto) 13H, Eosinophils (%) (Auto) 2, Basophils (%) (Auto) 0, Neutrophils # (Auto) 6.6, Lymphocytes # (Auto) 0.8L, Monocytes # (Auto) 1.1H, Eosinophils # (Auto) 0.2, Basophils # (Auto) 0.0, Sodium Level 137, Potassium Level 3.4L, Chloride Level 94L, Carbon Dioxide Level 37H, Anion Gap 6, Blood Urea Nitrogen 7, Creatinine 0.66, Estimat Glomerular Filtration Rate > 60, BUN/ Creatinine Ratio 11, Glucose Level 113H, Calcium Level 8.4L, Phosphorus Level 1.7L, Magnesium Level 1.8 Microbiology 05/26/18 Blood Culture - Preliminary, Resulted No growth 05/27/18 Gram Stain - Final, Complete 05/27/18 Body Fluid Culture - Final, Complete No growth 06/05/18 C. difficile GDH Antigen & Toxins - Final, Complete 05/29/18 Gram Stain - Final, Complete 05/29/18 Sputum Culture - Final, Complete No growth 05/26/18 Urine Culture - Final, Complete NO GROWTH Assessment/Plan Assessment/Plan Assessment/Plan left lung pneumonia with hydropneumothorax s/p CT placement and ileus. ambulate. cytology per pleural effusion adenocarcinoma oncology consulted severe COPD encouraged to increase activity and work with physical therapy Will advance to dysphagia 2 diet, advance as tolerates Overall poor prognosis Clinical Quality Measures DVT/VTE Risk/Contraindication: Risk Factor Score Per Nursin RFS Level Per Nursing on Admit: 4+=Very High GEORGE TINOCO DO Jun 06, 2018 08:01
[2018-06-06] MEDS: NICOTINE 14 MG (NICODERM) PATCH TD SCH (09:01)
[2018-06-06] MEDS: DOCUSATE SODIUM 100 MG (COLACE) CAP PO SCH ×2 (09:01→21:50)
[2018-06-06] MEDS: FOLIC ACID 1 MG TAB PO SCH (09:04)
--- NOTE | 2018-06-06 09:42 | Diagnostic Imaging Report ---
PROCEDURE: US abdomen complete. TECHNIQUE: Multiple Real-time grayscale images were obtained over the abdomen in various projections. INDICATION: Evaluate for pancreatic mass. FINDINGS: The liver is 11 cm in size. No discrete liver mass is identified. There appears to be a right-sided pleural effusion. There is also some upper abdominal ascites. The gallbladder is without stones or sludge. No wall thickening or biliary ductal dilatation is seen. The portal vein is patent with normal direction of flow. The pancreas is obscured by bowel gas. The spleen is normal in size. The aorta is obscured by bowel gas. The IVC is unremarkable. The right and left kidneys are unremarkable apart from a 17 mm cyst involving the right kidney. IMPRESSION: 1. No evidence of cholelithiasis or acute cholecystitis. 2. Right renal cyst. 3. Right sided pleural effusion and mild upper abdominal ascites. Dictated by: Dictated on workstation # [id number]
--- NOTE | 2018-06-06 11:55 | Physical Therapy Daily Note ---
PT Daily Note-Current Subjective Agrees to PT only after much encouragement. Refused PT at first attempt earlier in the day. Transfers Functional [place] Measure 0=Not Assessed/NA 4=Minimal Assistance 1=Total Assistance 5=Supervision or Setup 2=Maximal Assistance 6=Modified [place] 3=Moderate Assistance 7=Complete IndependenceIRFPAI Quality Coding Scale 6 Independent with activity with or without an assistive device 5 Patient requires set up or clean up by helper. Patient completes activity by themselves 4 Supervision or touching assist (CGA). [place] provide cues , steadying assist 3 The helper provides less than half the effort to complete the activity 2 The helper provides more than half the effort to complete the activity 1 Dependent. The helper does all the effort to complete an activity 7 Patient refused to complete or attempt activity 9 The patient did not perform the activity before the current illness or injury 88 Not attempted due to Medical conditions or safety concerns Transfers (B, C, W/C) (FIM): 4 (CGA for safety) Supine to/from Sit: 4 Sit to/from Stand: 4 Weight Bearing Right Lower Extremity: Right Full Weight Bearing Left Lower Extremity: Left Full Weight Bearing Gait Training Gait (FIM): 4 Distance (FIM): 3=150 ft Distance: 200 ft Gait Level of Assist: 4 Gait Persons Needed: 1 Gait Assistive Device: FWW slow gait and tends to keep head down. decreased step length and shuffled. Treatments Gait . Up in chair post treatment with oxygen in situ , chair alarm activated. Lunch ordered. Assessment Needs encouragement to participate. Steady with gait and transfers. PT Short Term Goals Short Term Goals Time Frame: Jun 06, 2018 Transfers (B,C,W/C) (FIM): 5 Gait (FIM): 2 Gait Distance Comment: 50' Gait Level of Assist: 5 Gait Assistive Device: FWW PT Plan Problem List Problem List: Activity Tolerance, Functional Strength, Safety Treatment/Plan Treatment Plan: Continue Plan of Care Treatment Plan: Bed Mobility, Education, Functional Activity Sissy, Functional Strength, Gait, Safety, Therapeutic Exercise, Transfers Treatment Duration: Jun 06, 2018 Frequency: 6 times per week Estimated Hrs Per Day: .25 hour per day (15-30') Patient and/or Family Agrees t: Yes Safety Risks/Education Patient Education: Safety Issues Teaching Recipient: Patient Teaching Methods: Discussion Response to Teaching: Reinforcement Needed Time/GCodes Time In: 1135 Time Out: 1150 Total Billed Treatment Time: 15 Total Billed Treatment visit Gt 15 AL MITCHELL PT Jun 06, 2018 11:55
[2018-06-06] MEDS: LORazepam INJ 2 MG/ML (ATIVAN) VIAL IVP PRN ×2 (13:35→17:34)
[2018-06-06] MEDS ORDERED: TROUGH ORDER-PHARMACY XX NR (14:00)
--- NOTE | 2018-06-06 14:28 | Progress Note-Hospitalist ---
Subjective HPI/CC On Admission Date Seen by Provider: Jun 06, 2018 Time Seen by Provider: 14:23 The patient is a 62-year-old white male who presented to the emergency room last night with complaints of shortness of breath. The patient reported that he had begun to note shortness of breath about 2 months ago and it has steadily gotten worse. He had at least 2 contacts with walk-in clinics and oral antibiotics were prescribed. This did not seem to help. He denied fever or chills. He stopped smoking during this period of time. He reports that he had about a [id number] smoking history to that point. Workup in the emergency room showed a total whiteout of the left lung field with deviation of the trachea to the right. The air bronchogram showed at least patency of the very proximal portion of the left mainstem bronchus. He has no past history of heart disease. Subjective/Events-last exam Pt is awake and sitting up in chair. Requesting to go back to bed. He denies any complains. He is unsure if breathing of abdominal is better. Objective Exam Vital Signs Vital Signs Date Time Temp Pulse Resp B/P (MAP) Pulse Ox O2 Delivery O2 Flow Rate FiO2 06/06/18 13:00 109 06/06/18 11:51 97.0 18 157/72 (100) 96 Nasal Cannula 5.00 06/05/18 08:45 50 Capillary Refill : Less Than 3 Seconds General Appearance: No Apparent Distress, Chronically ill Respiratory: No Respiratory Distress, Decreased Breath Sounds Cardiovascular: Regular Rate, Rhythm, No Murmur Extremity: No Calf Tenderness, No Pedal Edema Neurologic/Psychiatric: Alert, Oriented x3 Results/Procedures Lab Laboratory Tests 06/06/18 06:15 Patient resulted labs reviewed. 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 Decreasing oxygen requirement (2) Ileus Status: Acute Assessment & Plan: Continue lactulose and reglan Cont simethicone for gas Surgery consulted, appreciate recs Small bowel follow through shows ileus and cannot rule out distal obstruction Now having BMs (3) Hyponatremia Status: Resolved Assessment & Plan: Na 137 today (4) Alcoholism Status: Chronic Assessment & Plan: Continue on ativan and Gabapentin for withdrawal CIWA protocol (5) Pneumonia Status: Acute Assessment & Plan: Continue on abx as above Cultures negative Qualifiers: Pneumonia type: due to unspecified organism Laterality: left Lung location: unspecified part of lung Qualified Codes: J18.9 - Pneumonia, unspecified organism (6) Hypertension Status: Acute Assessment & Plan: Trend, improving control Continue nitro paste Qualifiers: Hypertension type: unspecified Qualified Codes: I10 - Essential (primary) hypertension (7) Lung cancer Assessment & Plan: malignant pleural effusion CT chest shows no mass cytology consistent with adenocarcinoma-lung primary Qualifiers: Laterality: unspecified laterality Lung location: unspecified part of lung Qualified Codes: C34.90 - Malignant neoplasm of unspecified part of unspecified bronchus or lung (8) Counseling regarding end of life decision making Assessment & Plan: Patient had very poor prognosis as has been discussed with him multiples by myself, Dr Matute, Dr Hair, and Palliative Care RN I have attempted to explain this with patient and when asked if he could explain his current problem he was unable and then asked to be left alone He has multiple times stated he wants to sleep and be left alone and has refused treatments and indicated desire to remove invasive treatments (NG tube, etc) I do not believe patient has the capacity to understand the gravity of his illness and make decisions with that information I do not believe that he would benefit from further invasive measures including intubation or PPV I have discussed this with Dr Hair, Dr Worthy, and Thanh Matute and we all agree that a CODE BLUE or intubation would be medically futile DNR placed I would recommend comfort measures only Ethics consult requested- will continue to monitor and if no further improvement will likely switch to comfort measures only Clinical Quality Measures DVT/VTE Risk/Contraindication: Risk Factor Score Per Nursin RFS Level Per Nursing on Admit: 4+=Very High DANG ULLOA MD Jun 06, 2018 14:28
[2018-06-06] MEDS: TAMSULOSIN 0.4 MG (FLOMAX) CAP PO SCH (17:35)
[2018-06-07] VITALS: BP 130/67
[2018-06-07] MEDS: LORazepam INJ 2 MG/ML (ATIVAN) VIAL IVP PRN (00:48)
[2018-06-07] MEDS: RT-ALBUTEROL/IPRATROPIUM 3 ML (DUONEB) VIAL INH SCH ×4 (02:26→20:30)
[2018-06-07] MEDS: meTOprolol 5 MG/5 ML (LOPRESSOR) VIAL IV SCH (03:26)
[2018-06-07] MEDS: GABAPENTIN 100 MG (NEURONTIN) CAP PO SCH ×4 (03:45→21:13)
[2018-06-07 04:00] VITALS: BP 128/69
[2018-06-07] MEDS: PIPERACILLIN SODIUM/TAZOBACTAM 4.5 GM in NS (IVPB) 100 ML IV SCH ×3 (05:08→20:08)
[2018-06-07] MEDS: MULTIVIT W/MINERALS TAB (THERAGRAN M) PO SCH (06:43)
[2018-06-07] MEDS ORDERED: KCL 20 MEQ TAB (K-DUR) PO NR (07:53)
[2018-06-07 08:00] VITALS: BP 175/85
--- NOTE | 2018-06-07 08:46 | Pulmonary Progress Note ---
Subjective Time Seen by a Provider: 08:44 Sepsis Event Evaluation Height, Weight, BMI Height: 5'6.00" Weight: 156lbs. 3.0oz. 70.470410th; 25.2 BMI Method:Stated Exam Exam Vital Signs Date Time Temp Pulse Resp B/P (MAP) Pulse Ox O2 Delivery O2 Flow Rate FiO2 06/07/18 08:00 96.1 92 18 175/85 (115) 98 Nasal Cannula 4.00 06/07/18 07:00 95 06/07/18 04:00 97.4 97 16 128/69 (88) 97 Nasal Cannula 4.00 06/07/18 02:27 92 Nasal Cannula 4.00 06/07/18 00:58 99 06/07/18 00:00 97.7 96 18 130/67 (88) 91 Nasal Cannula 4.00 06/06/18 22:38 80 Room Air 6.00 06/06/18 20:00 High Flow N/C 4.00 06/06/18 19:40 97.3 95 20 162/77 (105) 97 Nasal Cannula 4.00 06/06/18 19:13 102 06/06/18 15:30 98.2 95 16 134/70 (91) 98 Nasal Cannula 4.00 06/06/18 15:14 98 Nasal Cannula 6.00 06/06/18 13:00 109 06/06/18 11:51 97.0 104 18 157/72 (100) 96 Nasal Cannula 5.00 06/06/18 08:45 High Flow N/C 6.00 I & O 06/07/18 07:00 Intake Total 645 ml Output Total 450 ml Balance 195 ml Height & Weight Height: 5'6.00" Weight: 156lbs. 3.0oz. [id number]; 25.2 BMI Method:Stated General Appearance: No Apparent Distress, WD/WN HEENT: PERRL/EOMI Neck: Full Range of Motion Respiratory: Decreased Breath Sounds, Other (on Vapotherm) Cardiovascular: Regular Rate, Rhythm, No Murmur Capillary Refill: Less Than 3 Seconds Gastrointestinal: normal bowel sounds, non tender, soft, distended (Minimal) Extremity: No Calf Tenderness, No Pedal Edema Neurologic/Psychiatric: Alert, Oriented x3 Skin: Mottled Lymphatic: No Adenopathy Results Lab Laboratory Tests 06/06/18 06:15 Assessment/Plan Assessment/Plan S/P large left pleural effusion with opacification of left lung and mass/ compression effect r/o cancer -Doubt infection/lung abscess however will add Vanco and zosyn for PPX. 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 will monitor clinically Ileus -pt had BM this AM -surgery following tobacco use/marijuana use -education Pt's prognosis is very poor. He is now DNR. TYLER PAINTING DO Jun 07, 2018 08:46
--- NOTE | 2018-06-07 08:51 | Progress Note-Hospitalist ---
Subjective HPI/CC On Admission Date Seen by Provider: Jun 07, 2018 Time Seen by Provider: 08:45 The patient is a 62-year-old white male who presented to the emergency room last night with complaints of shortness of breath. The patient reported that he had begun to note shortness of breath about 2 months ago and it has steadily gotten worse. He had at least 2 contacts with walk-in clinics and oral antibiotics were prescribed. This did not seem to help. He denied fever or chills. He stopped smoking during this period of time. He reports that he had about a [id number] smoking history to that point. Workup in the emergency room showed a total whiteout of the left lung field with deviation of the trachea to the right. The air bronchogram showed at least patency of the very proximal portion of the left mainstem bronchus. He has no past history of heart disease. Subjective/Events-last exam Pt sitting in bed eating biscuits and gravy. Unsure if breathing or abdominal better when asked. Unsure if having BMs though 6 documented from yesterday. Requests to DC home and informed not medically optimized at this time for discharge. Objective Exam Vital Signs Vital Signs Date Time Temp Pulse Resp B/P (MAP) Pulse Ox O2 Delivery O2 Flow Rate FiO2 06/07/18 08:00 96.1 92 18 175/85 (115) 98 Nasal Cannula 4.00 06/05/18 08:45 50 Capillary Refill : Less Than 3 Seconds General Appearance: No Apparent Distress, Chronically ill Respiratory: No Accessory Muscle Use, No Respiratory Distress, Decreased Breath Sounds, Other (on oxygen via NC) Cardiovascular: Regular Rate, Rhythm, No Murmur Gastrointestinal: Normal Bowel Sounds, Non Tender, Soft, Distended (mild and improved) Neurologic/Psychiatric: Other (alert and oriented to major details only) Results/Procedures Lab Patient resulted labs reviewed. 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 Decreasing oxygen requirement- down to 4lpm today but has documented oxygen saturation of 80% last night (2) Ileus Status: Acute Assessment & Plan: Improving Continue lactulose and Reglan as needed Cont simethicone for gas Surgery consulted, appreciate recs (3) Hyponatremia Status: Resolved Assessment & Plan: Resolved (4) Alcoholism Status: Chronic Assessment & Plan: Continue on ativan- oral ativan added as well (5) Pneumonia Status: Acute Assessment & Plan: Continue on abx as above Cultures negative Qualifiers: Pneumonia type: due to unspecified organism Laterality: left Lung location: unspecified part of lung Qualified Codes: J18.9 - Pneumonia, unspecified organism (6) Hypertension Status: Acute Assessment & Plan: Well controlled Switch IV metoprolol to oral Qualifiers: Hypertension type: unspecified Qualified Codes: I10 - Essential (primary) hypertension (7) Lung cancer Assessment & Plan: malignant pleural effusion CT chest shows no mass cytology consistent with adenocarcinoma-lung primary Qualifiers: Laterality: unspecified laterality Lung location: unspecified part of lung Qualified Codes: C34.90 - Malignant neoplasm of unspecified part of unspecified bronchus or lung (8) Counseling regarding end of life decision making Assessment & Plan: Patient had very poor prognosis as has been discussed with him multiples by myself, Dr Matute, Dr Hair, and Palliative Care RN I have attempted to explain this with patient and when asked if he could explain his current problem he was unable and then asked to be left alone He has multiple times stated he wants to sleep and be left alone and has refused treatments and indicated desire to remove invasive treatments (NG tube, etc) I do not believe patient has the capacity to understand the gravity of his illness and make decisions with that information I do not believe that he would benefit from further invasive measures including intubation or PPV I have discussed this with Dr Hair, Dr Worthy, and Thanh Matute and we all agree that a CODE BLUE or intubation would be medically futile DNR placed and further follow up by [place] Supervisor and social work he has assented to this Ethics consult placed- appreciate assistance (9) Discharge planning issues Assessment & Plan: Patient improving with resolution of his ileus Will need oxygen and likely SNF at discharge I am still unsure if patient has the capacity to make his own decisions in regards to grave nature of his disease If continues to improve and discharge form hospital foreseeable will likely need to pursue guardianship Clinical Quality Measures DVT/VTE Risk/Contraindication: Risk Factor Score Per Nursin RFS Level Per Nursing on Admit: 4+=Very High DANG ULLOA MD Jun 07, 2018 08:51
[2018-06-07] MEDS: risperiDONE 0.25 MG (RisperDAL) TAB PO SCH ×2 (10:31→20:08)
[2018-06-07] MEDS: DOCUSATE SODIUM 100 MG (COLACE) CAP PO SCH ×2 (10:31→20:08)
[2018-06-07] MEDS: meTOprolol TARTRATE 25 MG (LOPRESSOR) TABLET PO SCH ×2 (10:31→20:08)
[2018-06-07] MEDS: NICOTINE 14 MG (NICODERM) PATCH TD SCH (10:31)
[2018-06-07] MEDS: FOLIC ACID 1 MG TAB PO SCH (10:31)
[2018-06-07] MEDS: LORazepam 0.5 MG (ATIVAN) TABLET PO PRN (11:33)
--- NOTE | 2018-06-07 11:44 | Physical Therapy Daily Note ---
PT Daily Note-Current Subjective Pt sleeping upon arrival. Pt declined treatment at 10:25 and 1055am. Nurse present encouraged pt participation. Pt refused all attempts for ther ex and walking with this [employer]. Pain rated 8/10 in back. Transfers Functional [place] Measure 0=Not Assessed/NA 4=Minimal Assistance 1=Total Assistance 5=Supervision or Setup 2=Maximal Assistance 6=Modified [place] 3=Moderate Assistance 7=Complete IndependenceIRFPAI Quality Coding Scale 6 Independent with activity with or without an assistive device 5 Patient requires set up or clean up by helper. Patient completes activity by themselves 4 Supervision or touching assist (CGA). [place] provide cues , steadying assist 3 The helper provides less than half the effort to complete the activity 2 The helper provides more than half the effort to complete the activity 1 Dependent. The helper does all the effort to complete an activity 7 Patient refused to complete or attempt activity 9 The patient did not perform the activity before the current illness or injury 88 Not attempted due to Medical conditions or safety concerns Weight Bearing Right Lower Extremity: Right Full Weight Bearing Left Lower Extremity: Left Full Weight Bearing PT Short Term Goals Short Term Goals Time Frame: Jun 06, 2018 Transfers (B,C,W/C) (FIM): 5 Gait (FIM): 2 Gait Distance Comment: 50' Gait Level of Assist: 5 Gait Assistive Device: FWW PT Plan Treatment/Plan Treatment Plan: Continue Plan of Care Treatment Plan: Bed Mobility, Education, Functional Activity Sissy, Functional Strength, Gait, Safety, Therapeutic Exercise, Transfers Treatment Duration: Jun 06, 2018 Frequency: 6 times per week Estimated Hrs Per Day: .25 hour per day (15-30') Patient and/or Family Agrees t: Yes Time/GCodes Time In: 1055 Time Out: 1100 Total Billed Treatment Time: 0 Total Billed Treatment No treatment rendered MARYAN HOUSTON CPTA Jun 07, 2018 11:44
[2018-06-07 12:00] VITALS: BP 162/77
[2018-06-07] MEDS: HYDROcodone/APAP 5 MG/325 MG (LORTAB) TAB PO PRN ×3 (12:09→23:10)
--- NOTE | 2018-06-07 12:12 | Progress Note (SOAP) ---
Subjective Date Seen by a Provider: Jun 07, 2018 Time Seen by a Provider: 10:15 Subjective/Events-last exam and reports nausea but no episodes of vomiting. Having bowel movements. Respiratory status unchanged Review of Systems General: Fatigue, Malaise HEENT: No Head Aches, No Eye Pain, No Ear Pain, No Dysphasia, No Sinus Congestion, No Post Nasal Drip, No Sore Throat Pulmonary: Dyspnea, Cough Cardiovascular: No: Chest Pain, Palpitations, Orthopnea, Paroxysmal Noc. Dyspnea, Edema, Lt Headedness Gastrointestinal: Other Genitourinary: No Dysuria, No Frequency, No Incontinence, No Hematuria, No Retention Musculoskeletal: back pain Neurological: Weakness Objective Exam Vital Signs Date Time Temp Pulse Resp B/P (MAP) Pulse Ox O2 Delivery O2 Flow Rate FiO2 06/07/18 08:37 High Flow N/C 4.00 06/07/18 08:00 96.1 92 18 175/85 (115) 98 Nasal Cannula 4.00 06/07/18 07:00 95 06/07/18 04:00 97.4 97 16 128/69 (88) 97 Nasal Cannula 4.00 06/07/18 02:27 92 Nasal Cannula 4.00 06/07/18 00:58 99 06/07/18 00:00 97.7 96 18 130/67 (88) 91 Nasal Cannula 4.00 06/06/18 22:38 80 Room Air 6.00 06/06/18 20:00 High Flow N/C 4.00 06/06/18 19:40 97.3 95 20 162/77 (105) 97 Nasal Cannula 4.00 06/06/18 19:13 102 06/06/18 15:30 98.2 95 16 134/70 (91) 98 Nasal Cannula 4.00 06/06/18 15:14 98 Nasal Cannula 6.00 06/06/18 13:00 109 I & O 06/07/18 07:00 Intake Total 645 ml Output Total 450 ml Balance 195 ml Capillary Refill : Less Than 3 Seconds General Appearance: Mild Distress Respiratory: Crackles, Decreased Breath Sounds Cardiovascular: Regular Rate, Rhythm Gastrointestinal: non tender, soft Neurologic/Psychiatric: Alert, Oriented x3 Skin: Warm/Dry Results Lab Microbiology 05/26/18 Blood Culture - Preliminary, Resulted No growth 05/27/18 Gram Stain - Final, Complete 05/27/18 Body Fluid Culture - Final, Complete No growth 06/05/18 C. difficile GDH Antigen & Toxins - Final, Complete 05/29/18 Gram Stain - Final, Complete 05/29/18 Sputum Culture - Final, Complete No growth 05/26/18 Urine Culture - Final, Complete NO GROWTH Assessment/Plan Assessment/Plan Assess & Plan/Chief Complaint gentleman with malignant left pleural effusion. Staging evaluations pending. Ileus, improving. Final Diagnosis malignant pleural effusion.ileus, resolving Clinical Quality Measures DVT/VTE Risk/Contraindication: Risk Factor Score Per Nursin RFS Level Per Nursing on Admit: 4+=Very High ANGUS AL MD Jun 07, 2018 12:12
[2018-06-07 16:00] VITALS: BP 159/75
[2018-06-07] MEDS: TAMSULOSIN 0.4 MG (FLOMAX) CAP PO SCH (17:19)
[2018-06-08] VITALS (7 sets, daily range): BP systolic 168–186; BP diastolic 74–90
[2018-06-08] MEDS: LORazepam 0.5 MG (ATIVAN) TABLET PO PRN ×3 (02:07→15:53)
[2018-06-08] MEDS: PIPERACILLIN SODIUM/TAZOBACTAM 4.5 GM in NS (IVPB) 100 ML IV SCH ×3 (04:26→20:32)
[2018-06-08] MEDS: GABAPENTIN 100 MG (NEURONTIN) CAP PO SCH ×4 (04:30→21:12)
[2018-06-08] MEDS: HYDROcodone/APAP 5 MG/325 MG (LORTAB) TAB PO PRN ×3 (06:20→20:31)
[2018-06-08] MEDS: MULTIVIT W/MINERALS TAB (THERAGRAN M) PO SCH (06:20)
--- NOTE | 2018-06-08 06:40 | Pulmonary Progress Note ---
Subjective Time Seen by a Provider: 08:16 Subjective/Events-last exam Pt eating breakfast. No complications noted. Sepsis Event Evaluation Height, Weight, BMI Height: 5'6.00" Weight: 155lbs. 9.0oz. 70.813343aj; 25.2 BMI Method:Stated Exam Exam Vital Signs Date Time Temp Pulse Resp B/P (MAP) Pulse Ox O2 Delivery O2 Flow Rate FiO2 06/08/18 00:29 97.8 90 20 168/74 (105) 97 Nasal Cannula 4.00 06/07/18 20:30 97 Nasal Cannula 4.00 06/07/18 20:00 High Flow N/C 3.00 06/07/18 16:00 97.7 88 24 159/75 (103) 99 Nasal Cannula 4.00 06/07/18 15:47 90 Nasal Cannula 4.00 06/07/18 12:00 97.0 86 18 162/77 (105) 91 Nasal Cannula 4.00 06/07/18 08:37 High Flow N/C 4.00 06/07/18 08:00 96.1 92 18 175/85 (115) 98 Nasal Cannula 4.00 06/07/18 07:00 95 I & O 06/08/18 07:00 Intake Total 2450 ml Output Total 425 ml Balance 2025 ml Height & Weight Height: 5'6.00" Weight: 155lbs. 9.0oz. 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 -zosyn -Cytology from pleural fluid is positive for adenocarcinoma -Oncology is consulted -CA19-9 is also elevated -Oncology following -Cultures are negative Adenocarcinom - EGFR is negative -CA 19-9 is positive PT has trapped lung - this is not a true PTX -Will continue to monitor ILD with Pulmonary edema and pleural effusion -Secondary to trapped lung left pleural effusion will continue to reaccumulate. will monitor clinically tobacco use/marijuana use -education TYLER PAINTING DO Jun 08, 2018 06:40
--- NOTE | 2018-06-08 07:12 | Progress Note-Hospitalist ---
Subjective HPI/CC On Admission Date Seen by Provider: Jun 08, 2018 Time Seen by Provider: 07:07 The patient is a 62-year-old white male who presented to the emergency room last night with complaints of shortness of breath. The patient reported that he had begun to note shortness of breath about 2 months ago and it has steadily gotten worse. He had at least 2 contacts with walk-in clinics and oral antibiotics were prescribed. This did not seem to help. He denied fever or chills. He stopped smoking during this period of time. He reports that he had about a [id number] smoking history to that point. Workup in the emergency room showed a total whiteout of the left lung field with deviation of the trachea to the right. The air bronchogram showed at least patency of the very proximal portion of the left mainstem bronchus. He has no past history of heart disease. Subjective/Events-last exam Pt reports doing on but still having "moments" with his breathing. Unable to describe what those moments are and if he is having one now. No other complaints or concerns today. Objective Exam Vital Signs Vital Signs Date Time Temp Pulse Resp B/P (MAP) Pulse Ox O2 Delivery O2 Flow Rate FiO2 06/08/18 00:29 97.8 90 20 168/74 (105) 97 Nasal Cannula 4.00 06/05/18 08:45 50 Capillary Refill : Less Than 3 Seconds General Appearance: No Apparent Distress, Chronically ill Respiratory: No Respiratory Distress, Decreased Breath Sounds, Other (on 4lpm NC) Cardiovascular: Regular Rate, Rhythm, No Murmur Gastrointestinal: Normal Bowel Sounds, Non Tender, Soft; No Distended, No Guarding Results/Procedures Lab Patient resulted labs reviewed. 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 Oxygen requirement remains stable at 4lpm today (2) Ileus Status: Acute Assessment & Plan: Improving Continue lactulose and Reglan as needed Cont simethicone for gas Surgery consulted, appreciate recs Continue to have frequent BMs (3) Hyponatremia Status: Resolved Assessment & Plan: Resolved (4) Alcoholism Status: Chronic Assessment & Plan: Continue on ativan- oral ativan added as well (5) Pneumonia Status: Acute Assessment & Plan: Continue on abx as above Cultures negative Qualifiers: Pneumonia type: due to unspecified organism Laterality: left Lung location: unspecified part of lung Qualified Codes: J18.9 - Pneumonia, unspecified organism (6) Hypertension Status: Acute Assessment & Plan: Continue Metoprolol- dose increased Qualifiers: Hypertension type: unspecified Qualified Codes: I10 - Essential (primary) hypertension (7) Lung cancer Assessment & Plan: malignant pleural effusion CT chest shows no mass cytology consistent with adenocarcinoma-lung primary Repeat CXR in AM Qualifiers: Laterality: unspecified laterality Lung location: unspecified part of lung Qualified Codes: C34.90 - Malignant neoplasm of unspecified part of unspecified bronchus or lung (8) Counseling regarding end of life decision making Assessment & Plan: Patient haspoor prognosis as has been discussed with him multiples by myself, Dr Matute, Dr Hair, and Palliative Care RN I have attempted to explain this with patient and when asked if he could explain his current problem he was unable and then asked to be left alone He has multiple times stated he wants to sleep and be left alone and has refused treatments and indicated desire to remove invasive treatments (NG tube, etc) I do not believe patient has the capacity to understand the gravity of his illness and make decisions with that information I do not believe that he would benefit from further invasive measures including intubation or PPV I have discussed this with Dr Hair, Dr Worthy, and Thanh Matute and we all agree that a CODE BLUE or intubation would be medically futile DNR placed and further follow up by Needle Valve Operator and social work he has assented to this Ethics consult placed- appreciate assistance (9) Discharge planning issues Assessment & Plan: Patient improving with resolution of his ileus Will need oxygen and likely SNF at discharge I am still unsure if patient has the capacity to make his own decisions in regards to grave nature of his disease If continues to improve and if discharge from hospital foreseeable will likely need to pursue guardianship Clinical Quality Measures DVT/VTE Risk/Contraindication: Risk Factor Score Per Nursin RFS Level Per Nursing on Admit: 4+=Very High DANG ULLOA MD Jun 08, 2018 07:12
[2018-06-08] MEDS: RT-ALBUTEROL/IPRATROPIUM 3 ML (DUONEB) VIAL INH SCH ×3 (07:30→21:56)
[2018-06-08] MEDS: risperiDONE 0.25 MG (RisperDAL) TAB PO SCH ×2 (08:26→20:31)
[2018-06-08] MEDS: FOLIC ACID 1 MG TAB PO SCH (08:27)
[2018-06-08] MEDS: DOCUSATE SODIUM 100 MG (COLACE) CAP PO SCH ×2 (08:27→20:31)
[2018-06-08] MEDS: NICOTINE 14 MG (NICODERM) PATCH TD SCH (08:28)
[2018-06-08] MEDS: meTOprolol TARTRATE 50 MG (LOPRESSOR) TAB PO SCH ×2 (08:55→21:12)
--- NOTE | 2018-06-08 13:40 | Progress Note-Standard ---
Standard Progress Note Progress Notes/Assess & Plan Date Seen by a Provider: Jun 08, 2018 Time Seen by a Provider: 11:35 Progress/Assessment & Plan ileus resolved. Management of malignant pleural effusion pending Final Diagnosis ileus. Malignant pleural effusion ANGUS AL MD Jun 08, 2018 13:40
[2018-06-08] MEDS: TAMSULOSIN 0.4 MG (FLOMAX) CAP PO SCH (17:44)
[2018-06-08] MEDS: ENALAPRILAT 2.5 MG/2 ML (VASOTEC) VIAL IV PRN (21:13)
[2018-06-08] MEDS: guaiFENesin/CODEINE (ROBITUSSIN AC) 10ML UDC PO PRN (22:52)
[2018-06-09] VITALS: BP 134/59
[2018-06-09] MEDS: RT-ALBUTEROL/IPRATROPIUM 3 ML (DUONEB) VIAL INH SCH ×4 (03:02→18:52)
[2018-06-09] MEDS: GABAPENTIN 100 MG (NEURONTIN) CAP PO SCH ×4 (04:14→20:58)
[2018-06-09] MEDS: PIPERACILLIN SODIUM/TAZOBACTAM 4.5 GM in NS (IVPB) 100 ML IV SCH ×3 (04:17→20:57)
[2018-06-09] MEDS: MULTIVIT W/MINERALS TAB (THERAGRAN M) PO SCH (05:52)
[2018-06-09 06:07] LABS: BASOPHILS % (AUTO) 1 % (0-10); EOSINOPHILS # (AUTO) 0.2 10^3/uL (0.0-0.3); EOSINOPHILS % (AUTO) 2 % (0-10); HEMATOCRIT 38 % (40-54); LYMPHOCYTES % (AUTO) 13 % (12-44); MEAN CORPUSCULAR HEMOGLOBIN 31 PG (25-34); MEAN CORPUSCULAR HGB CONC 32 G/DL (32-36); MEAN CORPUSCULAR VOLUME 97 FL (80-99); MEAN PLATELET VOLUME 8.4 FL (7.4-10.4); MONOCYTES % (AUTO) 12 % (0-12); NEUTROPHILS # (AUTO) 5.7 X 10^3 (1.8-7.8); NEUTROPHILS % (AUTO) 72 % (42-75); PLATELET COUNT 217 10^3/uL (130-400); RED BLOOD COUNT 3.86 10^6/uL (4.35-5.85); RED CELL DISTRIBUTION WIDTH 12.9 % (10.0-14.5); WHITE BLOOD COUNT 7.9 10^3/uL (4.3-11.0)
[2018-06-09 06:24] LABS: BUN/CREATININE RATIO 6; CALCIUM 7.9 MG/DL (8.5-10.1); CARBON DIOXIDE 34 MMOL/L (21-32); CHLORIDE 95 MMOL/L (98-107); CREATININE SERUM 0.69 MG/DL (0.60-1.30); GFR ESTIMATED > 60; GLUCOSE 91 MG/DL (70-105); POTASSIUM 3.1 MMOL/L (3.6-5.0); SODIUM 138 MMOL/L (135-145)
[2018-06-09 08:00] VITALS: BP 179/88
[2018-06-09] MEDS: meTOprolol TARTRATE 50 MG (LOPRESSOR) TAB PO SCH ×2 (08:09→21:03)
[2018-06-09] MEDS: FOLIC ACID 1 MG TAB PO SCH (08:09)
[2018-06-09] MEDS: HYDROcodone/APAP 5 MG/325 MG (LORTAB) TAB PO PRN (08:09)
[2018-06-09] MEDS: risperiDONE 0.25 MG (RisperDAL) TAB PO SCH ×2 (08:09→21:05)
[2018-06-09] MEDS: NICOTINE 14 MG (NICODERM) PATCH TD SCH (08:10)
[2018-06-09] MEDS: DOCUSATE SODIUM 100 MG (COLACE) CAP PO SCH ×2 (08:10→20:58)
[2018-06-09] MEDS: guaiFENesin/CODEINE (ROBITUSSIN AC) 10ML UDC PO PRN ×3 (08:10→21:16)
--- NOTE | 2018-06-09 08:19 | Diagnostic Imaging Report ---
INDICATION: Shortness of breath. TIME OF EXAM: 06:39 a.m. Correlation is made with prior study from 06/05/2018. Opacification of the middle and lower third of the left chest is again noted consistent with infiltrate and pleural fluid. Upper left lung zone shows normal aeration. There is some increasing infiltrate in the right upper lobe and right perihilar region since prior. No pneumothorax is seen. IMPRESSION: Stable infiltrate and pleural fluid on the left with increasing right-sided infiltrate when compared with exam four days earlier. Dictated by: Dictated on workstation # [id number]
--- NOTE | 2018-06-09 08:22 | Pulmonary Progress Note ---
Subjective Time Seen by a Provider: 08:22 Subjective/Events-last exam Labs and radiology reviewed. PT wants to go home. Sepsis Event Evaluation Height, Weight, BMI Height: 5'6.00" Weight: 150lbs. 2.0oz. 68.440200nb; 25.2 BMI Method:Stated Exam Exam Vital Signs Date Time Temp Pulse Resp B/P (MAP) Pulse Ox O2 Delivery O2 Flow Rate FiO2 06/09/18 00:00 98.0 81 18 134/59 (84) 96 Nasal Cannula 4.00 06/08/18 22:30 104 172/80 (110) 06/08/18 21:57 96 Nasal Cannula 4.00 06/08/18 21:04 101 182/90 (120) 06/08/18 20:00 Nasal Cannula 3.00 06/08/18 16:30 172/78 (109) 06/08/18 15:40 97.9 90 20 186/83 (117) 98 Nasal Cannula 4.00 06/08/18 14:42 101 97 32 06/08/18 08:35 Nasal Cannula 3.00 I & O 06/09/18 07:00 Intake Total 2252 ml Output Total 2750 ml Balance -498 ml Height & Weight Height: 5'6.00" Weight: 150lbs. 2.0oz. 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 -zosyn -Cytology from pleural fluid is positive for adenocarcinoma -Oncology is consulted -CA19-9 is also elevated -Oncology following -Cultures are negative Adenocarcinom - EGFR is negative -CA 19-9 is positive PT has trapped lung - this is not a true PTX -Will continue to monitor ILD with Pulmonary edema and pleural effusion -Secondary to trapped lung left pleural effusion will continue to reaccumulate. will monitor clinically tobacco use/marijuana use -education TYLER PAINTING DO Jun 09, 2018 08:22
--- NOTE | 2018-06-09 09:57 | Physical Therapy Daily Note ---
PT Daily Note-Current Subjective Pt was awake in bed watching tv when PT arrived. Pt agreed to get out of bed and walk with therapy. Pain Numeric Pain Scale: 0-No Pain Location: No Pain Reported Mental Status Patient Orientation: Confused, Mumbles Attachments: Oxygen, IV Transfers Functional [place] Measure 0=Not Assessed/NA 4=Minimal Assistance 1=Total Assistance 5=Supervision or Setup 2=Maximal Assistance 6=Modified [place] 3=Moderate Assistance 7=Complete IndependenceIRFPAI Quality Coding Scale 6 Independent with activity with or without an assistive device 5 Patient requires set up or clean up by helper. Patient completes activity by themselves 4 Supervision or touching assist (CGA). [place] provide cues , steadying assist 3 The helper provides less than half the effort to complete the activity 2 The helper provides more than half the effort to complete the activity 1 Dependent. The helper does all the effort to complete an activity 7 Patient refused to complete or attempt activity 9 The patient did not perform the activity before the current illness or injury 88 Not attempted due to Medical conditions or safety concerns Transfers (B, C, W/C) (FIM): 4 Scootin Rollin Supine to/from Sit: 5 Sit to/from Stand: 5 Weight Bearing Right Lower Extremity: Right Full Weight Bearing Left Lower Extremity: Left Full Weight Bearing Gait Training Gait (FIM): 4 Distance (FIM): 3=150 ft Distance: 150' Gait Level of Assist: 4 Gait Persons Needed: 1 Gait Assistive Device: FWW Exercises Supine Ex: Heel Slides, Scooting Supine Reps: 10 Seated Therapy Exercises: Kicking activity Seated Reps: 10 Standing: Marching Standing Reps: 20 Assessment Pt was able to ambulate for 150' with a FWW requiring CGA. Patient did not show any signs of fatigue during ambulation but did need to stop frequently to clear airways of phlegm. Pt returned to room and completed LE in standing, sitting and supine. Pt will continue to benefit from therapy to maintain current level of function. PT Short Term Goals Short Term Goals Time Frame: Jun 06, 2018 Transfers (B,C,W/C) (FIM): 5 Gait (FIM): 2 Gait Distance Comment: 50' Gait Level of Assist: 5 Gait Assistive Device: FWW PT Plan Problem List Problem List: Activity Tolerance, Functional Strength, Safety, Balance, Gait, Transfer, Bed Mobility, ROM Treatment/Plan Treatment Plan: Continue Plan of Care Treatment Plan: Bed Mobility, Education, Functional Activity Sissy, Functional Strength, Gait, Safety, Therapeutic Exercise, Transfers Treatment Duration: Jun 06, 2018 Frequency: 6 times per week Estimated Hrs Per Day: .25 hour per day (15-30') Patient and/or Family Agrees t: Yes Time/GCodes Time In: 910 Time Out: 933 Total Billed Treatment Time: 23 Total Billed Treatment 1 visit FA x 2 - 23' JENA STEINER PT Jun 09, 2018 09:57
[2018-06-09] MEDS: LORazepam 0.5 MG (ATIVAN) TABLET PO PRN ×2 (12:26→20:58)
[2018-06-09 15:40] VITALS: BP 131/62
--- NOTE | 2018-06-09 17:07 | Progress Note-Hospitalist ---
Progress Note Progress Notes/Assess & Plan Date Seen 06/09/18 Time Seen by Provider: 17:04 Assessment & Plan The patient is a 62-year-old white male known to me from his admission. He has subsequently had a chest tube placed which evacuated some 3700 MLS of fluid. Ultimately cytology showed adenocarcinoma. He is making some progress and is off high flow oxygen and on nasal cannula oxygen. He remains very weak. He lives alone and will require support at discharge. We are currently going to explore these options. Physical exam: He looks better than I last saw him. Lungs show some dullness on the left. Chest x-ray now shows some evidence of fluid in the base on the right as well. CV is regular. Abdomen is soft. Impression: Left pleural effusion. 2.status post left chest tube. 3.adenocarcinoma Plan: Continue present regimen. 2.discharge planning. MITZI MACKENZIE MD Jun 09, 2018 17:07
[2018-06-09] MEDS: TAMSULOSIN 0.4 MG (FLOMAX) CAP PO SCH (17:27)
--- NOTE | 2018-06-09 21:05 | Progress Note ---
Subjective Date Seen by a Provider: Jun 09, 2018 Time Seen by a Provider: 11:30 Subjective/Events-last exam Patient feeling better today. He is having bowel movements that are liquid to soft. He states that he is tolerating better with diet. He is not having any nausea or vomiting. Patient breathing is okay. Denies any nausea vomiting fever sweats chills shortness of breath or chest pain. Objective Exam Vital Signs Date Time Temp Pulse Resp B/P (MAP) Pulse Ox O2 Delivery O2 Flow Rate FiO2 06/09/18 18:54 94 Nasal Cannula 4.00 06/09/18 15:40 99.1 98 16 131/62 (85) 93 Nasal Cannula 4.00 06/09/18 15:02 93 Nasal Cannula 4.00 06/09/18 09:59 95 Nasal Cannula 4.00 06/09/18 08:15 Nasal Cannula 3.00 06/09/18 08:00 98.9 101 22 179/88 (118) 90 Nasal Cannula 4.00 06/09/18 00:00 98.0 81 18 134/59 (84) 96 Nasal Cannula 4.00 06/08/18 22:30 104 172/80 (110) 06/08/18 21:57 96 Nasal Cannula 4.00 06/08/18 21:04 101 182/90 (120) I & O 06/09/18 07:00 Intake Total 2252 ml Output Total 2750 ml Balance -498 ml Capillary Refill : Less Than 3 Seconds General Appearance: No Apparent Distress, Chronically ill HEENT: PERRL/EOMI Neck: Full Range of Motion Respiratory: Crackles, Decreased Breath Sounds Cardiovascular: Regular Rate, Rhythm Gastrointestinal: non tender, soft; No distended Extremity: No Calf Tenderness, No Pedal Edema Neurologic/Psychiatric: Alert, Oriented x3 Skin: Warm/Dry Lymphatic: No Adenopathy Results Lab Laboratory Tests 06/09/18 05:45: White Blood Count 7.9, Red Blood Count 3.86L, Hemoglobin 12.0L, Hematocrit 38L, Mean Corpuscular Volume 97, Mean Corpuscular Hemoglobin 31, Mean Corpuscular Hemoglobin Concent 32, Red Cell Distribution Width 12.9, Platelet Count 217, Mean Platelet Volume 8.4, Neutrophils (%) (Auto) 72, Lymphocytes (%) (Auto) 13, Monocytes (%) (Auto) 12, Eosinophils (%) (Auto) 2, Basophils (%) (Auto) 1, Neutrophils # (Auto) 5.7, Lymphocytes # (Auto) 1.0, Monocytes # (Auto) 1.0, Eosinophils # (Auto) 0.2, Basophils # (Auto) 0.0, Sodium Level 138, Potassium Level 3.1L, Chloride Level 95L, Carbon Dioxide Level 34H, Anion Gap 9, Blood Urea Nitrogen 4L, Creatinine 0.69, Estimat Glomerular Filtration Rate > 60, BUN/ Creatinine Ratio 6, Glucose Level 91, Calcium Level 7.9L Microbiology 05/26/18 Blood Culture - Preliminary, Resulted No growth 05/27/18 Gram Stain - Final, Complete 05/27/18 Body Fluid Culture - Final, Complete No growth 06/05/18 C. difficile GDH Antigen & Toxins - Final, Complete 05/29/18 Gram Stain - Final, Complete 05/29/18 Sputum Culture - Final, Complete No growth 05/26/18 Urine Culture - Final, Complete NO GROWTH Assessment/Plan Assessment/Plan Assessment/Plan Malignant left pleural effusion-adenocarcinoma Ileusresolved No surgical intervention at this time. Discharge planning and will await final decisions on treatment of malignant pleural effusion. Clinical Quality Measures DVT/VTE Risk/Contraindication: Risk Factor Score Per Nursin RFS Level Per Nursing on Admit: 4+=Very High GEORGE TINOCO DO Jun 09, 2018 21:05
[2018-06-09 23:30] VITALS: BP 160/74
[2018-06-10] MEDS: RT-ALBUTEROL/IPRATROPIUM 3 ML (DUONEB) VIAL INH SCH ×4 (01:58→19:49)
[2018-06-10] MEDS: GABAPENTIN 100 MG (NEURONTIN) CAP PO SCH ×4 (03:20→20:49)
[2018-06-10] MEDS: guaiFENesin/CODEINE (ROBITUSSIN AC) 10ML UDC PO PRN (03:20)
[2018-06-10] MEDS: PIPERACILLIN SODIUM/TAZOBACTAM 4.5 GM in NS (IVPB) 100 ML IV SCH (05:50)
[2018-06-10] MEDS: MULTIVIT W/MINERALS TAB (THERAGRAN M) PO SCH (06:39)
--- NOTE | 2018-06-10 07:14 | Pulmonary Progress Note ---
Subjective Time Seen by a Provider: 07:51 Subjective/Events-last exam Pt has no complaints however he has been running a fever. Sepsis Event Evaluation Height, Weight, BMI Height: 5'6.00" Weight: 150lbs. 11.0oz. 68.319664fd; 25.2 BMI Method:Stated Exam Exam Vital Signs Date Time Temp Pulse Resp B/P (MAP) Pulse Ox O2 Delivery O2 Flow Rate FiO2 06/10/18 01:59 96 Nasal Cannula 4.00 06/10/18 00:54 100.1 06/09/18 23:30 100.4 98 16 160/74 (102) 95 Nasal Cannula 4.00 06/09/18 20:00 Nasal Cannula 3.00 06/09/18 18:54 94 Nasal Cannula 4.00 06/09/18 15:40 99.1 98 16 131/62 (85) 93 Nasal Cannula 4.00 06/09/18 15:02 93 Nasal Cannula 4.00 06/09/18 09:59 95 Nasal Cannula 4.00 06/09/18 08:15 Nasal Cannula 3.00 06/09/18 08:00 98.9 101 22 179/88 (118) 90 Nasal Cannula 4.00 I & O 06/10/18 07:00 Intake Total 1760 ml Output Total 2450 ml Balance -690 ml Height & Weight Height: 5'6.00" Weight: 150lbs. 11.0oz. 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 -zosyn -Cytology from pleural fluid is positive for adenocarcinoma -Oncology is consulted -CA19-9 is also elevated -Oncology following - repeat chen cultures Fever r/o infection -Repeat labs, and chen cultures -Currently on Zosyn Adenocarcinom - EGFR is negative -CA 19-9 is positive PT has trapped lung - this is not a true PTX -Will continue to monitor ILD with Pulmonary edema and pleural effusion -Secondary to trapped lung left pleural effusion will continue to reaccumulate. will monitor clinically tobacco use/marijuana use -education TYLER PAINTING DO Jun 10, 2018 07:14
[2018-06-10 07:51] LABS: BASOPHILS % (AUTO) 0 % (0-10); EOSINOPHILS % (AUTO) 0 % (0-10); HEMATOCRIT 37 % (40-54); HEMOGLOBIN 11.7 G/DL (13.3-17.7); LYMPHOCYTES # (AUTO) 0.7 X 10^3 (1.0-4.0); LYMPHOCYTES % (AUTO) 10 % (12-44); MEAN CORPUSCULAR HEMOGLOBIN 31 PG (25-34); MEAN CORPUSCULAR HGB CONC 32 G/DL (32-36); MEAN CORPUSCULAR VOLUME 96 FL (80-99); MEAN PLATELET VOLUME 8.5 FL (7.4-10.4); MONOCYTES % (AUTO) 13 % (0-12); NEUTROPHILS # (AUTO) 5.6 X 10^3 (1.8-7.8); NEUTROPHILS % (AUTO) 77 % (42-75); PLATELET COUNT 197 10^3/uL (130-400); RED BLOOD COUNT 3.82 10^6/uL (4.35-5.85); RED CELL DISTRIBUTION WIDTH 12.8 % (10.0-14.5); WHITE BLOOD COUNT 7.3 10^3/uL (4.3-11.0)
[2018-06-10 08:00] VITALS: BP 169/86
[2018-06-10 08:11] LABS: ALANINE AMINOTRANSFERASE 11 U/L (0-55); ALBUMIN 2.5 GM/DL (3.2-4.5); ALKALINE PHOSPHATASE 62 U/L (40-136); BILIRUBIN,TOTAL 0.5 MG/DL (0.1-1.0); BUN/CREATININE RATIO 6; CALCIUM 8.1 MG/DL (8.5-10.1); CARBON DIOXIDE 36 MMOL/L (21-32); CHLORIDE 90 MMOL/L (98-107); CREATININE SERUM 0.68 MG/DL (0.60-1.30); GFR ESTIMATED > 60; GLUCOSE 116 MG/DL (70-105); MAGNESIUM 1.4 MG/DL (1.8-2.4); PHOSPHORUS 1.9 MG/DL (2.3-4.7); POTASSIUM 2.9 MMOL/L (3.6-5.0); SODIUM 135 MMOL/L (135-145); TOTAL PROTEIN 5.4 GM/DL (6.4-8.2)
[2018-06-10] MEDS: risperiDONE 0.25 MG (RisperDAL) TAB PO SCH ×2 (08:13→20:48)
[2018-06-10] MEDS: FOLIC ACID 1 MG TAB PO SCH (08:13)
[2018-06-10] MEDS: meTOprolol TARTRATE 50 MG (LOPRESSOR) TAB PO SCH ×2 (08:13→20:48)
[2018-06-10] MEDS: NICOTINE 14 MG (NICODERM) PATCH TD SCH (08:14)
[2018-06-10] MEDS: DOCUSATE SODIUM 100 MG (COLACE) CAP PO SCH ×2 (08:19→20:49)
[2018-06-10 08:37] LABS: BILIRUBIN,URINE NEGATIVE (NEGATIVE); CLARITY,URINE CLEAR; COLOR,URINE YELLOW; GLUCOSE, URINE (UA) NEGATIVE (NEGATIVE); KETONES,URINE NEGATIVE (NEGATIVE); LEUKOCYTE ESTERASE ,URINE NEGATIVE (NEGATIVE); NITRITE,URINE NEGATIVE (NEGATIVE); PH,URINE 8 (5-9); PROTEIN,URINE NEGATIVE (NEGATIVE); UROBILINOGEN,URINE NORMAL (NORMAL)
[2018-06-10 08:50] LABS: BACTERIA,URINE NEGATIVE /HPF; SQUAMOUS EPITHELIAL CELL,UR RARE /HPF
--- NOTE | 2018-06-10 10:52 | Physical Therapy Daily Note ---
PT Daily Note-Current Subjective Patient reports he wants to go home. PT discussed with patient, safety concerns and his inability to safely care for self and patient agrees and states he will go to an NH if needed. Pain Numeric Pain Scale: 0-No Pain Location: No Pain Reported Mental Status Patient Orientation: Person, Time, Situation Attachments: Oxygen (4L) Transfers Functional [place] Measure 0=Not Assessed/NA 4=Minimal Assistance 1=Total Assistance 5=Supervision or Setup 2=Maximal Assistance 6=Modified [place] 3=Moderate Assistance 7=Complete IndependenceIRFPAI Quality Coding Scale 6 Independent with activity with or without an assistive device 5 Patient requires set up or clean up by helper. Patient completes activity by themselves 4 Supervision or touching assist (CGA). [place] provide cues , steadying assist 3 The helper provides less than half the effort to complete the activity 2 The helper provides more than half the effort to complete the activity 1 Dependent. The helper does all the effort to complete an activity 7 Patient refused to complete or attempt activity 9 The patient did not perform the activity before the current illness or injury 88 Not attempted due to Medical conditions or safety concerns Transfers (B, C, W/C) (FIM): 5 Scootin Rollin Supine to/from Sit: 5 Sit to/from Stand: 5 Bed to/from Chair: 5 Weight Bearing Right Lower Extremity: Right Full Weight Bearing Left Lower Extremity: Left Full Weight Bearing Gait Training Gait (FIM): 5 Distance (FIM): 3=150 ft Distance: 300' x 2 Gait Level of Assist: 5 Gait Assistive Device: FWW Patient requires time to complete task due to SOA and fatigue. He is slightly unsteady with ability to self correct. Patient requires skilled verbal instruction for body placement in FWW Assessment Patient is up in recliner with chair alarm activated. From a PT standpoint, patient would benefit from extended care facility to ensure safe return to home. Education with patient on safety concerns implemented and patient did agree with this PT. PT Short Term Goals Short Term Goals Time Frame: Jun 06, 2018 Transfers (B,C,W/C) (FIM): 5 Gait (FIM): 2 Gait Distance Comment: 50' Gait Level of Assist: 5 Gait Assistive Device: FWW PT Art Conservator Goals Art Conservator Goals PT [facility] Goals Time Frame: Jun 21, 2018 Transfers (B,C,W/C) (FIM): 6 Gait (FIM): 6 Gait distance (FIM): 3=150 ft Distance: 300' Gait Level of Assist: 6 Gait Assistive Device: None, FWW PT Plan Treatment/Plan Treatment Plan: Continue Plan of Care Treatment Plan: Bed Mobility, Education, Functional Activity Sissy, Functional Strength, Gait, Safety, Therapeutic Exercise, Transfers Treatment Duration: Jun 21, 2018 Frequency: 6 times per week Estimated Hrs Per Day: .25 hour per day (15-30') Patient and/or Family Agrees t: Yes Discharge Recommendations Therapy D/C Recommendations: Long Term Placement, Longterm (TCU/NH) Time/GCodes Time In: 1012 Time Out: 1035 Total Billed Treatment Time: 23 Total Billed Treatment 1 visit GT x 2 23 min JENA STEINER PT Jun 10, 2018 10:52
[2018-06-10] MEDS ORDERED: KCL 20 MEQ TAB (K-DUR) PO NR (11:30)
[2018-06-10] MEDS: ENOXAPARIN 40 MG/0.4 ML (LOVENOX) SYR SC SCH (11:43)
--- NOTE | 2018-06-10 12:01 | Progress Note-Hospitalist ---
Progress Note Progress Notes/Assess & Plan Date Seen 06/10/18 Time Seen by Provider: 11:56 Assessment & Plan The patient appears weaker today than yesterday. Examination of yesterday's chest x-ray shows the pleural effusion on the left to have recurred up two thirds of the lung volume vertically. There is congestion in the right perihilar area as well. Harmony Sellers RN from palliative care and I discussed frankly the patient's prospects. It is his goal just to get home to his apartment. He has hopes of getting to his aunt's home in [facility] for Thanksgiving which may be achievable. To have his best chance at performance he has several close friends who may be able to assist him at the apartment and it is strongly recommended that the sign on with hospice. Physical exam: He looks old and tired today. Lungs show minimum breath sounds on the left. CV is regular. Abdomen is soft. Extremities show no pedal edema. Impression: Adenocarcinoma left lung. 2.recurring large left pleural effusion. 3.generalized cachexia. Plan: Explore hospice and discharge possibilities. Focused Exam Lactate Level 06/10/18 07:35: Lactic Acid Level 0.74 MITZI MACKENZIE MD Jun 10, 2018 12:01
[2018-06-10 15:40] VITALS: BP 199/84
[2018-06-10] MEDS: HYDROcodone/APAP 5 MG/325 MG (LORTAB) TAB PO PRN (16:11)
[2018-06-10 16:55] VITALS: BP 176/75
[2018-06-10] MEDS: TAMSULOSIN 0.4 MG (FLOMAX) CAP PO SCH (17:28)
--- NOTE | 2018-06-10 18:35 | Progress Note ---
Subjective Date Seen by a Provider: Jun 10, 2018 Time Seen by a Provider: 10:26 Subjective/Events-last exam Patient feeling weaker today. He is passing flatus and having bowel movements. Breathing maybe a little bit more difficulty with. Patient running fever low- grade. Patient not using assessment from her very much. Chest x-ray from yesterday showing increasing pleural effusion left and increasing infiltrate on the right. Focused Exam Lactate Level 06/10/18 07:35: Lactic Acid Level 0.74 Objective Exam Vital Signs Date Time Temp Pulse Resp B/P (MAP) Pulse Ox O2 Delivery O2 Flow Rate FiO2 06/10/18 17:13 100.8 06/10/18 16:55 176/75 (108) 06/10/18 16:55 100.8 06/10/18 16:30 76 Room Air 06/10/18 16:11 101.4 06/10/18 15:40 100.7 103 16 199/84 (122) 96 Nasal Cannula 4.00 06/10/18 08:25 Nasal Cannula 3.00 06/10/18 08:00 99.3 122 20 169/86 (113) 91 Nasal Cannula 4.00 06/10/18 01:59 96 Nasal Cannula 4.00 06/10/18 00:54 100.1 06/09/18 23:30 100.4 98 16 160/74 (102) 95 Nasal Cannula 4.00 06/09/18 20:00 Nasal Cannula 3.00 06/09/18 18:54 94 Nasal Cannula 4.00 I & O 06/10/18 07:00 Intake Total 1760 ml Output Total 2450 ml Balance -690 ml Capillary Refill : Less Than 3 Seconds General Appearance: Anxious, Chronically ill HEENT: PERRL/EOMI Neck: Full Range of Motion Respiratory: Crackles, Decreased Breath Sounds Cardiovascular: Regular Rate, Rhythm Gastrointestinal: non tender, soft Extremity: No Calf Tenderness, No Pedal Edema Neurologic/Psychiatric: Alert, Oriented x3 Skin: Warm/Dry Lymphatic: No Adenopathy Results Lab Laboratory Tests 06/10/18 07:35: White Blood Count 7.3, Red Blood Count 3.82L, Hemoglobin 11.7L, Hematocrit 37L, Mean Corpuscular Volume 96, Mean Corpuscular Hemoglobin 31, Mean Corpuscular Hemoglobin Concent 32, Red Cell Distribution Width 12.8, Platelet Count 197, Mean Platelet Volume 8.5, Neutrophils (%) (Auto) 77H, Lymphocytes (%) (Auto) 10L , Monocytes (%) (Auto) 13H, Eosinophils (%) (Auto) 0, Basophils (%) (Auto) 0, Neutrophils # (Auto) 5.6, Lymphocytes # (Auto) 0.7L, Monocytes # (Auto) 1.0, Eosinophils # (Auto) 0.0, Basophils # (Auto) 0.0, Sodium Level 135, Potassium Level 2.9L, Chloride Level 90L, Carbon Dioxide Level 36H, Anion Gap 9, Blood Urea Nitrogen 4L, Creatinine 0.68, Estimat Glomerular Filtration Rate > 60, BUN/ Creatinine Ratio 6, Glucose Level 116H, Lactic Acid Level 0.74, Calcium Level 8.1L, Corrected Calcium 9.3, Phosphorus Level 1.9L, Magnesium Level 1.4L, Total Bilirubin 0.5, Aspartate Amino Transf (AST/SGOT) 21, Alanine Aminotransferase ( ALT/SGPT) 11, Alkaline Phosphatase 62, B-Type Natriuretic Peptide 713.1H, Total Protein 5.4L, Albumin 2.5L 06/10/18 08:15: Urine Color YELLOW, Urine Clarity CLEAR, Urine pH 8, Urine Specific [place] 1.010L, Urine Protein NEGATIVE, Urine Glucose (UA) NEGATIVE, Urine Ketones NEGATIVE, Urine Nitrite NEGATIVE, Urine Bilirubin NEGATIVE, Urine Urobilinogen NORMAL, Urine Leukocyte Esterase NEGATIVE, Urine RBC (Auto) 1+H, Urine RBC 2-5H , Urine WBC NONE, Urine Squamous Epithelial Cells RARE, Urine Crystals NONE, Urine Bacteria NEGATIVE, Urine Casts NONE, Urine Mucus NEGATIVE, Urine Culture Indicated NO Microbiology 05/26/18 Blood Culture - Preliminary, Resulted No growth 05/27/18 Gram Stain - Final, Complete 05/27/18 Body Fluid Culture - Final, Complete No growth 06/05/18 C. difficile GDH Antigen & Toxins - Final, Complete 05/29/18 Gram Stain - Final, Complete 05/29/18 Sputum Culture - Final, Complete No growth 05/26/18 Urine Culture - Final, Complete NO GROWTH Assessment/Plan Assessment/Plan Assessment/Plan Malignant left pleural effusion-adenocarcinoma Ileusresolved We'll repeat chest x-ray in the morning. Would consider thoracentesis. Patient considering hospice. If continues to have recurrent pleural effusion could also benefit from Pleurx catheter. Clinical Quality Measures DVT/VTE Risk/Contraindication: Risk Factor Score Per Nursin RFS Level Per Nursing on Admit: 4+=Very High GEORGE TINOCO DO Jun 10, 2018 18:35
[2018-06-11 00:06] VITALS: BP 170/77
[2018-06-11] MEDS: LORazepam 0.5 MG (ATIVAN) TABLET PO PRN ×2 (02:15→21:07)
[2018-06-11] MEDS: LORazepam INJ 2 MG/ML (ATIVAN) VIAL IVP PRN (03:22)
[2018-06-11] MEDS: RT-ALBUTEROL/IPRATROPIUM 3 ML (DUONEB) VIAL INH SCH ×4 (03:27→21:20)
[2018-06-11] MEDS: GABAPENTIN 100 MG (NEURONTIN) CAP PO SCH ×5 (04:12→21:07)
[2018-06-11] MEDS: MULTIVIT W/MINERALS TAB (THERAGRAN M) PO SCH (06:40)
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
[2018-06-11 07:21] VITALS: BP 118/50
[2018-06-11] MEDS: meTOprolol TARTRATE 50 MG (LOPRESSOR) TAB PO SCH ×2 (08:56→21:07)
[2018-06-11] MEDS: DOCUSATE SODIUM 100 MG (COLACE) CAP PO SCH ×2 (09:45→21:07)
[2018-06-11] MEDS: risperiDONE 0.25 MG (RisperDAL) TAB PO SCH ×2 (09:45→21:08)
[2018-06-11] MEDS: FOLIC ACID 1 MG TAB PO SCH (09:45)
--- NOTE | 2018-06-11 09:52 | Diagnostic Imaging Report ---
Clinical indication: Followup pleural effusion and shortness of air. Exam: Portable chest x-ray upright view. Comparison: Portable chest x-ray dated 06/09/2018. Findings: There is stable diffuse consolidation involving most of the left lung with sparing of the left lung apex. There is slight increased right basilar and inferior perihilar airspace infiltrates. There is slight improved aeration of the right upper lobe infiltrates. Stable calcified granuloma involving the right midlung field. Left pleural effusion may be considered. There is no pneumothorax. Chronic silhouette is obscured. Pulmonary vasculature is stable. Impression: 1: Stable left pleural effusion and diffuse left lung infiltrate. 2: Slight progression of right lung base infiltrate. 3: There is slight improved aeration of the right upper lobe with minimal infiltrate remaining. Dictated by: Dictated on workstation # [id number]
--- NOTE | 2018-06-11 10:23 | Physical Therapy Daily Note ---
PT Daily Note-Current Subjective Pt. up in recliner, one on one care as pt. has been confused and mental status change this past 24 hrs. Pt. states his name is Umesh and that he is in [place] cannot recall where. Pt. states he is seeing birds etc and mumbles frequently. Follows commands only 50-60% of time Pain Comment: no c/o voiced Mental Status Patient Orientation: Confused Attachments: Oxygen (4.5 L) Transfers Functional [place] Measure 0=Not Assessed/NA 4=Minimal Assistance 1=Total Assistance 5=Supervision or Setup 2=Maximal Assistance 6=Modified [place] 3=Moderate Assistance 7=Complete IndependenceIRFPAI Quality Coding Scale 6 Independent with activity with or without an assistive device 5 Patient requires set up or clean up by helper. Patient completes activity by themselves 4 Supervision or touching assist (CGA). [place] provide cues , steadying assist 3 The helper provides less than half the effort to complete the activity 2 The helper provides more than half the effort to complete the activity 1 Dependent. The helper does all the effort to complete an activity 7 Patient refused to complete or attempt activity 9 The patient did not perform the activity before the current illness or injury 88 Not attempted due to Medical conditions or safety concerns Transfers (B, C, W/C) (FIM): 3 sit to stands mod assist, hesitant to come to upright and to weight shift forward, much work on shifting forward to prep for stance Weight Bearing Right Lower Extremity: Right Full Weight Bearing Left Lower Extremity: Left Full Weight Bearing Exercises Seated Therapy Exercises: Ankle pumps, Sit to stand, Long arc quads, Hip flexion, Hip abd/add Seated Reps: 12 Treatments sit to stand x 3 mod assist, pt. required min to mod assist in stance with FWW, wt shift left to right , standing 40- 60 sec at a time Assessment Current Status: Fair Progress pitting edema noted bilat LEs, mottling noted as well kirit and knees and distal PT Short Term Goals Short Term Goals Time Frame: Jun 06, 2018 Transfers (B,C,W/C) (FIM): 5 Gait (FIM): 2 Gait Distance Comment: 50' Gait Level of Assist: 5 Gait Assistive Device: FWW PT Tow Truck Driver Goals Tow Truck Driver Goals PT Penit[facility] Goals Time Frame: Jun 21, 2018 Transfers (B,C,W/C) (FIM): 6 Rollin Gait (FIM): 6 Gait distance (FIM): 3=150 ft Distance: 300' Gait Level of Assist: 6 Gait Assistive Device: None, FWW PT Plan Treatment/Plan Treatment Plan: Continue Plan of Care Treatment Plan: Bed Mobility, Education, Functional Activity Sissy, Functional Strength, Gait, Safety, Therapeutic Exercise, Transfers Treatment Duration: Jun 21, 2018 Frequency: 6 times per week Estimated Hrs Per Day: .25 hour per day (15-30') Patient and/or Family Agrees t: Yes Safety Risks/Education Patient Education: Gait Training, Transfer Techniques, Correct Positioning, Disease Process, Safety Issues Teaching Recipient: Patient Teaching Methods: Demonstration, Discussion Response to Teaching: Unable to Return Demonstration, Unable to Comprehend, Reinforcement Needed confused Time/GCodes Time In: 940 Time Out: 1005 Total Billed Treatment Time: 25 Total Billed Treatment 1,EX10m,FA15m G Codes Necessary: JUDITH Perera EXPERIENCE DESIGN DIRECTOR Jun 11, 2018 10:23
--- NOTE | 2018-06-11 10:54 | Progress Note-Hospitalist ---
Subjective HPI/CC On Admission Date Seen by Provider: Jun 11, 2018 Time Seen by Provider: 09:45 The patient is a 62-year-old white male who presented to the emergency room last night with complaints of shortness of breath. The patient reported that he had begun to note shortness of breath about 2 months ago and it has steadily gotten worse. He had at least 2 contacts with walk-in clinics and oral antibiotics were prescribed. This did not seem to help. He denied fever or chills. He stopped smoking during this period of time. He reports that he had about a 30-[id number]-huew smoking history to that point. Workup in the emergency room showed a total whiteout of the left lung field with deviation of the trachea to the right. The air bronchogram showed at least patency of the very proximal portion of the left mainstem bronchus. He has no past history of heart disease. Subjective/Events-last exam Patient appears to be very declined Confusion noted Overall status is rapidly declining Recommend hospice Recommend comfort care only Review of Systems Neurological: Confusion Focused Exam Lactate Level 06/10/18 07:35: Lactic Acid Level 0.74 Objective Exam Vital Signs Vital Signs Date Time Temp Pulse Resp B/P (MAP) Pulse Ox O2 Delivery O2 Flow Rate FiO2 06/11/18 10:35 100.5 06/11/18 07:21 118 22 118/50 (72) 96 Nasal Cannula 4.00 06/08/18 14:42 32 Capillary Refill : Less Than 3 Seconds General Appearance: No Apparent Distress, Chronically ill, Other (confused, end stage) Respiratory: Chest Non Tender, No Accessory Muscle Use, No Respiratory Distress , Crackles, Decreased Breath Sounds Cardiovascular: Regular Rate, Rhythm, No Edema, No Gallop, No JVD, No Murmur, Normal Peripheral Pulses Neurologic/Psychiatric: Disoriented Skin: Mottled Results/Procedures Lab Patient resulted labs reviewed. Imaging: Reviewed Imaging Report Assessment/Plan Assessment and Plan Assess & Plan/Chief Complaint Assessment: End of life status Plan: Comfort care is recommended Defer to Oncology and Palliative Care Critical Care Critical Care: Critically Ill Patient Diagnosis/Problems Diagnosis/Problems (1) Adenocarcinoma of lung Status: Acute Qualifiers: Laterality: left Qualified Codes: C34.92 - Malignant neoplasm of unspecified part of left bronchus or lung (2) Ileus Status: Resolved Resolution Date/Time: 11/14/18 @ 11:18 (3) Sepsis Status: Resolved Qualifiers: Sepsis type: sepsis due to unspecified organism Qualified Codes: A41.9 - Sepsis, unspecified organism Resolution Date/Time: 05/29/18 @ 11:41 (4) Pneumonia Status: Acute Qualifiers: Pneumonia type: due to unspecified organism Laterality: left Lung location: unspecified part of lung Qualified Codes: J18.9 - Pneumonia, unspecified organism (5) Alcoholism Status: Chronic (6) Alcohol abuse Status: Chronic (7) Pleural effusion associated with pulmonary infection Status: Acute (8) Hyponatremia Status: Resolved Resolution Date/Time: 06/05/18 @ 07:35 (9) Hypertension Status: Acute Qualifiers: Hypertension type: unspecified Qualified Codes: I10 - Essential (primary) hypertension (10) S/P chest tube placement Status: Acute (11) Confusion (12) End of life care Clinical Quality Measures DVT/VTE Risk/Contraindication: Risk Factor Score Per Nursin RFS Level Per Nursing on Admit: 4+=Very High JEANETTE DUNN DO Jun 11, 2018 10:54
[2018-06-11] MEDS: ENOXAPARIN 40 MG/0.4 ML (LOVENOX) SYR SC SCH (11:44)
[2018-06-11] MEDS: NICOTINE 14 MG (NICODERM) PATCH TD SCH (11:44)
[2018-06-11] MEDS ORDERED: LIDOCAINE UROJET 2% GEL 10 ML PKG ONE (14:38)
[2018-06-11 15:32] VITALS: BP 132/64
[2018-06-11] MEDS: TAMSULOSIN 0.4 MG (FLOMAX) CAP PO SCH (18:09)
--- NOTE | 2018-06-11 19:29 | Progress Note ---
Subjective Date Seen by a Provider: Jun 11, 2018 Time Seen by a Provider: 08:05 Subjective/Events-last exam Patient reporting not feeling well. Having difficulty time. Having some confusion. Breathing difficult Having flatus and bowel movements. Denies nausea vomiting sweats chills or chest pain Focused Exam Lactate Level 06/10/18 07:35: Lactic Acid Level 0.74 Objective Exam Vital Signs Date Time Temp Pulse Resp B/P (MAP) Pulse Ox O2 Delivery O2 Flow Rate FiO2 06/11/18 16:45 99.9 06/11/18 15:32 100.0 107 18 132/64 (86) 96 Nasal Cannula 4.00 06/11/18 10:35 100.5 06/11/18 09:41 100.4 06/11/18 08:45 Nasal Cannula 3.00 06/11/18 07:21 99.4 118 22 118/50 (72) 96 Nasal Cannula 4.00 06/11/18 03:29 96 Nasal Cannula 5.00 06/11/18 00:06 98.7 90 16 170/77 (108) 96 Nasal Cannula 4.00 06/10/18 20:43 99.2 06/10/18 20:00 Nasal Cannula 3.00 06/10/18 19:51 96 Nasal Cannula 5.00 I & O 06/11/18 07:00 Intake Total 1540 ml Output Total 150 ml Balance 1390 ml Capillary Refill : Less Than 3 Seconds General Appearance: No Apparent Distress, Chronically ill, Other (confused, end stage) HEENT: PERRL/EOMI Neck: Full Range of Motion Respiratory: Chest Non Tender, No Accessory Muscle Use, No Respiratory Distress , Crackles, Decreased Breath Sounds Cardiovascular: Regular Rate, Rhythm, No Edema, No Gallop, No JVD, No Murmur, Normal Peripheral Pulses Gastrointestinal: non tender, soft Extremity: No Calf Tenderness, No Pedal Edema Neurologic/Psychiatric: Alert; No Oriented x3; Disoriented Skin: Mottled Lymphatic: No Adenopathy Results Lab Microbiology 06/10/18 Blood Culture - Preliminary, Resulted No growth 05/27/18 Gram Stain - Final, Complete 05/27/18 Body Fluid Culture - Final, Complete No growth 06/05/18 C. difficile GDH Antigen & Toxins - Final, Complete 05/29/18 Gram Stain - Final, Complete 05/29/18 Sputum Culture - Final, Complete No growth 05/26/18 Urine Culture - Final, Complete NO GROWTH Assessment/Plan Assessment/Plan Assessment/Plan Malignant left pleural effusion-adenocarcinoma Ileusresolved Patient chest x-ray reviewed. Infiltrates present and effusion stable. Patient has declined since yesterday. No surgical intervention at this time. We'll continue to follow. Clinical Quality Measures DVT/VTE Risk/Contraindication: Risk Factor Score Per Nursin RFS Level Per Nursing on Admit: 4+=Very High GEORGE TINOCO DO Jun 11, 2018 19:29
[2018-06-11] MEDS: HYDROcodone/APAP 5 MG/325 MG (LORTAB) TAB PO PRN (21:07)
[2018-06-12 00:06] VITALS: BP 123/57
[2018-06-12] MEDS: RT-ALBUTEROL/IPRATROPIUM 3 ML (DUONEB) VIAL INH SCH ×3 (02:38→10:55)
[2018-06-12] MEDS: HYDROcodone/APAP 5 MG/325 MG (LORTAB) TAB PO PRN (03:54)
[2018-06-12] MEDS: LORazepam 0.5 MG (ATIVAN) TABLET PO PRN (03:54)
[2018-06-12] MEDS: GABAPENTIN 100 MG (NEURONTIN) CAP PO SCH ×2 (03:54→09:47)
--- NOTE | 2018-06-12 06:51 | Pulmonary Progress Note ---
Subjective Time Seen by a Provider: 06:51 Subjective/Events-last exam PT had urinary retention last night and ayers cath was placed. Sepsis Event Evaluation Height, Weight, BMI Height: 5'6.00" Weight: 151lbs. 8.0oz. 68.692274wv; 25.2 BMI Method:Stated Focused Exam Lactate Level 06/10/18 07:35: Lactic Acid Level 0.74 Exam Exam Vital Signs Date Time Temp Pulse Resp B/P (MAP) Pulse Ox O2 Delivery O2 Flow Rate FiO2 06/12/18 03:48 97 92 06/12/18 03:33 92 Nasal Cannula 2.50 06/12/18 00:06 100.1 97 18 123/57 (79) 96 Nasal Cannula 4.00 06/11/18 21:20 95 Nasal Cannula 2.50 06/11/18 20:00 Nasal Cannula 2.50 06/11/18 16:45 99.9 06/11/18 15:32 100.0 107 18 132/64 (86) 96 Nasal Cannula 4.00 06/11/18 10:35 100.5 06/11/18 09:41 100.4 06/11/18 08:45 Nasal Cannula 3.00 06/11/18 07:21 99.4 118 22 118/50 (72) 96 Nasal Cannula 4.00 I & O 06/12/18 07:00 Intake Total 922 ml Output Total 800 ml Balance 122 ml Height & Weight Height: 5'6.00" Weight: 151lbs. 8.0oz. 68.269395vd; 25.2 BMI Method:Stated General Appearance: No Apparent Distress, Chronically ill, Other (confused, end stage) HEENT: PERRL/EOMI Neck: Full Range of Motion Respiratory: Chest Non Tender, No Accessory Muscle Use, No Respiratory Distress , Crackles, Decreased Breath Sounds Cardiovascular: Regular Rate, Rhythm, No Edema, No Gallop, No JVD, No Murmur, Normal Peripheral Pulses Capillary Refill: Less Than 3 Seconds Gastrointestinal: non tender, soft Extremity: No Calf Tenderness, No Pedal Edema Neurologic/Psychiatric: Alert; No Oriented x3; Disoriented Skin: Mottled Lymphatic: No Adenopathy Results Lab Laboratory Tests 06/10/18 07:35 Assessment/Plan Assessment/Plan 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 -Cytology from pleural fluid is positive for adenocarcinoma -Oncology is consulted -CA19-9 is also elevated -Oncology following persistent fever -repeat chen cultures and CDIff negative, UA is negative -Will start omnicef PO Adenocarcinom - EGFR is negative -CA 19-9 is positive PT has trapped lung - this is not a true PTX -Will continue to monitor ILD with Pulmonary edema and pleural effusion -Secondary to trapped lung left pleural effusion will continue to reaccumulate. will monitor clinically tobacco use/marijuana use -education Possible home with hospice. PT's prognosis is poor. TYLER PAINTING DO Jun 12, 2018 06:51
[2018-06-12] MEDS: MULTIVIT W/MINERALS TAB (THERAGRAN M) PO SCH (07:02)
[2018-06-12 08:00] VITALS: BP 122/71
[2018-06-12] MEDS: NICOTINE 14 MG (NICODERM) PATCH TD SCH (08:44)
[2018-06-12] MEDS ORDERED: CEFDINIR 300 MG (OMNICEF) CAP PO SCH (09:00)
--- NOTE | 2018-06-12 09:11 | Progress Note-Hospitalist ---
Subjective HPI/CC On Admission Date Seen by Provider: Jun 12, 2018 Time Seen by Provider: 10:00 The patient is a 62-year-old white male who presented to the emergency room last night with complaints of shortness of breath. The patient reported that he had begun to note shortness of breath about 2 months ago and it has steadily gotten worse. He had at least 2 contacts with walk-in clinics and oral antibiotics were prescribed. This did not seem to help. He denied fever or chills. He stopped smoking during this period of time. He reports that he had about a [id number] smoking history to that point. Workup in the emergency room showed a total whiteout of the left lung field with deviation of the trachea to the right. The air bronchogram showed at least patency of the very proximal portion of the left mainstem bronchus. He has no past history of heart disease. Subjective/Events-last exam Patient unresponsive today Omnicef started by Dr. Matute for fever and presumed recurrence of pneumonia Advanced cancer End-stage process Recommend comfort care DO NOT RESUSCITATE Refusing all meds Refusing therapy Focused Exam Lactate Level 06/10/18 07:35: Lactic Acid Level 0.74 Objective Exam Vital Signs Vital Signs Date Time Temp Pulse Resp B/P (MAP) Pulse Ox O2 Delivery O2 Flow Rate FiO2 06/12/18 10:55 97 Nasal Cannula 3.50 06/12/18 08:00 97.7 102 14 122/71 (88) 06/08/18 14:42 32 Capillary Refill : Less Than 3 Seconds General Appearance: No Apparent Distress, WD/WN, Chronically ill, Thin, Other ( Unresponsive currently) Respiratory: No Accessory Muscle Use, No Respiratory Distress, Decreased Breath Sounds Results/Procedures Lab Patient resulted labs reviewed. Imaging: Reviewed Imaging Report Assessment/Plan Assessment and Plan Assess & Plan/Chief Complaint Assessment: End of life status Plan: Comfort care is recommended Defer to Oncology and Palliative Care Critical Care Critical Care: Critically Ill Patient Diagnosis/Problems Diagnosis/Problems (1) Adenocarcinoma of lung Status: Acute Qualifiers: Laterality: left Qualified Codes: C34.92 - Malignant neoplasm of unspecified part of left bronchus or lung (2) Ileus Status: Resolved Resolution Date/Time: 06/11/18 @ 11:18 (3) Sepsis Status: Resolved Qualifiers: Sepsis type: sepsis due to unspecified organism Qualified Codes: A41.9 - Sepsis, unspecified organism Resolution Date/Time: 05/29/18 @ 11:41 (4) Pneumonia Status: Acute Qualifiers: Pneumonia type: due to unspecified organism Laterality: left Lung location: unspecified part of lung Qualified Codes: J18.9 - Pneumonia, unspecified organism (5) Alcoholism Status: Chronic (6) Alcohol abuse Status: Chronic (7) Pleural effusion associated with pulmonary infection Status: Acute (8) Hyponatremia Status: Resolved Resolution Date/Time: 06/05/18 @ 07:35 (9) Hypertension Status: Acute Qualifiers: Hypertension type: unspecified Qualified Codes: I10 - Essential (primary) hypertension (10) S/P chest tube placement Status: Acute (11) Confusion (12) End of life care Clinical Quality Measures DVT/VTE Risk/Contraindication: Risk Factor Score Per Nursin RFS Level Per Nursing on Admit: 4+=Very High JEANETTE DUNN DO Jun 12, 2018 09:11
[2018-06-12] MEDS: DOCUSATE SODIUM 100 MG (COLACE) CAP PO SCH (09:46)
[2018-06-12] MEDS: FOLIC ACID 1 MG TAB PO SCH (09:46)
[2018-06-12] MEDS: meTOprolol TARTRATE 50 MG (LOPRESSOR) TAB PO SCH (09:47)
[2018-06-12] MEDS: risperiDONE 0.25 MG (RisperDAL) TAB PO SCH (09:47)
[2018-06-12] MEDS ORDERED: BISACODYL 10 MG SUPP (DULCOLAX) PR PRN (11:45)
[2018-06-12] MEDS ORDERED: ARTIFICAL TEARS 0.4 ML UNIT DOSE (REFRESH PLUS) OU PRN (11:45)
[2018-06-12] MEDS ORDERED: ONDANSETRON 4 MG/2 ML (SDV) Z0FRAN IVP PRN (11:45)
[2018-06-12] MEDS ORDERED: ACETAMINOPHEN 650 MG SUPP (TYLENOL) PR PRN (11:45)
[2018-06-12] MEDS ORDERED: LORazepam INJ 2 MG/ML (ATIVAN) VIAL IVP PRN (11:45)
[2018-06-12] MEDS ORDERED: SALIVA STIMULANT MOUTH SPRAY (BIOTENE) 1.5 OZ MM PRN (11:45)
[2018-06-12] MEDS ORDERED: GLYCOPYRROLATE 0.2 MG/ML (ROBINUL) 2 ML VIAL IV PRN (11:45)
--- NOTE | 2018-06-12 14:09 | Physical Therapy Progress Note ---
Therapy Progress Note PT to dismiss patient from services due to comfort care measures. JENA STEINER PT Jun 12, 2018 14:08
[2018-06-12] MEDS: LORazepam INJ 2 MG/ML (ATIVAN) VIAL IVP PRN ×2 (14:38→21:29)
[2018-06-12] MEDS: IBUPROFEN 600 MG (MOTRIN) TAB PO PRN (14:50)
[2018-06-12 16:29] VITALS: BP 111/54
--- NOTE | 2018-06-12 17:18 | Progress Note ---
Subjective Date Seen by a Provider: Jun 12, 2018 Time Seen by a Provider: 07:30 Subjective/Events-last exam patient lying in bed sleeping. Patient not wanting to wake up. Patient not wanting to be bothered at this time. Focused Exam Lactate Level 06/10/18 07:35: Lactic Acid Level 0.74 Objective Exam Vital Signs Date Time Temp Pulse Resp B/P (MAP) Pulse Ox O2 Delivery O2 Flow Rate FiO2 06/12/18 16:29 100.0 116 16 111/54 (73) 95 Room Air 06/12/18 10:55 97 Nasal Cannula 3.50 06/12/18 08:00 Nasal Cannula 2.50 06/12/18 08:00 97.7 102 14 122/71 (88) 99 Nasal Cannula 4.00 06/12/18 07:32 92 Nasal Cannula 3.50 06/12/18 03:48 97 92 06/12/18 03:33 92 Nasal Cannula 2.50 06/12/18 00:06 100.1 97 18 123/57 (79) 96 Nasal Cannula 4.00 06/11/18 21:20 95 Nasal Cannula 2.50 06/11/18 20:00 Nasal Cannula 2.50 I & O 06/12/18 07:00 Intake Total 922 ml Output Total 800 ml Balance 122 ml Capillary Refill : Less Than 3 Seconds General Appearance: No Apparent Distress, WD/WN, Chronically ill, Thin, Other ( Unresponsive currently) HEENT: PERRL/EOMI Neck: Full Range of Motion Respiratory: No Accessory Muscle Use, No Respiratory Distress, Decreased Breath Sounds Cardiovascular: Regular Rate, Rhythm Gastrointestinal: normal bowel sounds, non tender, soft Extremity: Normal Capillary Refill Neurologic/Psychiatric: Alert, Oriented x3 Skin: Normal Color Lymphatic: No Adenopathy Results Lab Microbiology 06/10/18 Blood Culture - Preliminary, Resulted No growth 05/27/18 Gram Stain - Final, Complete 05/27/18 Body Fluid Culture - Final, Complete No growth 06/05/18 C. difficile GDH Antigen & Toxins - Final, Complete 05/29/18 Gram Stain - Final, Complete 05/29/18 Sputum Culture - Final, Complete No growth 05/26/18 Urine Culture - Final, Complete NO GROWTH Assessment/Plan Assessment/Plan Assessment/Plan Malignant left pleural effusion-adenocarcinoma Ileusresolved patient declining and refusing care overall poor prognosis. No surgical intervention at this time will continue to follow Clinical Quality Measures DVT/VTE Risk/Contraindication: Risk Factor Score Per Nursin RFS Level Per Nursing on Admit: 4+=Very High GEORGE TINOCO DO Jun 12, 2018 17:18
[2018-06-12 19:50] VITALS: BP 112/60
[2018-06-12] MEDS: CEFDINIR 300 MG (OMNICEF) CAP PO SCH (21:28)
[2018-06-13 00:07] VITALS: BP 140/69
[2018-06-13] MEDS: morphine INJ 4 MG/ML 1 ML (VIAL/SYRINGE) IV PRN ×4 (00:27→20:08)
[2018-06-13] MEDS: RT-ALBUTEROL/IPRATROPIUM 3 ML (DUONEB) VIAL INH PRN ×2 (02:55→05:12)
--- NOTE | 2018-06-13 06:55 | Pulmonary Progress Note ---
Sepsis Event Evaluation Height, Weight, BMI Height: 5'6.00" Weight: 154lbs. 8.0oz. 70.591354du; 25.2 BMI Method:Stated Focused Exam Lactate Level 06/10/18 07:35: Lactic Acid Level 0.74 Exam Exam Vital Signs Date Time Temp Pulse Resp B/P (MAP) Pulse Ox O2 Delivery O2 Flow Rate FiO2 06/13/18 05:12 88 Nasal Cannula 4.00 06/13/18 02:55 90 Nasal Cannula 4.00 06/13/18 00:07 99.5 107 16 140/69 (92) 96 Nasal Cannula 4.00 06/12/18 20:00 Nasal Cannula 2.50 06/12/18 19:50 99.5 115 16 112/60 (77) 94 Room Air 06/12/18 19:30 87 Nasal Cannula 4.00 06/12/18 16:29 100.0 116 16 111/54 (73) 95 Room Air 06/12/18 10:55 97 Nasal Cannula 3.50 06/12/18 08:00 Nasal Cannula 2.50 06/12/18 08:00 97.7 102 14 122/71 (88) 99 Nasal Cannula 4.00 06/12/18 07:32 92 Nasal Cannula 3.50 I & O 06/13/18 07:00 Intake Total 620 ml Output Total 1000 ml Balance -380 ml Height & Weight Height: 5'6.00" Weight: 154lbs. 8.0oz. 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 -Cytology from pleural fluid is positive for adenocarcinoma -Oncology is consulted -CA19-9 is also elevated -Oncology following persistent fever -repeat chen cultures and CDIff negative, UA is negative -omnicef PO Adenocarcinom - EGFR is negative -CA 19-9 is positive PT has trapped lung - this is not a true PTX -Will continue to monitor ILD with Pulmonary edema and pleural effusion -Secondary to trapped lung left pleural effusion will continue to reaccumulate. will monitor clinically tobacco use/marijuana use -education Possible home with hospice. PT's prognosis is poor. TYLER PAINTING DO Jun 13, 2018 06:55
[2018-06-13 08:00] VITALS: BP 173/87
[2018-06-13] MEDS: NICOTINE 14 MG (NICODERM) PATCH TD SCH (08:09)
[2018-06-13] MEDS: CEFDINIR 300 MG (OMNICEF) CAP PO SCH ×2 (08:09→19:58)
[2018-06-13] MEDS: IBUPROFEN 600 MG (MOTRIN) TAB PO PRN ×2 (08:55→20:03)
--- NOTE | 2018-06-13 11:06 | Progress Note-Hospitalist ---
Subjective HPI/CC On Admission Date Seen by Provider: Jun 13, 2018 Time Seen by Provider: 10:00 The patient is a 62-year-old white male who presented to the emergency room last night with complaints of shortness of breath. The patient reported that he had begun to note shortness of breath about 2 months ago and it has steadily gotten worse. He had at least 2 contacts with walk-in clinics and oral antibiotics were prescribed. This did not seem to help. He denied fever or chills. He stopped smoking during this period of time. He reports that he had about a [id number] smoking history to that point. Workup in the emergency room showed a total whiteout of the left lung field with deviation of the trachea to the right. The air bronchogram showed at least patency of the very proximal portion of the left mainstem bronchus. He has no past history of heart disease. Subjective/Events-last exam Patient unresponsive but did become alert yesterday afternoon and was lucid Ethics conference regarding this patient to be completed today Very poor prognosis Objective Exam Vital Signs Vital Signs Date Time Temp Pulse Resp B/P (MAP) Pulse Ox O2 Delivery O2 Flow Rate FiO2 06/13/18 08:00 88 Nasal Cannula 4.00 06/13/18 08:00 98.7 110 20 173/87 (115) 06/08/18 14:42 32 Capillary Refill : Less Than 3 Seconds General Appearance: No Apparent Distress, WD/WN, Chronically ill, Other ( Unresponsive) Respiratory: No Accessory Muscle Use, No Respiratory Distress, Crackles, Decreased Breath Sounds Results/Procedures Lab Patient resulted labs reviewed. Imaging: Reviewed Imaging Report Assessment/Plan Assessment and Plan Assess & Plan/Chief Complaint Assessment: End of life status Plan: Comfort care is recommended Defer to Oncology and Palliative Care Critical Care Critical Care: Critically Ill Patient Diagnosis/Problems Diagnosis/Problems (1) Adenocarcinoma of lung Status: Acute Qualifiers: Laterality: left Qualified Codes: C34.92 - Malignant neoplasm of unspecified part of left bronchus or lung (2) Ileus Status: Resolved Resolution Date/Time: 06/11/18 @ 11:18 (3) Sepsis Status: Resolved Qualifiers: Sepsis type: sepsis due to unspecified organism Qualified Codes: A41.9 - Sepsis, unspecified organism Resolution Date/Time: 05/29/18 @ 11:41 (4) Pneumonia Status: Acute Qualifiers: Pneumonia type: due to unspecified organism Laterality: left Lung location: unspecified part of lung Qualified Codes: J18.9 - Pneumonia, unspecified organism (5) Alcoholism Status: Chronic (6) Alcohol abuse Status: Chronic (7) Pleural effusion associated with pulmonary infection Status: Acute (8) Hyponatremia Status: Resolved Resolution Date/Time: 06/05/18 @ 07:35 (9) Hypertension Status: Acute Qualifiers: Hypertension type: unspecified Qualified Codes: I10 - Essential (primary) hypertension (10) S/P chest tube placement Status: Acute (11) Confusion (12) End of life care Clinical Quality Measures DVT/VTE Risk/Contraindication: Risk Factor Score Per Nursin RFS Level Per Nursing on Admit: 4+=Very High JEANETTE DUNN DO Jun 13, 2018 11:06
--- NOTE | 2018-06-13 11:13 | Progress Note ---
Subjective Date Seen by a Provider: Jun 13, 2018 Time Seen by a Provider: 11:10 Subjective/Events-last exam Patient stating he is doing okay. No better than the day before he states. He is tolerating diet. He is passing flatus. He's had no abdominal pain. His breathing is about the same as what its been. Patient not really wanting to participate in any care needs. Objective Exam Vital Signs Date Time Temp Pulse Resp B/P (MAP) Pulse Ox O2 Delivery O2 Flow Rate FiO2 06/13/18 08:00 88 Nasal Cannula 4.00 06/13/18 08:00 98.7 110 20 173/87 (115) 93 Nasal Cannula 4.00 06/13/18 05:12 88 Nasal Cannula 4.00 06/13/18 02:55 90 Nasal Cannula 4.00 06/13/18 00:07 99.5 107 16 140/69 (92) 96 Nasal Cannula 4.00 06/12/18 20:00 Nasal Cannula 2.50 06/12/18 19:50 99.5 115 16 112/60 (77) 94 Room Air 06/12/18 19:30 87 Nasal Cannula 4.00 06/12/18 16:29 100.0 116 16 111/54 (73) 95 Room Air I & O 06/13/18 07:00 Intake Total 620 ml Output Total 1000 ml Balance -380 ml Capillary Refill : Less Than 3 Seconds General Appearance: No Apparent Distress, WD/WN, Chronically ill, Thin, Other ( Unresponsive currently) HEENT: PERRL/EOMI Neck: Full Range of Motion Respiratory: No Accessory Muscle Use, No Respiratory Distress, Decreased Breath Sounds Cardiovascular: Regular Rate, Rhythm Gastrointestinal: normal bowel sounds, non tender, soft Extremity: Normal Capillary Refill Neurologic/Psychiatric: Alert, Oriented x3 Skin: Normal Color Lymphatic: No Adenopathy Results Lab Microbiology 06/10/18 Blood Culture - Preliminary, Resulted No growth 05/27/18 Gram Stain - Final, Complete 05/27/18 Body Fluid Culture - Final, Complete No growth 06/05/18 C. difficile GDH Antigen & Toxins - Final, Complete 05/29/18 Gram Stain - Final, Complete 05/29/18 Sputum Culture - Final, Complete No growth 05/26/18 Urine Culture - Final, Complete NO GROWTH Assessment/Plan Assessment/Plan Assessment/Plan Malignant left pleural effusion-adenocarcinoma Ileusresolved patient overall declining and refusing care overall poor prognosis. No surgical intervention Will sign off at this time call if needed please Clinical Quality Measures DVT/VTE Risk/Contraindication: Risk Factor Score Per Nursin RFS Level Per Nursing on Admit: 4+=Very High GEORGE TINOCO DO Jun 13, 2018 11:13
[2018-06-13] MEDS: LORazepam INJ 2 MG/ML (ATIVAN) VIAL IVP PRN ×2 (13:13→22:34)
[2018-06-13 16:00] VITALS: BP 141/66
[2018-06-14] VITALS: BP 178/65
[2018-06-14] MEDS: LORazepam INJ 2 MG/ML (ATIVAN) VIAL IVP PRN ×2 (03:43→08:01)
--- NOTE | 2018-06-14 06:43 | Pulmonary Progress Note ---
Subjective Time Seen by a Provider: 06:42 Subjective/Events-last exam Pt is awaiting ECF placement. Sepsis Event Evaluation Height, Weight, BMI Height: 5'6.00" Weight: 148lbs. 14.4oz. 67.153890ml; 25.2 BMI Method:Stated Exam Exam Vital Signs Date Time Temp Pulse Resp B/P (MAP) Pulse Ox O2 Delivery O2 Flow Rate FiO2 06/13/18 20:00 Nasal Cannula 4.00 06/13/18 19:02 93 Nasal Cannula 4.00 06/13/18 16:00 97.1 110 20 141/66 (91) 90 Nasal Cannula 4.00 06/13/18 08:00 88 Nasal Cannula 4.00 06/13/18 08:00 98.7 110 20 173/87 (115) 93 Nasal Cannula 4.00 I & O 06/14/18 07:00 Intake Total 1260 ml Output Total 1350 ml Balance -90 ml Height & Weight Height: 5'6.00" Weight: 148lbs. 14.4oz. 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 -Cytology from pleural fluid is positive for adenocarcinoma -Oncology is consulted -CA19-9 is also elevated -Oncology following persistent fever -repeat chen cultures and CDIff negative, UA is negative -omnicef PO Adenocarcinom - EGFR is negative -CA 19-9 is positive PT has trapped lung - this is not a true PTX -Will continue to monitor ILD with Pulmonary edema and pleural effusion -Secondary to trapped lung left pleural effusion will continue to reaccumulate. will monitor clinically tobacco use/marijuana use -education Possible home with hospice. PT's prognosis is poor. He has also been refusing treatment. TYLER PAINTING DO Jun 14, 2018 06:43
[2018-06-14] MEDS: NICOTINE 14 MG (NICODERM) PATCH TD SCH (09:12)
[2018-06-14] MEDS: CEFDINIR 300 MG (OMNICEF) CAP PO SCH ×2 (09:12→20:22)
[2018-06-14 09:31] VITALS: BP 199/100
[2018-06-14] MEDS: IBUPROFEN 600 MG (MOTRIN) TAB PO PRN (11:54)
[2018-06-14 12:00] VITALS: BP 161/80
[2018-06-14] MEDS: morphine INJ 4 MG/ML 1 ML (VIAL/SYRINGE) IV PRN ×2 (12:52→17:58)
--- NOTE | 2018-06-14 14:03 | Progress Note-Hospitalist ---
Progress Note Progress Notes/Assess & Plan Date Seen 06/14/18 Time Seen by Provider: 14:00 Assessment & Plan The patient has now been here 19 days. His course has been steadily downward. Today he pulled out his only IV. Nurses report he is quite confused and agitated at times. Medications were switched to by mouth. Physical exam: He is alert. He did not directly answer any of my questions. He was fiddling with his lunch. Lungs show dullness to percussion in both bases. CV is regular. Extremities show 1+ pedal edema. Impression: Adenocarcinoma with diffuse pleural involvement and recurring pleural effusions. Plan: MITZI MACKENZIE MD Jun 14, 2018 14:03
[2018-06-14] MEDS: HYDROcodone/APAP 10 MG/325 MG (LORTAB) TAB PO PRN ×2 (14:16→20:23)
[2018-06-14 16:10] VITALS: BP 172/79
[2018-06-14] MEDS ORDERED: LORazepam 1 MG (ATIVAN) TAB PO PRN (17:45)
[2018-06-14] MEDS: RT-ALBUTEROL/IPRATROPIUM 3 ML (DUONEB) VIAL INH PRN (22:02)
[2018-06-15] VITALS: BP 147/84
[2018-06-15] MEDS: HYDROcodone/APAP 10 MG/325 MG (LORTAB) TAB PO PRN ×2 (05:04→20:06)
[2018-06-15 08:00] VITALS: BP 174/84
[2018-06-15] MEDS: CEFDINIR 300 MG (OMNICEF) CAP PO SCH ×2 (08:11→20:06)
[2018-06-15] MEDS: NICOTINE 14 MG (NICODERM) PATCH TD SCH (08:11)
[2018-06-15] MEDS: LORazepam INJ 2 MG/ML (ATIVAN) VIAL IVP PRN ×2 (10:46→17:32)
--- NOTE | 2018-06-15 14:23 | Progress Note-Hospitalist ---
Progress Note Progress Notes/Assess & Plan Date Seen 06/15/18 Time Seen by Provider: 14:22 Assessment & Plan The patient does not respond to voice today. His respirations are slow and shallow. Breath sounds are minimal. Impression: end-stage carcinomatosis. 2.end-of-life status MITZI MACKENZIE MD Jun 15, 2018 14:23
[2018-06-15 16:48] VITALS: BP 172/76
[2018-06-16 00:10] VITALS: BP 165/84
[2018-06-16] MEDS: HYDROcodone/APAP 10 MG/325 MG (LORTAB) TAB PO PRN ×2 (00:51→06:03)
--- NOTE | 2018-06-16 07:21 | Pulmonary Progress Note ---
Sepsis Event Evaluation Height, Weight, BMI Height: 5'6.00" Weight: 148lbs. 14.4oz. 67.367599jx; 25.2 BMI Method:Stated Exam Exam Vital Signs Date Time Temp Pulse Resp B/P (MAP) Pulse Ox O2 Delivery O2 Flow Rate FiO2 06/16/18 06:58 Nasal Cannula 4.00 06/16/18 00:10 99.3 108 16 165/84 (111) 93 Nasal Cannula 4.00 06/15/18 20:00 92 Nasal Cannula 4.00 06/15/18 19:53 Nasal Cannula 4.00 06/15/18 16:48 99.1 120 16 172/76 (108) 90 Nasal Cannula 4.00 06/15/18 08:00 88 Nasal Cannula 4.00 06/15/18 08:00 98.6 115 16 174/84 (114) 94 Nasal Cannula 4.00 I & O 06/16/18 07:00 Intake Total 520 ml Output Total 650 ml Balance -130 ml Height & Weight Height: 5'6.00" Weight: 148lbs. 14.4oz. 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 -Cytology from pleural fluid is positive for adenocarcinoma -Oncology is consulted -CA19-9 is also elevated -Oncology following persistent fever -repeat chen cultures and CDIff negative, UA is negative -omnicef PO Adenocarcinom - EGFR is negative -CA 19-9 is positive PT has trapped lung - this is not a true PTX -Will continue to monitor ILD with Pulmonary edema and pleural effusion -Secondary to trapped lung left pleural effusion will continue to reaccumulate. will monitor clinically tobacco use/marijuana use -education Waiting for ECF placement. Probable discharge with hospice. PT's prognosis is poor. He has also been refusing treatment and pulling out IVs. TYLER PAINTING DO Jun 16, 2018 07:21
[2018-06-16 08:00] VITALS: BP 198/91
[2018-06-16] MEDS: CEFDINIR 300 MG (OMNICEF) CAP PO SCH (08:11)
[2018-06-16] MEDS: NICOTINE 14 MG (NICODERM) PATCH TD SCH (08:11)
[2018-06-16] MEDS: morphine INJ 4 MG/ML 1 ML (VIAL/SYRINGE) IV PRN ×2 (12:01→13:55)
--- NOTE | 2018-06-16 12:30 | Progress Note-Hospitalist ---
Subjective HPI/CC On Admission Date Seen by Provider: Jun 16, 2018 Time Seen by Provider: 12:23 The patient is a 62-year-old white male who presented to the emergency room last night with complaints of shortness of breath. The patient reported that he had begun to note shortness of breath about 2 months ago and it has steadily gotten worse. He had at least 2 contacts with walk-in clinics and oral antibiotics were prescribed. This did not seem to help. He denied fever or chills. He stopped smoking during this period of time. He reports that he had about a [id number] smoking history to that point. Workup in the emergency room showed a total whiteout of the left lung field with deviation of the trachea to the right. The air bronchogram showed at least patency of the very proximal portion of the left mainstem bronchus. He has no past history of heart disease. Subjective/Events-last exam Pt was awake when I entered room and appeared to be short of breath. He denied it when asked at first but then admitted he was "lying and very short of breath. " Discussed with him the importance of being honest so we could treat his symptoms appropriately. Discussed end stage process and he stated "What do you mean I'm dying? That's crazy." he states he was unaware that he was suffering from a terminal illness despite numerous conversations with patient from multiple physician's and nurse about his disease process. He did confirm again that he would never want chemo therapy though. Objective Exam Vital Signs Vital Signs Date Time Temp Pulse Resp B/P (MAP) Pulse Ox O2 Delivery O2 Flow Rate FiO2 06/16/18 08:00 97.7 109 14 198/91 (126) 90 Nasal Cannula 4.00 Capillary Refill : Less Than 3 Seconds General Appearance: No Apparent Distress, Chronically ill Respiratory: Other (short shallow breaths) Cardiovascular: Regular Rate, Rhythm, No Murmur Neurologic/Psychiatric: Alert Skin: Other (ashen) Results/Procedures Lab Patient resulted labs reviewed. Imaging: Reviewed Imaging Report Assessment/Plan Assessment and Plan Assess & Plan/Chief Complaint Pleural Effusion Critical Care Critical Care: Critically Ill Patient Diagnosis/Problems Diagnosis/Problems (1) Pleural effusion associated with pulmonary infection Status: Acute Assessment & Plan: Path back and showed malignant cells consistent with adenocarcinoma of likely lung origin Discussed with patient, Oncology consulted Not currently a candidate for chemotherapy at this time Cultures negative from fluid Complete 3 weeks of total abx- will discontinue Trapped lung likely Refusing oxygen (2) Ileus Status: Resolved Assessment & Plan: Resolved Resolution Date/Time: 06/11/18 @ 11:18 am (3) Hyponatremia Status: Resolved Assessment & Plan: Resolved Resolution Date/Time: 06/05/18 @ 7:35 am (4) Pneumonia Status: Resolved Assessment & Plan: Treatment completed Qualifiers: Pneumonia type: due to unspecified organism Laterality: left Lung location: unspecified part of lung Qualified Codes: J18.9 - Pneumonia, unspecified organism Resolution Date/Time: 06/16/18 @ 12:32 pm (5) Lung cancer Assessment & Plan: malignant pleural effusion CT chest shows no mass cytology consistent with adenocarcinoma-lung primary Oncology consulted- not a candidate for chemo currently Qualifiers: Laterality: unspecified laterality Lung location: unspecified part of lung Qualified Codes: C34.90 - Malignant neoplasm of unspecified part of unspecified bronchus or lung (6) End of life care Assessment & Plan: Comfort measures ordered as is in patient's best interest Agreeable to treatment of symptoms No other requests (7) Discharge planning issues Assessment & Plan: Seems to plateau at times in his overall decline Will continue to pursue NH placement should he not progress as expected I am still unsure if patient has the capacity to make his own decisions in regards to grave nature of his disease Clinical Quality Measures DVT/VTE Risk/Contraindication: Risk Factor Score Per Nursin RFS Level Per Nursing on Admit: 4+=Very High DANG ULLOA MD Jun 16, 2018 12:30 pm
[2018-06-16] MEDS: LORazepam INJ 2 MG/ML (ATIVAN) VIAL IVP PRN (13:15)
--- NOTE | 2018-06-16 14:37 | Discharge Summary-Hospitalist ---
Discharge Summary Date of Admission May 26, 2018 at 8:30 pm Date of Discharge Discharge Date: Jun 16, 2018 Admission Diagnosis Large pleural effusion left chest. 2.concern for underlying malignancy. 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 Oncology was consulted but due to his poor clinical status he was unable to have any further work up or treatment options for his cancer. He developed and ileus throughout the admission which slowly but eventually resolved with decompensation and cathartics. He was at times unwilling to participate in conversations about goals of care with providers and thus became the subject of an ethics consult during his admission. Ultimately all of the physicians on his case agreed that as he was unable to clearly express autonomy in his decision making and did not have capacity to make high level decisions it would be in his best interest for him to become a DNR and transfer to comfort measures if he further worsened. He completed 3 weeks of antibiotics and continued to worsen and was transitioned to comfort measures a few days before his ultimate . Discharge Diagnosis Pleural Effusion (1) Pleural effusion associated with pulmonary infection Status: Acute Assessment & Plan: Path back and showed malignant cells consistent with adenocarcinoma of likely lung origin Discussed with patient, Oncology consulted Not currently a candidate for chemotherapy at this time Cultures negative from fluid Complete 3 weeks of total abx- will discontinue Trapped lung likely Refusing oxygen (2) Ileus Status: Resolved Assessment & Plan: Resolved (3) Hyponatremia Status: Resolved Assessment & Plan: Resolved (4) Pneumonia Status: Resolved Assessment & Plan: Treatment completed Qualifiers: Qualified Codes: J18.9 - Pneumonia, unspecified organism (5) Lung cancer Assessment & Plan: malignant pleural effusion CT chest shows no mass cytology consistent with adenocarcinoma-lung primary Oncology consulted- not a candidate for chemo currently Qualifiers: Qualified Codes: C34.90 - Malignant neoplasm of unspecified part of unspecified bronchus or lung (6) End of life care Assessment & Plan: Comfort measures ordered as is in patient's best interest Agreeable to treatment of symptoms No other requests DANG ULLOA MD Jun 16, 2018 14:37
--- NOTE | 2018-06-18 13:47 | Physician Query Clarification ---
PQ-Conflicting Diagnosis Admission/Discharge Admission Date: May 26, 2018 at 20:30 Discharge Date: Jun 16, 2018 at 18:21 The medical record reflects the following clinical scenario: History/Risk Factors: Suspected Sepsis Recent Fever Within 48 Hours: No Infection Criteria Present: None New/Unexplained Altered Menta: No Sepsis Screen: No Definite Risk SIRS Temperature:97.1 Pulse: 122 Respiratory Rate: 20 Laboratory Tests 05/26/18 18:45: White Blood Count 11.0 Blood Pressure / Mean: 05/26/18 18:45: Lactic Acid Level 2.52*H Clinical Findings: [list no more than 2]Suspected Sepsis Recent Fever Within 48 Hours: No Infection Criteria Present: None New/Unexplained Altered Menta: No Sepsis Screen: No Definite Risk SIRS Temperature:97.1 Pulse: 122 Respiratory Rate: 20 Laboratory Tests 05/26/18 18:45: White Blood Count 11.0 Blood Pressure / Mean: 05/26/18 18:45: Lactic Acid Level 2.52*H Treatment: Continue to treat with Rocephin and azithromycin Question: Do you agree with the impression of the [Sepsis] per [Dr Butler (ER)]. Please document a response below. PHYSICIAN RESPONSE Do you agree w/Consulting Dx?: No In responding to this query, please exercise your independent professional judgment. The purpose of this communication is to more accurately reflect the complexity of your patients condition. The fact that a question is asked does not imply that any particular answer is desired or expected. Thank you for your timely response to this clarification. Requestors name: Meri Mathis THIS PHYSICIAN QUERY FORM IS A PERMANENT PART OF THE MEDICAL RECORD DEANNA MATHIS Jun 18, 2018 13:47 DANG ULLOA MD Jun 18, 2018 16:59
--- NOTE | 2018-06-18 14:02 | Physician Query Clarification ---
PQ-Further Specificity Admission/Discharge Admission Date: May 26, 2018 at 20:30 Discharge Date: Jun 16, 2018 at 18:21 The medical record reflects the following clinical scenario: History/Risk Factors: large left pleural effusion Clinical Findings: pneumothorax Treatment: Pulmonary Procedures Date of Procedure Date of Service: May 27, 2018 Chest Tube : Chest Tube Position: Left (US guided) Chest Tube Location: Lateral Chest Size of Occitan Tube (cm): 28 Chest Tube Procedure: betadine prep, sterile drapes applied, sterile dressing applied Anesthesia: 1% Lidocaine Volume Anesthetic (ccs): 10 [place] of [place]: No (gush of pleural fluid) Number of Attempts: 1 Time of Successful Intubation: 07:00 Tube Drainage: pleural vacc to gravity Tube Sutured to Skin: Yes Post Procedure CXR?: Yes (pending ) Question: Can you further specify Pneumonthorax] per the clinical indicators above? Please document below. 1. Pneumothorax secondary to chest tube placement (postprocedural) 2. Pneumothorax NOS 3. Other, with explanation of the clinical findings. 4. Clinically undetermined, no explanation for the clinical findings. PHYSICIAN RESPONSE Can you specify per above: 2 In responding to this query, please exercise your independent professional judgment. The purpose of this communication is to more accurately reflect the complexity of your patients condition. The fact that a question is asked does not imply that any particular answer is desired or expected. Thank you for your timely response to this clarification. Requestors name: Meri Rahman THIS PHYSICIAN QUERY FORM IS A PERMANENT PART OF THE MEDICAL RECORD DEANNA RAHMAN Jun 18, 2018 14:02 DANG ULLOA MD Jun 18, 2018 17:00
== END 2018-06-16 18:21 | disposition expired | DRG 180 ==
LOC: EDUNIT# 15:59 → ER 16:00 → ICU 20:30 → 4TH 06-05 11:07
PROVIDERS: ADMIT Internal Medicine; ATTEND Internal Medicine
PROC: 0W9B30Z Drainage of Left Pleural Cavity with Drainage Device, Percutaneous Approach (ICD-10-PCS; principal; 2018-05-27)
PROC: 0D9670Z Drainage of Stomach with Drainage Device, Via Natural or Artificial Opening (ICD-10-PCS; 2018-06-03)
DX: C34.92 Malignant neoplasm of unspecified part of left bronchus or lung (principal); J91.0 Malignant pleural effusion; J18.1 Lobar pneumonia, unspecified organism; K56.7 Ileus, unspecified; E87.2 Acidosis; E87.1 Hypo-osmolality and hyponatremia; J93.9 Pneumothorax, unspecified; Z66 Do not resuscitate; Z51.5 Encounter for palliative care; R64 Cachexia; F10.231 Alcohol dependence with withdrawal delirium; J45.909 Unspecified asthma, uncomplicated; I16.0 Hypertensive urgency; F41.9 Anxiety disorder, unspecified; M19.91 Primary osteoarthritis, unspecified site; F17.210 Nicotine dependence, cigarettes, uncomplicated; E86.9 Volume depletion, unspecified; E87.70 Fluid overload, unspecified; J43.9 Emphysema, unspecified; R19.7 Diarrhea, unspecified; R41.0 Disorientation, unspecified; R33.9 Retention of urine, unspecified; R97.8 Other abnormal tumor markers; R45.1 Restlessness and agitation
CPT/HCPCS: 36415; 71045; 71046; 71260; 71270; 74018; 74177; 74178; 74250; 76700; 80048; 80053; 80306; 80320; 81000; 82140; 82274; 82805; 82945; 83605; 83615; 83735; 83880; 83986; 84100; 84157; 84478; 84484; 85007; 85025; 85027; 85379; 85610; 85730; 86141; 86301; 87040; 87070; 87081; 87088; 87205; 87324; 87449; 87804; 88112; 88305; 88313; 88341; 88342; 89051; 93005; 93306; 94640; 94664; 94760; 96361; 96365; 96375